=== PATIENT | female | born 1955 | race African-American/Black ===

== ENCOUNTER → 2024-10-06 | Outpatient (CLI) | payer MEDICARE, MEDICAID, SELFPAY ==
[2024-10-06 10:17] LABS: Collection Type, Urine Clean Catch
[2024-10-06 10:45] LABS: Basophils % (Auto) 1 % (0-2.5); Eosinophils # (Auto) 0.1 Thou/mm3 (0.0-0.5); Eosinophils % (Auto) 2 % (0-10); Hematocrit 32.2 % (36.0-46.0); Hemoglobin 10.3 g/dL (12.0-16.0); Immature Granulocytes % (Auto) 0 % (0-0); Immature Granulocytes Auto 0.01 Thou/mm3 (0.00-0.00); Lymphocytes # (Auto) 0.7 Thou/mm3 (1.0-4.8); Lymphocytes % (Auto) 19 % (10-50); Mean Corpuscular Hemoglobin 29.9 pg (25.0-35.0); Mean Corpuscular Volume 93 fL (80-100); Monocytes # (Auto) 0.2 Thou/mm3 (0.0-0.8); Monocytes % (Auto) 5 % (0-12); Neutrophils # (Auto) 2.7 Thou/mm3 (1.8-7.7); Neutrophils % (Auto) 73 % (37-80); Nucleated Red Blood Cell % 0 /100 WBC (0); Platelet Count 204 Thou/mm3 (140-440); RDW Standard Deviation 53.9 fL (36.4-46.3); Red Blood Count 3.45 Miln/mm3 (4.00-5.20); White Blood Count 3.7 Thou/mm3 (3.6-11.0)
[2024-10-06 11:03] LABS: Bilirubin,Urine Negative (Negative); Blood,Urine Negative (Negative); Clarity,Urine Clear (Clear/Hazy); Color,Urine Colorless (Lt Yel-Yel); Glucose, Urine Negative (Negative); Hyaline Casts,Urine < 1 /hpf (0-1); Ketones,Urine Negative (Negative); Leukocyte Esterase,Urine Positive (Negative); Nitrite,Urine Negative (Negative); Protein,Urine Negative (Neg - Trace); RBC,Urine 1 /hpf (0-3); Squamous Epithelial Cell,Urine 1 /hpf (0-5); Urobilinogen,Urine Negative mg/dL (0.0-1.0); WBC,Urine 7 /hpf (0-5)
[2024-10-06 11:30] LABS: Creatinine MALB Rnd Ur 35 mg/dL (30-125); Microalbumin Creat Ratio 9 mg/gCrea (<30); Microalbumin, Random Urine 3 mg/L (0-300)
[2024-10-06 12:06] LABS: Parathyroid Hormone Intact 51.2 pg/ml (18.5-88.0)
[2024-10-06 12:44] LABS: Alanine Aminotransferase 47 U/L (10-49); Albumin, Serum 4.2 gm/dL (3.4-4.8); Alkaline Phosphatase 84 U/L (46-116); Anion Gap 10 (7-16); Aspartate Amino Transferase 99 U/L (0-34); BUN/Creatinine Ratio 19 Ratio (12-20); Bilirubin,Direct 0.4 mg/dL (0.0-0.3); Bilirubin,Total 0.9 mg/dL (0.3-1.2); Blood Urea Nitrogen 28 mg/dL (9-23); Calcium 9.1 mg/dL (8.3-10.6); Calcium (Corrected) 9.1 mg/dL (8.5-10.1); Carbon Dioxide 22.4 mMol/L (20.0-31.0); Cardiac Risk Estimate 1.8 RATIO (3.7-5.6); Chloride 109 mMol/L (98-107); Cholesterol 98 mg/dL (132-200); Creatinine (Component) 1.5 mg/dL (0.6-1.3); Glucose 84 mg/dL (74-106); HDL Cholesterol 54 mg/dL (40-60); LDL Cholesterol,Calculated 30 mg/dL (0-130); Osmolality,Calculated 285 (275-295); Phosphorous 3.4 mg/dL (2.4-5.1); Potassium 4.2 mMol/L (3.4-5.1); Sodium 141 mMol/L (136-145); Total Protein 7.2 gm/dL (5.7-8.2); Triglycerides 68 mg/dL (30-150); eGFR 38 See Note
== END | disposition home or self-care (01) ==
PROVIDERS: PCP Student in an Organized Health Care Education/Training Program; Referring Provider Internal Medicine; Visit Provider Internal Medicine
DX: I12.9 Hypertensive chronic kidney disease with stage 1 through stage 4 chronic kidney disease, or unspecified chronic kidney disease (principal); N18.30 Chronic kidney disease, stage 3 unspecified; E78.5 Hyperlipidemia, unspecified
CPT/HCPCS: 36415; 80061; 80069; 80076; 81001; 82043; 82570; 83970; 85025

== ENCOUNTER 2024-11-04 13:08 | Outpatient (AMB) | payer MEDICARE, MEDICAID, SELFPAY ==
--- NOTE | 2024-11-04 13:21 | PD.RESCLINIC ---
Vital Signs 11/06/24 08:27 Height 1.63 m Height Method Stated Weight 83.092 kg Weight Measurement Method Standing Scale BMI 31.2 BP 132/84 H Blood Pressure Source Automatic Cuff Blood Pressure Location Left Upper Arm Position Sitting Respiration 16 Pulse 90 Pulse Source Monitor Temp 98.2 F Temp Source Temporal Artery Scan Pulse Oximetry (%) 98 Oxygen Delivery Method Room Air Allergies/Meds Allergies & Medications Allergies banana Allergy (Verified 11/06/24 08:29) heparin Allergy (Verified 11/06/24 08:29) rice Allergy (Verified 11/06/24 08:29) Medication Reconciliation meclizine 25 mg tablet 25 mg PO TID 11/19/23 [History Confirmed 07/08/24] melatonin 3 mg tablet 3 mg PO HS 11/19/23 [History Confirmed 07/08/24] umeclidinium 62.5 mcg-vilanterol 25 mcg/actuation powdr for inhalation (Anoro Ellipta) 1 inh inhalation QDAY PRN Dizziness Or Vertigo 11/19/23 [History Confirmed 07/08/24] albuterol 90 mcg/actuation aerosol inhaler 180 mcg inhalation Q4HR PRN sob 11/30/23 [History Confirmed 07/08/24] pantoprazole 40 mg tablet,delayed release 40 mg PO QDAY 1 month #60 tabs 12/11/23 [Rx Confirmed 07/08/24] fluticasone propionate 110 mcg/actuation HFA aerosol inhaler 1 puff inhalation BID wheezing #12 grams 02/08/24 [Rx Confirmed 07/08/24] hydrocodone 5 mg-acetaminophen 325 mg tablet 1 tab PO BID PRN pain #14 tabs 03/04/24 [Rx Confirmed 07/08/24] carisoprodol 350 mg tablet 350 mg PO TID PRN muscle pain #60 tabs 03/07/24 [Rx Confirmed 07/08/24] calcitriol 0.25 mcg capsule 0.25 mcg PO QDAY Chronic kidney Disease #90 caps 04/22/24 [Rx Confirmed 07/08/24] warfarin 5 mg tablet 5 mg PO QDAY@1200 Atrial Fibrillation #90 tabs 04/22/24 [Rx Confirmed 07/08/24] guaifenesin 100 mg/5 mL oral liquid 200 mg (10 mL) PO Q4H PRN congestion #473 mL 07/08/24 [Rx] amiodarone 100 mg tablet 100 mg PO BID 3 months #180 tabs 11/04/24 [Rx Confirmed 11/06/24] atorvastatin 80 mg tablet 80 mg PO QHS 1 month #30 tabs 11/04/24 [Rx Confirmed 11/06/24] diltiazem HCl 120 mg capsule,extended release 12 hr 120 mg PO BID 3 months #180 caps 11/04/24 [Rx Confirmed 11/06/24] furosemide 20 mg tablet 20 mg PO QDAY #7 tabs 11/04/24 [Rx Confirmed 11/06/24] nicotine 7 mg/24 hr daily transdermal patch 1 patch transdermal Q24H #14 ea 11/04/24 [Rx Confirmed 11/06/24] MA Intake Visit Data Collection New Patient or Established: Established Patient (seen at [facility] within 3 years) Seen by Clinical Staff ONLY (RN/RUSS): No Pain Present Currently: No Pain scale:: 0 Pain Scale Used: [employer]/Numerical Screw Remover Required: No PCP or OBGYN visit in last 3 months: Yes Hx Now: No Do You Feel Safe at Home: Yes Authorities Contacted: N/A Smoking Status Smoking Status: Current some day smoker Cessation Counseling Provided: LUZ ELENA was advised that quitting smoking is the single most important factor to protect the health of themselves and their family. Discussed the benefits of quitting smoking with patient. Encouraged patient to quit smoking and provided Cessation assistance materials and resources. Tobacco Use: Cigarette Years smoked: 20 Are you interested in quitting?: Yes Would you like additional Smoking Cessation Counseling?: No Immunization / Flu Flu Vaccine in the Last 12 Months: Yes Flu Vaccine Exclusion Criteria: Already Received Past Medical History Past Medical History NEUROLOGIC: Positive Cerebrovascular Accident CARDIAC: Positive Atrial Fibrillation and Congestive Heart Failure RESPIRATORY: Positive Chronic Obstructive Pulmonary Disease (COPD), Smoking and Smoking Exposure; Negative Smoking Cessation Counseling or Clubbing GASTROINTESTINAL: Positive Gastroesophageal Reflux Disease and Obesity (gastric bypass) GENITOURINARY: Positive Renal Disease MUSCULOSKELETAL: Positive Arthritis ENT: Positive Cataracts ENDOCRINE: Positive Diabetes Mellitus Type 2; Negative Diabetes Mellitus Type 1 HEMATOLOGIC: Positive Anemia Social History SMOKING STATUS: Smoking status: Current some day smoker ALCOHOL: Alcohol Intake: Current ALCOHOL FREQUENCY: Alcohol Intake Frequency: holidays/special occasions only HOUSING: Housing: mobile home LIVES WITH: Lives With: Spouse Patient Portal Questionaires Social History Living Situation History Housing: mobile home Housing Other:: pt lives with Tobacco History Smoking Status: Current some day smoker Alcohol History Alcohol Intake: Current Alcohol Intake Frequency: holidays/special occasions only Domestic Abuse History Do You Feel Safe at Home: Yes Review of Systems Report any current symptoms Only answer those that you have currently: Past Medical History Past Medical History Have you ever been diagnosed with any of the following: Neurological Problems Cerebrovascular Accident (CVA): Yes Cardiology Problems Atrial Fibrillation: Yes Congestive Heart Failure: Yes Respiratory Problems Chronic Obstructive Pulmonary Disease (COPD): Yes Smoking: Yes Smoking Cessation Counseling: No Smoking Exposure: Yes Clubbing: No Stomache/Intestinal Problems Gastroesophageal Reflux Disease: Yes Obesity: Yes (gastric bypass) Genital/Urinary Problems Renal Disease: Yes Musculoskeletal Problems Arthritis: Yes Head,Eye,Nose,Throat Problems Cataracts: Yes Endocrine Problems Diabetes Mellitus Type 1: No Diabetes Mellitus Type 2: Yes Blood Problems Anemia: Yes History of Present Illness HPI Narrative This 68-year-old female patient with past medical history for A-fib on amiodarone and warfarin, CKD III, COPD not on home oxygen, 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 She was managed for acute COPD exacerbation and atrial fibrilation in the hospital. Patient had problem with insurance coverage hence she was switched from eliquis to warfarin and was started on amiodarone after cardio consult for atrial fibrillation. Patient follows up with Dr Gaines, her outpatient research biologist. Patient reported that she feels improvement in her shortness of breath and only feels shortness of breath when she ambulates. Denies any other active concerns. She ran out from her amiodarone and was not taking them and needed refill for the medications. She continues to have irregular rhythm and feels palpitations. Plan was discussed with the patient that she would need INR testing in the lab today. Lab was called that patient's results will be required to be notified at Dr Gaines office once resulted. She was referred to Rotating Equipment Engineer, Dr Palmer for management of COPD. She was given refills for her medication amiodarone and albuterol inhaler. She was explained that she will need to get INR weekly or get an INR kit from cardiology clinic as warfarin is regulated with INR. She agreed to the plan and was reassured. 12/28/23: Patient was seen at the office today. Patients recent INR is 2.1 which is in therapeutic range. Patient has seen Dr Gaines and he plans to do cardioversion on January 02. She has appointment due in january with her Rotating Equipment Engineer. She had a concern for pain in her both knee joints more severe while walking. we ordered bilateral Knee XR to look for any pathology.She was advised to take Tylenolol 650 mg upto 3 times a day only for severe pain and stop taking aspirin due to interaction with warfarin. She will recieve an INR kit tomorrow and will follow up with Dr Gaines. She is currently taking warfarin 5 mg qday. She was advised to stop torsemide due to soft blood pressure and jardiance as her recent A1c was 5.3 and blood sugars were slightly above normal during hospital stay.We referred her to Dr Alves, Rubber Trimmer for her chronic kidney disease. We will follow on XR knee results.We will continue with rest of the management. 01/18/24: Patient was seen today in office. Patient was very teary and upset due to persistent symptoms of chest pain and shortness of breath. She reported having persistent palpitations and was concerned regarding her follow up with research biologist. Per Patient's wishes, we switched her Radio Interference Supervisor, Dr Posadas. I personally spoke to Dr Posadas to have a second opinion for ablation on phone call. He agreed to have a second opinion however due to her severe pulmonary hypertension and mitral valve repair research biologist suggested that shes not a candidate for ablation but he will follow up for symptomatic Atrial fib management Of note,Previously, she had a unsuccessful ablation per chart. Therefore , cardiology rec currently to increase her Diltiazem to 60 mg three times a day and continue with amiodarone 100 mg two times a day. Rest of the management will remain the same. She was advise to follow up with research biologist, automotive upholsterer & Orthopedics after scheduling her appt. She was advised to do her INR levels weekly in our [facility] and I will follow up until she sees research biologist. She had C/O severe bilateral knee , she has osteoarthritis B/L per XR knee. Per ortho, patient needs to have XR 4V B/L knee weight bearing as well. She was given norco 5/325 only 14 tabs for her severe knee pain. Advised her to follow up after four weeks. 02/08/2024: Patient was seen today at the office visit for follow-up. Patient seem to be asymptomatic and really pleasant and satisfied with her new research biologist, Dr. Sherrie Posadas. She reported that she had less frequent episodes of palpitations and shortness of breath. Per cardiology, her Cardizem dose was changed to 60 mg twice daily 2 capsules at morning and night. Patient also visited director of recruiting recommended to continue her inhalers albuterol, fluticasone inhalers. She also visited automotive upholsterer, Dr Alves. She has microalbuminuria. Labs showed normocytic anemia and kidney functions 30% with creatinine 1.8. We added losartan 25 mg for proteinuria. Medications were refilled. Patient has history of old CVA with ataxia there for she was advised to follow-up with her physical therapy outpatient. Patient reported having regurgitation with retrosternal burning therefore referral was made with returns supervisor, Dr. Mckeon. She received corticosteroids injections intra-articular last week feels significantly improved when she visited Dr. Lai, orthopedics. 07/01/2024: Patient was seen in the [facility] today. Patient reported to have cough from last 2 weeks associated with white phlegm which is present only when she goes to bed for sleeping. She is actively smoking cigarette 6 cigarettes every day and trying to cut back on that. Patient denied any fever any chills, chest pain, any other signs of infection. She did not had swelling in her lower extremities. She was taking her home medications with compliance. Patient was advised to follow-up next week with new orders chest x-ray, BMP, BNP and was given prescription of prednisone 5 mg for 7 days for possible concern for component of bronchospasm and the underlying setting of COPD as culprit for her productive cough. Examination was significant for cough elicited on prolonged expiration. Patient was advised to continue her home medications as prescribed and will likely be follow-up next week with lab results. 07/08/24: Pt came for follow up for labs and she showed improvement in her SOB after steroids course and albuterol inhaler in combination with other inhaler. Still compliants of having orhtopnea. Chest x-ray showed B/L edema and mod vasc congestion. BNP 115 and Kidney functions showing Cr 1.8 Electrolyes unremarkable.Patient was advised to take lasix extra dose half pill once in a week to get rid of extra fluids if SBP above 120 and DBP above 80 so taking 60 mg lasix once every week.Will be given referral for Sales Technician Home Theater for eye examination due to haziness in right eye. 11/04/2024: Patient was seen and examined in the clinic today. Patient has been doing well and did not had any active concerns. She has been feeling very good and has been exercising every day. Examination showed improvement in bilateral air entry and no wheezing was heard. Patient wanted to have a prescription refill for amiodarone, diltiazem, atorvastatin and patient wished to change pharmacy to [facility]. Patient also wanted to have follow-up with household worker for eye checkup, GI follow-up for GERD and DANCE COACH follow-up for breast examination. Referrals were given. Patient was advised to make an appointment with respective referrals. Medications were reviewed. Patient is getting her labs/blood work by automotive upholsterer, Dr Alves next month. Of note, patient's Lasix dose was reduced to 20 mg once daily by automotive upholsterer. Review of Systems Review of Systems Systems Reviewed: All systems reviewed, normal except as documented Objective/Exam Narrative Physical exam: General: Pt is not in acute distress, answering questions appropriately, making appropriate eye contact. Saturating well on room air. HEENT: Normocephalic, atraumatic, EOMI, PERRLA, moist oral mucosa, Cardiac: irregular rate and rhythm, normal S1/S2, no murmurs. Soft blood pressure Lungs: Bilateral clear breath sounds heard on auscultation. No wheezing heard. Abdomen: Soft, nontender, nondistended, positive bowel sounds in all quadrants. No guarding or rebound tenderness. Neurology:Alert and oriented x 3. Cranial nerves II to XII intact and patient able to move all 4 extremities. Extremities: Normal to inspection, no edema, no cyanosis, strong peripheral pulses. Psych: appropriate mood and affect. Assessment & Plan Diagnosis / Problem List (1) Atrial fibrillation: Status: Acute Qualifiers: Atrial fibrillation type: unspecified chronic Qualified Code(s): I48.20 - Chronic atrial fibrillation, unspecified Assessment & Plan: #Atrial fibrillation, rate controlled ? Patient has a history of chronic A-fib currently rate controlled. Follows Dr. Posadas, research biologist. ? No active complaints Plan: ? Patient was given prescription refills for amiodarone 100 mg twice daily and diltiazem ER 120 mg Q12 [facility] ? Patient has been following with Dr. Posadas as outpatient ? Patient needed referral for eye checkup for ophthalmology, needed referral for this examination to DANCE COACH and needed appointment for GI specialist as she is has a history of GERD ? Patient was recommended to book an appointment for the respective referrals and can follow-up in the clinic as needed ? Patient currently have refills on rest of her medications for COPD and CKD ? Patient will get blood work next month with Dr. Alves, automotive upholsterer and dose of Lasix was reduced by automotive upholsterer to 20 mg once daily Patient was seen and discussed with attending physician, Dr.Watankunakorn Dr. Martha MD, PGY 2 (2) COPD (chronic obstructive pulmonary disease): Status: Acute (3) CKD (chronic kidney disease) stage 3, GFR 30-59 ml/min: Status: Acute (4) GERD (gastroesophageal reflux disease): Status: Acute Orders: Referrals Ophthalmology DANCE COACH Gastroenterology Additional Assessment Internal Medicine Attending Note: Case discussed with and agree with note and management plan of Resident Physician as per Resident's Note above. Issues of concern for present visit are as follows: Follow-up visit. History of atrial fibrillation, COPD, CKD. Patient continues to follow with cardiology, also follows with nephrology. Has blood work scheduled for next month. Needed refills are provided today. Referral for ophthalmology evaluation, CUSTOMER SERVICE ENGINEER for exam, referral to gastroenterology with history of GERD, possible candidate for upper endoscopy to evaluate. Otherwise doing well. Edgar Richardson MD Advanced Care Planning Advance care planning discussed with:: patient Physician Billing Established Patient Established Patient: E/M Level 3-CPT 23404 Office Procedures [facility] Level of Care Nursing/Assessment Patient Status: Established Patient Nursing Assessment/Reassessment: Medication Reconciliation, Update PMH in EMR and Vital Signs Coordination of Care: Complex Care and Chronic Disease 1-5, Consent,records obtained, informed consent, Education Simp Pt/Fam and Staff clarify orders Established Patient Charge Established Patient Point Assignment: 85 Established Patient Point Charge: EP Level 3 (80-115)
[2024-11-06 08:27] VITALS: BP 132/84; PULSE 90; RESP 16; TEMP 36.8; O2SAT 98; BMI 31.2
== END 2024-11-04 15:00 | disposition home or self-care (01) ==
LOC: HODAHC 13:08
PROVIDERS: PCP Student in an Organized Health Care Education/Training Program; Referring Provider Student in an Organized Health Care Education/Training Program; Supervising Provider Internal Medicine; Visit Provider Student in an Organized Health Care Education/Training Program
DX: I48.20 Chronic atrial fibrillation, unspecified (principal); J44.9 Chronic obstructive pulmonary disease, unspecified; N18.9 Chronic kidney disease, unspecified; K21.9 Gastro-esophageal reflux disease without esophagitis; Z76.0 Encounter for issue of repeat prescription
CPT/HCPCS: 99213; G0463

== ENCOUNTER 2024-12-02 13:28 | Outpatient (AMB) | payer MEDICARE, MEDICAID, SELFPAY ==
[2024-12-02 13:48] VITALS: BP 88/60; PULSE 78; RESP 16; TEMP 36.3; O2SAT 93; BMI 25.8
--- NOTE | 2024-12-02 13:48 | ACNOTE_ITS ---
Vital Signs 12/02/24 13:48 Height 1.63 m Height Method Stated Weight 68.549 kg Weight Measurement Method Standing Scale BMI 25.8 BP 88/60 L Blood Pressure Source Automatic Cuff Blood Pressure Location Left Upper Arm Position Sitting Respiration 16 Pulse 78 Pulse Source Monitor Temp 97.3 F Temp Source Temporal Artery Scan Pulse Oximetry (%) 93 L Oxygen Delivery Method Room Air Allergies/Meds Allergies & Medications Allergies banana Allergy (Verified 12/02/24 13:49) heparin Allergy (Verified 12/02/24 13:49) rice Allergy (Verified 12/02/24 13:49) MA Intake Visit Data Collection New Patient or Established: Established Patient (seen at [facility] within 3 years) Seen by Clinical Staff ONLY (RN/MA): No Pain Present Currently: No Pain scale:: 0 Pain Scale Used: [employer]/Numerical Second Language Tutor Required: No PCP or OBGYN visit in last 3 months: Yes Hx Now: No Do You Feel Safe at Home: Yes Authorities Contacted: N/A Smoking Status Smoking Status: Current some day smoker Cessation Counseling Provided: LUZ ELENA was advised that quitting smoking is the single most important factor to protect the health of themselves and their family. Discussed the benefits of quitting smoking with patient. Encouraged patient to quit smoking and provided Cessation assistance materials and resources. Tobacco Use: Cigarette Years smoked: 20 Are you interested in quitting?: No Immunization / Flu Flu Vaccine in the Last 12 Months: No Flu Vaccine Exclusion Criteria: No Exclusion Criteria Past Medical History Past Medical History NEUROLOGIC: Positive Cerebrovascular Accident CARDIAC: Positive Atrial Fibrillation and Congestive Heart Failure RESPIRATORY: Positive Chronic Obstructive Pulmonary Disease (COPD), Smoking and Smoking Exposure; Negative Smoking Cessation Counseling or Clubbing GASTROINTESTINAL: Positive Gastroesophageal Reflux Disease and Obesity (gastric bypass) GENITOURINARY: Positive Renal Disease MUSCULOSKELETAL: Positive Arthritis ENT: Positive Cataracts ENDOCRINE: Positive Diabetes Mellitus Type 2; Negative Diabetes Mellitus Type 1 HEMATOLOGIC: Positive Anemia Social History SMOKING STATUS: Smoking status: Current some day smoker ALCOHOL: Alcohol Intake: Current ALCOHOL FREQUENCY: Alcohol Intake Frequency: holidays/special occasions only HOUSING: Housing: mobile home LIVES WITH: Lives With: Spouse Patient Portal Questionaires Social History Living Situation History Housing: mobile home Housing Other:: pt lives with Tobacco History Smoking Status: Current some day smoker Alcohol History Alcohol Intake: Current Alcohol Intake Frequency: holidays/special occasions only Domestic Abuse History Do You Feel Safe at Home: Yes Review of Systems Report any current symptoms Only answer those that you have currently: Past Medical History Past Medical History Have you ever been diagnosed with any of the following: Neurological Problems Cerebrovascular Accident (CVA): Yes Cardiology Problems Atrial Fibrillation: Yes Congestive Heart Failure: Yes Respiratory Problems Chronic Obstructive Pulmonary Disease (COPD): Yes Smoking: Yes Smoking Cessation Counseling: No Smoking Exposure: Yes Clubbing: No Stomache/Intestinal Problems Gastroesophageal Reflux Disease: Yes Obesity: Yes (gastric bypass) Genital/Urinary Problems Renal Disease: Yes Musculoskeletal Problems Arthritis: Yes Head,Eye,Nose,Throat Problems Cataracts: Yes Endocrine Problems Diabetes Mellitus Type 1: No Diabetes Mellitus Type 2: Yes Blood Problems Anemia: Yes History of Present Illness HPI Narrative This 68-year-old female patient with past medical history for A-fib on amiodarone and warfarin, CKD III, COPD not on home oxygen, 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 She was managed for acute COPD exacerbation and atrial fibrilation in the hospital. Patient had problem with insurance coverage hence she was switched from eliquis to warfarin and was started on amiodarone after cardio consult for atrial fibrillation. Patient follows up with Dr Gaines, her outpatient insurance associate. Patient reported that she feels improvement in her shortness of breath and only feels shortness of breath when she ambulates. Denies any other active concerns. She ran out from her amiodarone and was not taking them and needed refill for the medications. She continues to have irregular rhythm and feels palpitations. Plan was discussed with the patient that she would need INR testing in the lab today. Lab was called that patient's results will be required to be notified at Dr Gaines office once resulted. She was referred to Veneer Manufacturer, Dr Palmer for management of COPD. She was given refills for her medication amiodarone and albuterol inhaler. She was explained that she will need to get INR weekly or get an INR kit from cardiology clinic as warfarin is regulated with INR. She agreed to the plan and was reassured. 12/28/23: Patient was seen at the office today. Patients recent INR is 2.1 which is in therapeutic range. Patient has seen Dr Gaines and he plans to do cardioversion on January 02. She has appointment due in january with her Veneer Manufacturer. She had a concern for pain in her both knee joints more severe while walking. we ordered bilateral Knee XR to look for any pathology.She was advised to take Tylenolol 650 mg upto 3 times a day only for severe pain and stop taking aspirin due to interaction with warfarin. She will recieve an INR kit tomorrow and will follow up with Dr Gaines. She is currently taking warfarin 5 mg qday. She was advised to stop torsemide due to soft blood pressure and jardiance as her recent A1c was 5.3 and blood sugars were slightly above normal during hospital stay.We referred her to Dr Alves, Parole Hearing Officer for her chronic kidney disease. We will follow on XR knee results.We will continue with rest of the management. 01/18/24: Patient was seen today in office. Patient was very teary and upset due to persistent symptoms of chest pain and shortness of breath. She reported having persistent palpitations and was concerned regarding her follow up with insurance associate. Per Patient's wishes, we switched her Professor Of Food Biochemistry, Dr Posadas. I personally spoke to Dr Posadas to have a second opinion for ablation on phone call. He agreed to have a second opinion however due to her severe pulmonary hypertension and mitral valve repair insurance associate suggested that shes not a candidate for ablation but he will follow up for symptomatic Atrial fib management Of note,Previously, she had a unsuccessful ablation per chart. Therefore , cardiology rec currently to increase her Diltiazem to 60 mg three times a day and continue with amiodarone 100 mg two times a day. Rest of the management will remain the same. She was advise to follow up with insurance associate, scientific research manager & Orthopedics after scheduling her appt. She was advised to do her INR levels weekly in our [facility] and I will follow up until she sees insurance associate. She had C/O severe bilateral knee , she has osteoarthritis B/L per XR knee. Per ortho, patient needs to have XR 4V B/L knee weight bearing as well. She was given norco 5/325 only 14 tabs for her severe knee pain. Advised her to follow up after four weeks. 02/08/2024: Patient was seen today at the office visit for follow-up. Patient seem to be asymptomatic and really pleasant and satisfied with her new insurance associate, Dr. Sherrie Posadas. She reported that she had less frequent episodes of palpitations and shortness of breath. Per cardiology, her Cardizem dose was changed to 60 mg twice daily 2 capsules at morning and night. Patient also visited energy project manager recommended to continue her inhalers albuterol, fluticasone inhalers. She also visited scientific research manager, Dr Alves. She has microalbuminuria. Labs showed normocytic anemia and kidney functions 30% with creatinine 1.8. We added losartan 25 mg for proteinuria. Medications were refilled. Patient has history of old CVA with ataxia there for she was advised to follow-up with her physical therapy outpatient. Patient reported having regurgitation with retrosternal burning therefore referral was made with tower equipment installer, Dr. Mckeon. She received corticosteroids injections intra- articular last week feels significantly improved when she [facility]. 07/01/2024: Patient was seen in the [facility] today. Patient reported to have cough from last 2 weeks associated with white phlegm which is present only when she goes to bed for sleeping. She is actively smoking cigarette 6 cigarettes every day and trying to cut back on that. Patient denied any fever any chills, chest pain, any other signs of infection. She did not had swelling in her lower extremities. She was taking her home medications with compliance. Patient was advised to follow-up next week with new orders chest x- ray, BMP, BNP and was given prescription of prednisone 5 mg for 7 days for possible concern for component of bronchospasm and the underlying setting of COPD as culprit for her productive cough. Examination was significant for cough elicited on prolonged expiration. Patient was advised to continue her home medications as prescribed and will likely be follow-up next week with lab results. 07/08/24: Pt came for follow up for labs and she showed improvement in her SOB after steroids course and albuterol inhaler in combination with other inhaler. Still compliants of having orhtopnea. Chest x-ray showed B/L edema and mod vasc congestion. BNP 115 and Kidney functions showing Cr 1.8 Electrolyes unremarkable.Patient was advised to take lasix extra dose half pill once in a week to get rid of extra fluids if SBP above 120 and DBP above 80 so taking 60 mg lasix once every week.Will be given referral for Remote Sensing Program Manager for eye examination due to haziness in right eye. 11/04/2024: Patient was seen and examined in the clinic today. Patient has been doing well and did not had any active concerns. She has been feeling very good and has been exercising every day. Examination showed improvement in bilateral air entry and no wheezing was heard. Patient wanted to have a prescription refill for amiodarone, diltiazem, atorvastatin and patient wished to change pharmacy to [facility]. Patient also wanted to have follow-up with graining machine operator for eye checkup, GI follow-up for GERD and WALL TAPER follow-up for breast examination. Referrals were given. Patient was advised to make an appointment with respective referrals. Medications were reviewed. Patient is getting her labs/blood work by scientific research manager, Dr Alves next month. Of note, patient's Lasix dose was reduced to 20 mg once daily by scientific research manager. 12/02/2024: Patient was seen and examined in the clinic. Patient reported extreme fatigability and burning sensation with numbness and tingling in both lower extremities. She reported that she had an episode of presyncope last week during her wedding. Examination showed no lower extremity edema or wheezing. She was having tachycardia irregularly irregular. She wanted to have prescription for her medications which was given. She was also complaining of muscle soreness and feeling tired. She also reported to have cold intolerance despite warm temperature outside.Plan is to order thyroid function test, iron panel and A1c as all the tests were performed last year. Additionally, atorvastatin was discontinued and pravastatin 40 mg was started given less risk of muscle weakness as compared to atorvastatin. Her blood pressure was really soft and was recommended to take Lasix every other day and follow-up with cardiology in a week. Follow-up in a week in clinic. Review of Systems Review of Systems Systems Reviewed: All systems reviewed, normal except as documented Objective/Exam Narrative Physical exam: General: Pt is not in acute distress, answering questions appropriately, making appropriate eye contact. Saturating well on room air. HEENT: Normocephalic, atraumatic, EOMI, PERRLA, moist oral mucosa, Cardiac: irregular rate and rhythm, normal S1/S2, no murmurs. Soft blood pressure Lungs: Bilateral clear breath sounds heard on auscultation. No wheezing heard. Abdomen: Soft, nontender, nondistended, positive bowel sounds in all quadrants. No guarding or rebound tenderness. Neurology:Alert and oriented x 3. Cranial nerves II to XII intact and patient able to move all 4 extremities. Extremities: Normal to inspection, no edema, no cyanosis, strong peripheral pulses. Psych: appropriate mood and affect. Assessment & Plan Diagnosis / Problem List (1) Neuropathy of foot: Status: Acute Qualifiers: Laterality: unspecified laterality Qualified Code(s): G57.90 - Unspecified mononeuropathy of unspecified lower limb Assessment & Plan: ? Patient presented with numbness and tingling with burning sensation in both lower extremities. Plan: ? Started on Lyrica 25 mg at night to evaluate if it helps ? Ordered A1c to screen for diabetes and iron panel for iron deficiency (2) Iron deficiency: Status: Acute Assessment & Plan: ? Patient reported that she is feeling fatigued out, generalized weakness and had a presyncope episode a week ago. ?Her blood pressure was soft 88/60 Plan: ? Recommended to continue Lasix 20 mg every other day ? Ordered iron panel to screen for iron deficiency as she has a history of mechanical valve replacement as well ?Patient will follow-up with insurance associate, Dr. Posadas on Sunday on 12/05/2024 (3) Screening for thyroid disorder: Status: Acute Assessment & Plan: ? Patient reported to have cold intolerance and fatigability with dryness of skin Plan: ? Ordered thyroid function test to evaluate for thyroid abnormalities (4) Screening for diabetes mellitus: Status: Acute Assessment & Plan: ? Patient reported burning sensation with numbness and tingling in both lower extremities. Plan: ? Ordered A1c to rule out diabetes (5) Hypotension: Status: Acute Assessment & Plan: ? Patient's blood pressure was 88/60, heart rate 78 and saturating 90% on room air Plan: ? Recommended to take Lasix 20 mg every other day ? Patient did not appear volume overloaded ? Encouraged on using cane while walking to avoid fall ? Patient is has a follow-up with insurance associate on 12/05 Patient was seen and discussed with attending physician, Dr.Wat[place]akunakorn Dr. Martha MD, PGY 2 Orders: Orders Free T4 (Free Thyroxine) Today Z13.29 - Encounter for screening for other suspected endocrine disorder Ambulatory Hemoglobin A1C Today Z13.1 - Encounter for screening for diabetes mellitus Thyroid Stimulating Hormone Today Z13.29 - Encounter for screening for other suspected endocrine disorder Iron Panel Today E61.1 - Iron deficiency Advanced Care Planning Advance care planning discussed with:: patient Office Procedures [facility] Level of Care Nursing/Assessment Patient Status: Established Patient Nursing Assessment/Reassessment: Medication Reconciliation, Update PMH in EMR and Vital Signs Coordination of Care: Complex Care and Chronic Disease 1-5, Consent,records obtained, informed consent, Education Simp Pt/Fam and Staff clarify orders Established Patient Charge Established Patient Point Assignment: 85 Established Patient Point Charge: EP Level 3 (80-115)
== END 2024-12-02 14:18 | disposition home or self-care (01) ==
LOC: HODAHC 13:28
PROVIDERS: PCP Student in an Organized Health Care Education/Training Program; Referring Provider Student in an Organized Health Care Education/Training Program; Supervising Provider Internal Medicine; Visit Provider Student in an Organized Health Care Education/Training Program
DX: G62.9 Polyneuropathy, unspecified (principal); E61.1 Iron deficiency; R53.83 Other fatigue; I95.9 Hypotension, unspecified
CPT/HCPCS: 99213; G0463

== ENCOUNTER → 2024-12-02 | Outpatient (CLI) | payer MEDICARE, SELFPAY ==
[2024-12-02 16:28] LABS: Glucose Estimated Average 111 mg/dL (80-131); Hemoglobin A1C 5.5 % Hgb (4.8-6.0)
[2024-12-02 19:00] LABS: Free T4 (Free Thyroxine) 1.53 ng/dL (0.89-1.76); Thyroid Stimulating Hormone 1.14 uIU/mL (0.55-4.78)
[2024-12-02 21:25] LABS: Iron 72 mcg/dL (50-170); Percent Iron Saturation 23 % (20-55); Total Iron Binding Capacity 301 mcg/dL (250-425); Unsaturated Iron Binding 229 (225-295)
== END | disposition home or self-care (01) ==
PROVIDERS: PCP Student in an Organized Health Care Education/Training Program; Referring Provider Student in an Organized Health Care Education/Training Program; Visit Provider Student in an Organized Health Care Education/Training Program
DX: E61.1 Iron deficiency (principal); Z13.1 Encounter for screening for diabetes mellitus; Z13.29 Encounter for screening for other suspected endocrine disorder
CPT/HCPCS: 36415; 83036; 83540; 83550; 84439; 84443

== ENCOUNTER 2024-12-23 13:38 | Outpatient (AMB) | payer MEDICARE, SELFPAY ==
[2024-12-23 13:52] VITALS: BP 90/59; PULSE 76; RESP 14; TEMP 36.2; O2SAT 98; BMI 25.6
--- NOTE | 2024-12-23 13:52 | ACNOTE_ITS ---
Vital Signs 12/23/24 13:52 Height 1.63 m Height Method Stated Weight 68.152 kg Weight Measurement Method Standing Scale BMI 25.6 BP 90/59 L Blood Pressure Source Automatic Cuff Blood Pressure Location Left Upper Arm Position Sitting Respiration 14 Pulse 76 Pulse Source Monitor Temp 97.2 F Temp Source Oral Pulse Oximetry (%) 98 Oxygen Delivery Method Room Air Allergies/Meds Allergies & Medications Allergies banana Allergy (Verified 12/23/24 13:53) heparin Allergy (Verified 12/23/24 13:53) rice Allergy (Verified 12/23/24 13:53) Medication Reconciliation meclizine 25 mg tablet 25 mg PO TID 11/19/23 [History Confirmed 12/23/24] melatonin 3 mg tablet 3 mg PO HS 11/19/23 [History Confirmed 12/23/24] umeclidinium 62.5 mcg-vilanterol 25 mcg/actuation powdr for inhalation (Anoro [place] lipta) 1 inh inhalation QDAY PRN Dizziness Or Vertigo 11/19/23 [History Confirmed 12/23/24] albuterol 90 mcg/actuation aerosol inhaler 180 mcg inhalation Q4HR PRN sob 11/30/23 [History Confirmed 12/23/24] fluticasone propionate 110 mcg/actuation HFA aerosol inhaler 1 puff inhalation BID wheezing #12 grams 02/08/24 [Rx Confirmed 12/23/24] warfarin 5 mg tablet 5 mg PO QDAY@1200 Atrial Fibrillation #90 tabs 04/22/24 [Rx Confirmed 12/23/24] guaifenesin 100 mg/5 mL oral liquid 200 mg (10 mL) PO Q4H PRN congestion #473 mL 07/08/24 [Rx Confirmed 12/23/24] nicotine 7 mg/24 hr daily transdermal patch 1 patch transdermal Q24H #14 ea 11/04/24 [Rx Confirmed 12/23/24] amiodarone 100 mg tablet 100 mg PO BID 3 months #180 tabs 12/02/24 [Rx Confirmed 12/23/24] calcitriol 0.25 mcg capsule 0.25 mcg PO QDAY Chronic kidney Disease #90 caps 12/02/24 [Rx Confirmed 12/23/24] pantoprazole 40 mg tablet,delayed release 40 mg PO QDAY 1 month #60 tabs 12/02/24 [Rx Confirmed 12/23/24] pravastatin 40 mg tablet 40 mg PO QHS #90 tabs 12/02/24 [Rx Confirmed 12/23/24] pregabalin 25 mg capsule (Lyrica) 25 mg PO QHS #30 caps 12/02/24 [Rx Confirmed 12/23/24] cyanocobalamin (vitamin B-12) 1,000 mcg/mL injection solution 1,000 mcg IM QWEEK 4 weeks #4 mL 12/23/24 [Rx] furosemide 20 mg tablet 20 mg PO Q OTHER DAY #60 tabs 12/23/24 [Rx] vitamin B complex-vitamin C-folic acid 0.8 mg tablet (Mica-Mary) 1 tab PO QDAY #90 tabs 12/23/24 [Rx] MA Intake Visit Data Collection New Patient or Established: Established Patient (seen at [facility] within 3 years) Seen by Clinical Staff ONLY (RN/MA): No Reason for Visit:: LAB RESULTS Pain Present Currently: Yes Pain Location: Head Pain scale:: 7 Pain Scale Used: [employer]/Numerical Application Developer Manager Required: No PCP or OBGYN visit in last 3 months: Yes Hx Now: No Do You Feel Safe at Home: Yes Authorities Contacted: N/A Smoking Status Smoking Status: Current some day smoker Cessation Counseling Provided: LUZ ELENA was advised that quitting smoking is the single most important factor to protect the health of themselves and their family. Discussed the benefits of quitting smoking with patient. Encouraged patient to quit smoking and provided Cessation assistance materials and resources. Tobacco Use: Cigarette Years smoked: 20 Are you interested in quitting?: No Immunization / Flu Flu Vaccine in the Last 12 Months: Yes Flu Vaccine Exclusion Criteria: No Exclusion Criteria Past Medical History Past Medical History NEUROLOGIC: Positive Cerebrovascular Accident CARDIAC: Positive Atrial Fibrillation and Congestive Heart Failure RESPIRATORY: Positive Chronic Obstructive Pulmonary Disease (COPD), Smoking and Smoking Exposure; Negative Smoking Cessation Counseling or Clubbing GASTROINTESTINAL: Positive Gastroesophageal Reflux Disease and Obesity (gastric bypass) GENITOURINARY: Positive Renal Disease MUSCULOSKELETAL: Positive Arthritis ENT: Positive Cataracts ENDOCRINE: Positive Diabetes Mellitus Type 2; Negative Diabetes Mellitus Type 1 HEMATOLOGIC: Positive Anemia Social History SMOKING STATUS: Smoking status: Current some day smoker ALCOHOL: Alcohol Intake: Current ALCOHOL FREQUENCY: Alcohol Intake Frequency: holidays/special occasions only HOUSING: Housing: mobile home LIVES WITH: Lives With: Spouse Patient Portal Questionaires PHQ-9 PHQ-2 Over the last 2 weeks, how often have you been bothered by any of the following problems? 1. Little interest or pleasure in doing things: not at all 2. Feeling down, depressed, or hopeless: not at all Total score: 0 Social History Living Situation History Housing: mobile home Housing Other:: pt lives with Tobacco History Smoking Status: Current some day smoker Alcohol History Alcohol Intake: Current Alcohol Intake Frequency: holidays/special occasions only Domestic Abuse History Do You Feel Safe at Home: Yes Review of Systems Report any current symptoms Only answer those that you have currently: Past Medical History Past Medical History Have you ever been diagnosed with any of the following: Neurological Problems Cerebrovascular Accident (CVA): Yes Cardiology Problems Atrial Fibrillation: Yes Congestive Heart Failure: Yes Respiratory Problems Chronic Obstructive Pulmonary Disease (COPD): Yes Smoking: Yes Smoking Cessation Counseling: No Smoking Exposure: Yes Clubbing: No Stomache/Intestinal Problems Gastroesophageal Reflux Disease: Yes Obesity: Yes (gastric bypass) Genital/Urinary Problems Renal Disease: Yes Musculoskeletal Problems Arthritis: Yes Head,Eye,Nose,Throat Problems Cataracts: Yes Endocrine Problems Diabetes Mellitus Type 1: No Diabetes Mellitus Type 2: Yes Blood Problems Anemia: Yes History of Present Illness HPI Narrative This 68-year-old female patient with past medical history for A-fib on amiodarone and warfarin, CKD III, COPD not on home oxygen, 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 She was managed for acute COPD exacerbation and atrial fibrilation in the hospital. Patient had problem with insurance coverage hence she was switched from eliquis to warfarin and was started on amiodarone after cardio consult for atrial fibrillation. Patient follows up with Dr Gaines, her outpatient career guidance counselor. Patient reported that she feels improvement in her shortness of breath and only feels shortness of breath when she ambulates. Denies any other active concerns. She ran out from her amiodarone and was not taking them and needed refill for the medications. She continues to have irregular rhythm and feels palpitations. Plan was discussed with the patient that she would need INR testing in the lab today. Lab was called that patient's results will be required to be notified at Dr Gaines office once resulted. She was referred to Tow Operator, Dr Palmer for management of COPD. She was given refills for her medication amiodarone and albuterol inhaler. She was explained that she will need to get INR weekly or get an INR kit from cardiology clinic as warfarin is regulated with INR. She agreed to the plan and was reassured. 12/28/23: Patient was seen at the office today. Patients recent INR is 2.1 which is in therapeutic range. Patient has seen Dr Gaines and he plans to do cardioversion on January 02. She has appointment due in january with her Tow Operator. She had a concern for pain in her both knee joints more severe while walking. we ordered bilateral Knee XR to look for any pathology.She was advised to take Tylenolol 650 mg upto 3 times a day only for severe pain and stop taking aspirin due to interaction with warfarin. She will recieve an INR kit tomorrow and will follow up with Dr Gaines. She is currently taking warfarin 5 mg qday. She was advised to stop torsemide due to soft blood pressure and jardiance as her recent A1c was 5.3 and blood sugars were slightly above normal during hospital stay.We referred her to Dr Alves, [facility] for her chronic kidney disease. We will follow on XR knee results.We will continue with rest of the management. 01/18/24: Patient was seen today in office. Patient was very teary and upset due to persistent symptoms of chest pain and shortness of breath. She reported having persistent palpitations and was concerned regarding her follow up with career guidance counselor. Per Patient's wishes, we switched her Occupational Medicine Physician, Dr Posadas. I personally spoke to Dr Posadas to have a second opinion for ablation on phone call. He agreed to have a second opinion however due to her severe pulmonary hypertension and mitral valve repair career guidance counselor suggested that shes not a candidate for ablation but he will follow up for symptomatic Atrial fib management Of note,Previously, she had a unsuccessful ablation per chart. Therefore , cardiology rec currently to increase her Diltiazem to 60 mg three times a day and continue with amiodarone 100 mg two times a day. Rest of the man agement will remain the same. She was advise to follow up with career guidance counselor, miniature set constructor & Orthopedics after scheduling her appt. She was advised to do her INR levels weekly in our [facility] and I will follow up until she sees career guidance counselor. She had C/O severe bilateral knee , she has osteoarthritis B/L per XR knee. Per ortho, patient needs to have XR 4V B/L knee weight bearing as well. She was given norco 5/325 only 14 tabs for her severe knee pain. Advised her to follow up after four weeks. 02/08/2024: Patient was seen today at the office visit for follow-up. Patient seem to be asymptomatic and really pleasant and satisfied with her new career guidance counselor, Dr. Sherrie Posadas. She reported that she had less frequent episodes of palpitations and shortness of breath. Per cardiology, her Cardizem dose was changed to 60 mg twice daily 2 capsules at morning and night. Patient also visited signing agent recommended to continue her inhalers albuterol, fluticasone inhalers. She also visited miniature set constructor, Dr Alves. She has microalbuminuria. Labs showed normocytic anemia and kidney functions 30% with creatinine 1.8. We added losartan 25 mg for proteinuria. Medications were ref illed. Patient has history of old CVA with ataxia there for she was advised to follow-up with her physical therapy outpatient. Patient reported having regurgitation with retrosternal burning therefore referral was made with supervisor solder making, Dr. Mckeon. She received corticosteroids injections intra- articular last week feels significantly improved when she visited Dr. Lai, orthopedics. 07/01/2024: Patient was seen in the [facility] today. Patient reported to have cough from last 2 weeks associated with white phlegm which is present only when she goes to bed for sleeping. She is actively smoking cigarette 6 cigarettes every day and trying to cut back on that. Patient denied any fever any chills, chest pain, any other signs of infection. She did not had swelling in her lower extremities. She was taking her home medications with compliance. Patient was advised to follow-up next week with new orders chest x-ray, BMP, BNP and was given prescription of prednisone 5 mg for 7 days for possible concern for component of bronchospasm and the underlying setting of COPD as culprit for her productive cough. Examination was significant for cough elicited on prolonged expiration. Patient was advised to continue her home medications as prescribed and will likely be follow-up next week with lab results. 07/08/24: Pt came for follow up for labs and she showed improvement in her SOB after steroids course and albuterol inhaler in combination with other inhaler. Still compliants of having orhtopnea. Chest x-ray showed B/L edema and mod vasc congestion. BNP 115 and Kidney functions showing Cr 1.8 Electrolyes unremarkable.Patient was advised to take lasix extra dose half pill once in a week to get rid of extra fluids if SBP above 120 and DBP above 80 so taking 60 mg lasix once every week.Will be given referral for Inbound Customer Service Agent for eye examination due to haziness in right eye. 11/04/2024: Patient was seen and examined in the clinic today. Patient has been doing well and did not had any active concerns. She has been feeling very good and has been exercising every day. Examination showed improvement in bilateral air entry and no wheezing was heard. Patient wanted to have a prescription refill for amiodarone, diltiazem, atorvastatin and patient wished to change pharmacy to [facility]. Patient also wanted to have follow-up with potato sorter for eye checkup, GI follow-up for GERD and TEA TASTER follow-up for breast examination. Referrals were given. Patient was advised to make an appointment with respective referrals. Medications were reviewed. Patient is getting her labs/blood work by miniature set constructor, Dr Alves next month. Of note, patient's Lasix dose was reduced to 20 mg once daily by miniature set constructor. 12/02/2024: Patient was seen and examined in the clinic. Patient reported extreme fatigability and burning sensation with numbness and tingling in both lower extremities. She reported that she had an episode of presyncope last week during her wedding. Examination showed no lower extremity edema or wheezing. She was having tachycardia irregularly irregular. She wanted to have prescription for her medications which was given. She was also complaining of muscle soreness and feeling tired. She also reported to have cold intolerance despite warm temperature outside.Plan is to order thyroid function test, iron panel and A1c as all the tests were performed last year. Additionally, atorvastatin was discontinued and pravastatin 40 mg was started given less risk of muscle weakness as compared to atorvastatin. Her blood pressure was really soft and was recommended to take Lasix every other day and follow-up with cardiology in a week. Follow-up in a week in clinic. 12/23/24: Patient was seen and examined in the clinic today. She reported to have fatigability and generalized weakness with dryness of the mouth and dizziness. Patient reported that she has severe headache and has been having low blood pressure. She followed up with career guidance counselor a week ago and he recommended to stop taking diltiazem due to soft blood pressure and continue taking amiodarone and Lasix. Labs showed iron level, thyroid functions and A1c within normal limits. He was recommended to hold on Lasix for a week and prefer oral hydration with restarting Lasix on December 30 as every other day due to currently dehydrated clinical volume status. Patient reported to have improvement in her tingling and numbness with Lyrica and continued to had muscle soreness therefore, B12 and CMP were ordered. Her blood pressure was soft during this visit. Will follow-up with the labs. Patient was also complaining of pain in her knees therefore referral was given for physical therapy at least 3 times a week for 8 weeks and orthopedics referral for evaluation and possible another intra-articular steroid injection. Follow-up in a week. Review of Systems Review of Systems Systems Reviewed: All systems reviewed, normal except as documented Objective/Exam Narrative Physical exam: General: Pt is not in acute distress, answering questions appropriately, making appropriate eye contact. Saturating well on room air. HEENT: Normocephalic, atraumatic, EOMI, PERRLA, dry mucous membrane Cardiac: irregular rate and rhythm, normal S1/S2, systolic murmur grade 3 more on apex. Soft blood pressure Lungs: Bilateral clear breath sounds heard on auscultation. No wheezing heard. Abdomen: Soft, nontender, nondistended, positive bowel sounds in all quadrants. No guarding or rebound tenderness. Neurology:Alert and oriented x 3. Cranial nerves II to XII intact and patient able to move all 4 extremities. Extremities: Normal to inspection, no edema, no cyanosis, strong peripheral pulses. Psych: appropriate mood and affect. Assessment & Plan Diagnosis / Problem List (1) Osteoarthritis of knee: Status: Acute Qualifiers: Laterality: bilateral Osteoarthritis type: other secondary Qualified Code(s): M17.4 - Other bilateral secondary osteoarthritis of knee Assessment & Plan: ? Patient reported to have pain in both knees from past couple of weeks. She has received intra-articular steroid injection by Dr. Lai, orthopedics few months ago. ?Iron level, thyroid function and A1c within normal limits Plan: ? Physical therapy referral given 3 times a week for 8 weeks ? Referral given to orthopedics, Dr. Lai for further evaluation ? Recommended to use cane to avoid fall ? Follow-up with CMP and B12 levels ?Mica-vit and Lyrica to be continued (2) Hypotension: Status: Acute Qualifiers: Hypotension type: hypotension due to drug Qualified Code(s): I95.2 - Hypotension due to drugs Assessment & Plan: ? Patient has been having low blood pressure and followed up with career guidance counselor as a week ago ? Blood pressure was 99/52 during this visit ? Patient was symptomatic and complaining of dizziness and severe headache. She has been taking ibuprofen for headache. Plan: ? Recommended to take Excedrin as headache was more like migraine ? Recommended to avoid NSAIDs due to concern for NEHA ? Recommended to hold Lasix for a week hydrate and restart Lasix on December 30 every other day as patient appears clinically dehydrated ? Follow-up with CMP ?Diltiazem was discontinued by career guidance counselor, Dr. Posadas due to soft blood pressure ?Recommended to continue rest of the medications -- Patient was seen and discussed with attending physician, Dr.Watanakunakorn Dr. Martha MD, PGY 2 Orders: Orders Vitamin B12 12/23/24 Comprehensive Metabolic Panel 12/23/24 Referrals Orthopedics M17.9 - Osteoarthritis of knee, unspecified Physical Therapy - Referral M17.9 - Osteoarthritis of knee, unspecified Additional Assessment Internal Medicine Attending Note: Case discussed with and agree with note and management plan of Resident Physician as per Resident's Note above. Issues of concern for present visit are as follows: 3-week follow-up visit. Patient seen by cardiology week prior. History of severe pulmonary hypertension, mitral valve repair, symptomatic atrial fibrillation, history of unsuccessful ablation. Diltiazem discontinued. Remains on amiodarone and Lasix. Lasix also held for 1 week, and to be every other day on resumption. Patient encouraged to hydrate. Iron studies, thyroid function, and hemoglobin A1c within normal limits. Patient has some improvement in tingling and numbness with Lyrica. Noting bilateral knee pain, referred to physical therapy as well as orthopedic referral for evaluation, possible injections (patient on warfarin). Edgar Richardson MD Advanced Care Planning Advance care planning discussed with:: patient Physician Billing Established Patient Established Patient: E/M Level 3-CPT 69595 Office Procedures [facility] Level of Care Nursing/Assessment Patient Status: Established Patient Nursing Assessment/Reassessment: Medication Reconciliation, Update PMH in EMR and Vital Signs Coordination of Care: Complex Care and Chronic Disease 1-5, Consent,records obtained, informed consent, Education Simp Pt/Fam, Results/Orders obtained and Staff clarify orders Established Patient Charge Established Patient Point Assignment: 90 Established Patient Point Charge: EP Level 3 (80-115)
== END 2024-12-23 14:20 | disposition home or self-care (01) ==
LOC: HODAHC 13:38
PROVIDERS: PCP Student in an Organized Health Care Education/Training Program; Referring Provider Student in an Organized Health Care Education/Training Program; Supervising Provider Student in an Organized Health Care Education/Training Program; Visit Provider Student in an Organized Health Care Education/Training Program
DX: I95.9 Hypotension, unspecified (principal); M17.0 Bilateral primary osteoarthritis of knee; R20.2 Paresthesia of skin; R20.0 Anesthesia of skin; I48.91 Unspecified atrial fibrillation; R68.2 Dry mouth, unspecified
CPT/HCPCS: 99213; G0463

== ENCOUNTER → 2024-12-23 | Outpatient (CLI) | payer MEDICARE, SELFPAY ==
[2024-12-23 15:47] LABS: Alanine Aminotransferase 19 U/L (10-49); Albumin, Serum 3.8 gm/dL (3.4-4.8); Albumin/Globulin Ratio 1.4 (1.2-2.2); Alkaline Phosphatase 86 U/L (46-116); Anion Gap 7 (7-16); Aspartate Amino Transferase 37 U/L (0-34); BUN/Creatinine Ratio 13 Ratio (12-20); Bilirubin,Total 0.5 mg/dL (0.3-1.2); Blood Urea Nitrogen 23 mg/dL (9-23); Calcium 9.2 mg/dL (8.3-10.6); Calcium (Corrected) 9.4 mg/dL (8.5-10.1); Chloride 108 mMol/L (98-107); Creatinine (Component) 1.8 mg/dL (0.6-1.3); Globulin 2.8 gm/dL (2.3-3.5); Glucose 107 mg/dL (74-106); Osmolality,Calculated 288 (275-295); Potassium 4.4 mMol/L (3.4-5.1); Sodium 143 mMol/L (136-145); Total Protein 6.6 gm/dL (5.7-8.2); eGFR 30 See Note
[2024-12-23 15:50] LABS: Vitamin B12 336 pg/mL (211-911)
== END | disposition home or self-care (01) ==
PROVIDERS: PCP Student in an Organized Health Care Education/Training Program; Referring Provider Student in an Organized Health Care Education/Training Program; Visit Provider Student in an Organized Health Care Education/Training Program
DX: I95.9 Hypotension, unspecified (principal)
CPT/HCPCS: 36415; 80053; 82607

== ENCOUNTER 2024-12-30 14:55 | Outpatient (AMB) | payer MEDICARE, SELFPAY ==
[2024-12-30 15:06] VITALS: BP 86/56; PULSE 95; RESP 18; TEMP 36.8; O2SAT 95; BMI 25.0
--- NOTE | 2024-12-30 15:06 | PD.RESCLINIC ---
Vital Signs 12/30/24 15:06 Height 1.63 m Height Method Stated Weight 66.338 kg Weight Measurement Method Standing Scale BMI 25.0 BP 86/56 L Blood Pressure Source Automatic Cuff Blood Pressure Location Left Upper Arm Position Sitting Respiration 18 Pulse 95 Pulse Source Monitor Temp 98.2 F Temp Source Oral Pulse Oximetry (%) 95 Oxygen Delivery Method Room Air Allergies/Meds Allergies & Medications Allergies banana Allergy (Verified 12/30/24 15:07) heparin Allergy (Verified 12/30/24 15:07) rice Allergy (Verified 12/30/24 15:07) Medication Reconciliation meclizine 25 mg tablet 25 mg PO TID 11/19/23 [History Confirmed 12/30/24] melatonin 3 mg tablet 3 mg PO HS 11/19/23 [History Confirmed 12/30/24] umeclidinium 62.5 mcg-vilanterol 25 mcg/actuation powdr for inhalation (Anoro Ellipta) 1 inh inhalation QDAY PRN Dizziness Or Vertigo 11/19/23 [History Confirmed 12/30/24] albuterol 90 mcg/actuation aerosol inhaler 180 mcg inhalation Q4HR PRN sob 11/30/23 [History Confirmed 12/30/24] fluticasone propionate 110 mcg/actuation HFA aerosol inhaler 1 puff inhalation BID wheezing #12 grams 02/08/24 [Rx Confirmed 12/30/24] warfarin 5 mg tablet 5 mg PO QDAY@1200 Atrial Fibrillation #90 tabs 04/22/24 [Rx Confirmed 12/30/24] guaifenesin 100 mg/5 mL oral liquid 200 mg (10 mL) PO Q4H PRN congestion #473 mL 07/08/24 [Rx Confirmed 12/30/24] nicotine 7 mg/24 hr daily transdermal patch 1 patch transdermal Q24H #14 ea 11/04/24 [Rx Confirmed 12/30/24] amiodarone 100 mg tablet 100 mg PO BID 3 months #180 tabs 12/02/24 [Rx Confirmed 12/30/24] calcitriol 0.25 mcg capsule 0.25 mcg PO QDAY Chronic kidney Disease #90 caps 12/02/24 [Rx Confirmed 12/30/24] pantoprazole 40 mg tablet,delayed release 40 mg PO QDAY 1 month #60 tabs 12/02/24 [Rx Confirmed 12/30/24] pravastatin 40 mg tablet 40 mg PO QHS #90 tabs 12/02/24 [Rx Confirmed 12/30/24] pregabalin 25 mg capsule (Lyrica) 25 mg PO QHS #30 caps 12/02/24 [Rx Confirmed 12/30/24] cyanocobalamin (vitamin B-12) 1,000 mcg/mL injection solution 1,000 mcg IM QWEEK 4 weeks #4 mL 12/23/24 [Rx Confirmed 12/30/24] furosemide 20 mg tablet 20 mg PO Q OTHER DAY #60 tabs 12/23/24 [Rx Confirmed 12/30/24] vitamin B complex-vitamin C-folic acid 0.8 mg tablet (Mica-Mary) 1 tab PO QDAY #90 tabs 12/23/24 [Rx Confirmed 12/30/24] benzonatate 100 mg capsule 100 mg PO BID PRN cough #30 caps 12/30/24 [Rx] MA Intake Visit Data Collection New Patient or Established: Established Patient (seen at [facility] within 3 years) Pain Present Currently: Yes Pain scale:: 8 Pain Scale Used: [employer]/Numerical Stage Manager Required: No PCP or OBGYN visit in last 3 months: Yes Hx Now: No Do You Feel Safe at Home: Yes Authorities Contacted: N/A Smoking Status Smoking Status: Current some day smoker Cessation Counseling Provided: LUZ ELENA was advised that quitting smoking is the single most important factor to protect the health of themselves and their family. Discussed the benefits of quitting smoking with patient. Encouraged patient to quit smoking and provided Cessation assistance materials and resources. Tobacco Use: Cigarette Years smoked: 20 Are you interested in quitting?: No Immunization / Flu Flu Vaccine in the Last 12 Months: No Flu Vaccine Exclusion Criteria: No Exclusion Criteria Past Medical History Past Medical History NEUROLOGIC: Positive Cerebrovascular Accident CARDIAC: Positive Atrial Fibrillation and Congestive Heart Failure RESPIRATORY: Positive Chronic Obstructive Pulmonary Disease (COPD), Smoking and Smoking Exposure; Negative Smoking Cessation Counseling or Clubbing GASTROINTESTINAL: Positive Gastroesophageal Reflux Disease and Obesity (gastric bypass) GENITOURINARY: Positive Renal Disease MUSCULOSKELETAL: Positive Arthritis ENT: Positive Cataracts ENDOCRINE: Positive Diabetes Mellitus Type 2; Negative Diabetes Mellitus Type 1 HEMATOLOGIC: Positive Anemia Social History SMOKING STATUS: Smoking status: Current some day smoker ALCOHOL: Alcohol Intake: Current ALCOHOL FREQUENCY: Alcohol Intake Frequency: holidays/special occasions only HOUSING: Housing: mobile home LIVES WITH: Lives With: Spouse Patient Portal Questionaires PHQ-9 PHQ-2 Over the last 2 weeks, how often have you been bothered by any of the following problems? 1. Little interest or pleasure in doing things: not at all 2. Feeling down, depressed, or hopeless: not at all Total score: 0 PHQ-9 3. Trouble falling or staying asleep, or sleeping too much: Not at all 4. Feeling tired or having little energy: Not at all 5. Poor appetite or overeating: Not at all 6. Feeling bad about yourself - or that you are a failure or have let yourself or your family down: Not at all 7. Trouble concentrating on things, such as reading the newspaper or watching television: Not at all 8. Moving or speaking so slowly that other people could have noticed? - Or the opposite - being so fidgety or restless that you have been moving around a lot more than usual: not at all 9. Thoughts that you would be better off or of hurting yourself in some way: Not at all Total score: 0 If you checked off any problems, how difficult have these problems made it for you to do your work, take care of things at home, or get along with other people?: not difficult at all Source: Developed by Drs. Jose Bolivar, Charlene Casillas, Hussein Sherwood and colleagues, with an educational yousuf from [employer]. Depression screen completed yes Social History Living Situation History Housing: mobile home Housing Other:: pt lives with Tobacco History Smoking Status: Current some day smoker Alcohol History Alcohol Intake: Current Alcohol Intake Frequency: holidays/special occasions only Domestic Abuse History Do You Feel Safe at Home: Yes Review of Systems Report any current symptoms Only answer those that you have currently: Past Medical History Past Medical History Have you ever been diagnosed with any of the following: Neurological Problems Cerebrovascular Accident (CVA): Yes Cardiology Problems Atrial Fibrillation: Yes Congestive Heart Failure: Yes Respiratory Problems Chronic Obstructive Pulmonary Disease (COPD): Yes Smoking: Yes Smoking Cessation Counseling: No Smoking Exposure: Yes Clubbing: No Stomache/Intestinal Problems Gastroesophageal Reflux Disease: Yes Obesity: Yes (gastric bypass) Genital/Urinary Problems Renal Disease: Yes Musculoskeletal Problems Arthritis: Yes Head,Eye,Nose,Throat Problems Cataracts: Yes Endocrine Problems Diabetes Mellitus Type 1: No Diabetes Mellitus Type 2: Yes Blood Problems Anemia: Yes History of Present Illness HPI Narrative This 68-year-old female patient with past medical history for A-fib on amiodarone and warfarin, CKD III, COPD not on home oxygen, 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 She was managed for acute COPD exacerbation and atrial fibrilation in the hospital. Patient had problem with insurance coverage hence she was switched from eliquis to warfarin and was started on amiodarone after cardio consult for atrial fibrillation. Patient follows up with Dr Gaines, her outpatient certified court interpreter. Patient reported that she feels improvement in her shortness of breath and only feels shortness of breath when she ambulates. Denies any other active concerns. She ran out from her amiodarone and was not taking them and needed refill for the medications. She continues to have irregular rhythm and feels palpitations. Plan was discussed with the patient that she would need INR testing in the lab today. Lab was called that patient's results will be required to be notified at Dr Gaines office once resulted. She was referred to Assistant Import Manager, Dr Palmer for management of COPD. She was given refills for her medication amiodarone and albuterol inhaler. She was explained that she will need to get INR weekly or get an INR kit from cardiology clinic as warfarin is regulated with INR. She agreed to the plan and was reassured. 12/28/23: Patient was seen at the office today. Patients recent INR is 2.1 which is in therapeutic range. Patient has seen Dr Gaines and he plans to do cardioversion on January 02. She has appointment due in january with her Assistant Import Manager. She had a concern for pain in her both knee joints more severe while walking. we ordered bilateral Knee XR to look for any pathology.She was advised to take Tylenolol 650 mg upto 3 times a day only for severe pain and stop taking aspirin due to interaction with warfarin. She will recieve an INR kit tomorrow and will follow up with Dr Gaines. She is currently taking warfarin 5 mg qday. She was advised to stop torsemide due to soft blood pressure and jardiance as her recent A1c was 5.3 and blood sugars were slightly above normal during hospital stay.We referred her to Dr Alves, Loom Fixer Supervisor for her chronic kidney disease. We will follow on XR knee results.We will continue with rest of the management. 01/18/24: Patient was seen today in office. Patient was very teary and upset due to persistent symptoms of chest pain and shortness of breath. She reported having persistent palpitations and was concerned regarding her follow up with certified court interpreter. Per Patient's wishes, we switched her Industrial Chemistry Teacher, Dr Posadas. I personally spoke to Dr Posadas to have a second opinion for ablation on phone call. He agreed to have a second opinion however due to her severe pulmonary hypertension and mitral valve repair certified court interpreter suggested that shes not a candidate for ablation but he will follow up for symptomatic Atrial fib management Of note,Previously, she had a unsuccessful ablation per chart. Therefore , cardiology rec currently to increase her Diltiazem to 60 mg three times a day and continue with amiodarone 100 mg two times a day. Rest of the management will remain the same. She was advise to follow up with certified court interpreter, investor relations coordinator & Orthopedics after scheduling her appt. She was advised to do her INR levels weekly in our [facility] and I will follow up until she sees certified court interpreter. She had C/O severe bilateral knee , she has osteoarthritis B/L per XR knee. Per ortho, patient needs to have XR 4V B/L knee weight bearing as well. She was given norco 5/325 only 14 tabs for her severe knee pain. Advised her to follow up after four weeks. 02/08/2024: Patient was seen today at the office visit for follow-up. Patient seem to be asymptomatic and really pleasant and satisfied with her new certified court interpreter, Dr. Sherrie Posadas. She reported that she had less frequent episodes of palpitations and shortness of breath. Per cardiology, her Cardizem dose was changed to 60 mg twice daily 2 capsules at morning and night. Patient also visited air conditioning installer recommended to continue her inhalers albuterol, fluticasone inhalers. She also visited investor relations coordinator, Dr Alves. She has microalbuminuria. Labs showed normocytic anemia and kidney functions 30% with creatinine 1.8. We added losartan 25 mg for proteinuria. Medications were refilled. Patient has history of old CVA with ataxia there for she was advised to follow-up with her physical therapy outpatient. Patient reported having regurgitation with retrosternal burning therefore referral was made with law clerk, Dr. Mckeon. She received corticosteroids injections intra-articular last week feels significantly improved when she visited Dr. Lai, orthopedics. 07/01/2024: Patient was seen in the [facility] today. Patient reported to have cough from last 2 weeks associated with white phlegm which is present only when she goes to bed for sleeping. She is actively smoking cigarette 6 cigarettes every day and trying to cut back on that. Patient denied any fever any chills, chest pain, any other signs of infection. She did not had swelling in her lower extremities. She was taking her home medications with compliance. Patient was advised to follow-up next week with new orders chest x-ray, BMP, BNP and was given prescription of prednisone 5 mg for 7 days for possible concern for component of bronchospasm and the underlying setting of COPD as culprit for her productive cough. Examination was significant for cough elicited on prolonged expiration. Patient was advised to continue her home medications as prescribed and will likely be follow-up next week with lab results. 07/08/24: Pt came for follow up for labs and she showed improvement in her SOB after steroids course and albuterol inhaler in combination with other inhaler. Still compliants of having orhtopnea. Chest x-ray showed B/L edema and mod vasc congestion. BNP 115 and Kidney functions showing Cr 1.8 Electrolyes unremarkable.Patient was advised to take lasix extra dose half pill once in a week to get rid of extra fluids if SBP above 120 and DBP above 80 so taking 60 mg lasix once every week.Will be given referral for Oncology Social Work for eye examination due to haziness in right eye. 11/04/2024: Patient was seen and examined in the clinic today. Patient has been doing well and did not had any active concerns. She has been feeling very good and has been exercising every day. Examination showed improvement in bilateral air entry and no wheezing was heard. Patient wanted to have a prescription refill for amiodarone, diltiazem, atorvastatin and patient wished to change pharmacy to [facility]. Patient also wanted to have follow-up with glass ribbon machine operator assistant for eye checkup, GI follow-up for GERD and CARBONIZER follow-up for breast examination. Referrals were given. Patient was advised to make an appointment with respective referrals. Medications were reviewed. Patient is getting her labs/blood work by investor relations coordinator, Dr Alves next month. Of note, patient's Lasix dose was reduced to 20 mg once daily by investor relations coordinator. 12/02/2024: Patient was seen and examined in the clinic. Patient reported extreme fatigability and burning sensation with numbness and tingling in both lower extremities. She reported that she had an episode of presyncope last week during her wedding. Examination showed no lower extremity edema or wheezing. She was having tachycardia irregularly irregular. She wanted to have prescription for her medications which was given. She was also complaining of muscle soreness and feeling tired. She also reported to have cold intolerance despite warm temperature outside.Plan is to order thyroid function test, iron panel and A1c as all the tests were performed last year. Additionally, atorvastatin was discontinued and pravastatin 40 mg was started given less risk of muscle weakness as compared to atorvastatin. Her blood pressure was really soft and was recommended to take Lasix every other day and follow-up with cardiology in a week. Follow-up in a week in clinic. 12/23/24: Patient was seen and examined in the clinic today. She reported to have fatigability and generalized weakness with dryness of the mouth and dizziness. Patient reported that she has severe headache and has been having low blood pressure. She followed up with certified court interpreter a week ago and he recommended to stop taking diltiazem due to soft blood pressure and continue taking amiodarone and Lasix. Labs showed iron level, thyroid functions and A1c within normal limits. He was recommended to hold on Lasix for a week and prefer oral hydration with restarting Lasix on December 30 as every other day due to currently dehydrated clinical volume status. Patient reported to have improvement in her tingling and numbness with Lyrica and continued to had muscle soreness therefore, B12 and CMP were ordered. Her blood pressure was soft during this visit. Will follow-up with the labs. Patient was also complaining of pain in her knees therefore referral was given for physical therapy at least 3 times a week for 8 weeks and orthopedics referral for evaluation and possible another intra-articular steroid injection. Follow-up in a week. 12/30/24: Patient was seen and examined in the clinic with her today. She came for follow-up of her labs. She also reported to have symptoms of flu with cough associated with phlegm from past 3 days. She reported to have mild chills as well. She has been taking [id number] flu medication. Patient continued to have low blood pressure and appeared dehydrated. Labs were significant for B12 330. CHEM panel was significant for NEHA on CKD with creatinine 1.8 with GFR 31%. Thyroid function and A1c within normal limits. Patient was recommended to hold off on Lasix and follow-up with investor relations coordinator, Dr Alves within a week. She was prescribed with Augmentin 500 mg twice daily renally dose for 5 days for RTI. She reported to have improvement in her numbness and tingling sensation after Lyrica use. IM B12 shot was given and will be continued once every week. Patient is currently waiting for referral for PT and Ortho for knee pain. Review of Systems Review of Systems Systems Reviewed: All systems reviewed, normal except as documented Objective/Exam Narrative Physical exam: General: Pt is not in acute distress, answering questions appropriately, making appropriate eye contact. Saturating well on room air. HEENT: Normocephalic, atraumatic, EOMI, PERRLA, dry mucous membrane Cardiac: irregular rate and rhythm, normal S1/S2, systolic murmur grade 3 more on apex. Soft blood pressure Lungs: Bilateral clear breath sounds heard on auscultation. No wheezing heard. Abdomen: Soft, nontender, nondistended, positive bowel sounds in all quadrants. No guarding or rebound tenderness. Neurology:Alert and oriented x 3. Cranial nerves II to XII intact and patient able to move all 4 extremities. Extremities: Normal to inspection, no edema, no cyanosis, strong peripheral pulses. Psych: appropriate mood and affect. Assessment & Plan Diagnosis / Problem List (1) RTI (respiratory tract infection): Status: Acute Assessment & Plan: ? Patient was having cough with phlegm white in color however was not short of breath x 3 days ago. ? She has been taking [id number] flu medication to help with the symptoms. Plan: ? Augmentin 500 mg twice a day renally dose was given for 5 days ?Benzonatate cough syrup as needed twice daily (2) Hypotension: Status: Acute Qualifiers: Hypotension type: hypotension due to drug Qualified Code(s): I95.2 - Hypotension due to drugs Assessment & Plan: ? Patient continued to have low blood pressure. ? Examination showed no lower extremity edema and dry mucous membrane. Breath sounds were clear to auscultation. Plan: ? Recommended to hold Lasix and continue hydration ?Follow-up with investor relations coordinator within a week (3) CKD (chronic kidney disease) stage 3, GFR 30-59 ml/min: Status: Acute Assessment & Plan: ? Patient was found to have NEHA on CKD stage III with creatinine 1.8 and GFR 31% ? Patient follows up with investor relations coordinator, Dr Alves Plan: ? Recommended to follow-up with investor relations coordinator within a week ? Continue holding Lasix ? Hydration ? Avoid nephrotoxic agents and NSAIDs (4) Vitamin B12 deficiency: Status: Acute Assessment & Plan: ? Patient's B12 level was 332. -Thyroid and iron levels were normal Plan: ? Recommended to receive IM B12 injection 1000 mcg once every week for a month ?Patient received first dose of B12 shot today, 12/30 Patient was discussed with attending physician, Dr. Debra Thomas MD, PGY 2 Additional Assessment Internal Medicine Attending Note: Case discussed with and agree with note and management plan of Resident Physician as per Resident's Note above. Issues of concern for present visit are as follows: Follow-up visit for review of labs. Note mild worsening in renal numbers with creatinine 1.8 with GFR of 31%. May be a little dry, we will hold Lasix and have patient follow-up with nephrology within the week. B12 level of 330. Intramuscular B12 injection administered using patient's own medication. Reporting influenza symptoms, cough associated with phlegm, chills, aches, cough productive of phlegm. Empiric treatment with Augmentin along with expectorant given today. Edgar Richardson MD Advanced Care Planning Advance care planning discussed with:: patient Physician Billing Established Patient Established Patient: E/M Level 3-CPT 74743 Office Procedures [facility] Level of Care Nursing/Assessment Patient Status: Established Patient Nursing Assessment/Reassessment: BP Monitoring, Medication Reconciliation, Update PMH in EMR and Vital Signs Coordination of Care: Complex Care and Chronic Disease 1-5, Consent,records obtained, informed consent, Education Simp Pt/Fam, Lab and Imaging orders and Staff clarify orders Established Patient Charge Established Patient Point Assignment: 115 Established Patient Point Charge: EP Level 3 (80-115)
== END 2024-12-30 16:09 | disposition home or self-care (01) ==
LOC: HODAHC 14:55
PROVIDERS: PCP Student in an Organized Health Care Education/Training Program; Referring Provider Student in an Organized Health Care Education/Training Program; Supervising Provider Student in an Organized Health Care Education/Training Program; Visit Provider Student in an Organized Health Care Education/Training Program
DX: J98.8 Other specified respiratory disorders (principal); I95.9 Hypotension, unspecified; N17.9 Acute kidney failure, unspecified; N18.30 Chronic kidney disease, stage 3 unspecified; E53.8 Deficiency of other specified B group vitamins
CPT/HCPCS: 99213; G0463

== ENCOUNTER 2025-01-23 09:55 | Outpatient (AMB) | payer MEDICARE, SELFPAY ==
--- NOTE | 2025-01-23 10:31 | ORTHONT_ITS ---
Vital signs 01/23/25 10:32 Height 1.63 m Height Method Stated Weight 67.33 kg Weight Measurement Method Standing Scale BMI 25.3 BP 104/69 Blood Pressure Source Automatic Cuff Blood Pressure Location Left Upper Arm Position Sitting Respiration 19 Pulse 94 Pulse Source Monitor Temp 97.3 F Temp Source Temporal Artery Scan Pulse Oximetry (%) 92 L Oxygen Delivery Method Room Air Med/Allergies Allergies & Medications Allergies banana Allergy (Verified 01/23/25 10:33) heparin Allergy (Verified 01/23/25 10:33) rice Allergy (Verified 01/23/25 10:33) Medication Reconciliation meclizine 25 mg tablet 25 mg PO TID 11/19/23 [History Confirmed 01/23/25] melatonin 3 mg tablet 3 mg PO HS 11/19/23 [History Confirmed 01/23/25] umeclidinium 62.5 mcg-vilanterol 25 mcg/actuation powdr for inhalation (Anoro Ellipta) 1 inh inhalation QDAY PRN Dizziness Or Vertigo 11/19/23 [History Confirmed 01/23/25] albuterol 90 mcg/actuation aerosol inhaler 180 mcg inhalation Q4HR PRN sob 11/30/23 [History Confirmed 01/23/25] fluticasone propionate 110 mcg/actuation HFA aerosol inhaler 1 puff inhalation BID wheezing #12 grams 02/08/24 [Rx Confirmed 01/23/25] warfarin 5 mg tablet 5 mg PO QDAY@1200 Atrial Fibrillation #90 tabs 04/22/24 [Rx Confirmed 01/23/25] guaifenesin 100 mg/5 mL oral liquid 200 mg (10 mL) PO Q4H PRN congestion #473 mL 07/08/24 [Rx Confirmed 01/23/25] nicotine 7 mg/24 hr daily transdermal patch 1 patch transdermal Q24H #14 ea 11/04/24 [Rx Confirmed 01/23/25] amiodarone 100 mg tablet 100 mg PO BID 3 months #180 tabs 12/02/24 [Rx Confirmed 01/23/25] calcitriol 0.25 mcg capsule 0.25 mcg PO QDAY Chronic kidney Disease #90 caps 12/02/24 [Rx Confirmed 01/23/25] pantoprazole 40 mg tablet,delayed release 40 mg PO QDAY 1 month #60 tabs 12/02/24 [Rx Confirmed 01/23/25] pravastatin 40 mg tablet 40 mg PO QHS #90 tabs 12/02/24 [Rx Confirmed 01/23/25] pregabalin 25 mg capsule (Lyrica) 25 mg PO QHS #30 caps 12/02/24 [Rx Confirmed 01/23/25] furosemide 20 mg tablet 20 mg PO Q OTHER DAY #60 tabs 12/23/24 [Rx Confirmed 01/23/25] vitamin B complex-vitamin C-folic acid 0.8 mg tablet (Mica-Mary) 1 tab PO QDAY #90 tabs 12/23/24 [Rx Confirmed 01/23/25] benzonatate 100 mg capsule 100 mg PO BID PRN cough #30 caps 12/30/24 [Rx Confirmed 01/23/25] meloxicam 7.5 mg tablet 7.5 mg PO QDAY #45 tabs 01/23/25 [Rx] Exam Exam Patient is in no acute distress and is cooperative with the examination today. Breathing is nonlabored. In no respiratory distress. Bilateral extremities were evaluated and demonstrates sensation intact to light touch. Palpable pedal pulses are present. No significant edema is present. Bilateral hips were examined. The patient has no pain with log roll of the hips. Internal rotation to 30 degrees and external rotation to 30 degrees is painless. Negative FADIR. The left knee was examined. The left knee is in [varus] alignment. Range of motion from [0-115] degrees. Knee is stable to varus and valgus as well as AP translation with <5mm. Patient has a [negative] Mc[place]rays. There is [no] pain with patellofemoral compression and [no] crepitus noted. The knee is [tender] to palpation [medially]. The right knee was also examined. The right knee is in [varus] alignment. Range of motion from [0-120] degrees. Knee is stable to varus and valgus as well as AP translation with <5mm. Patient has a [negative] Mc[place]rays. There is [no] pain with patellofemoral compression and [no] crepitus noted. The knee is [tender] to palpation [medially]. X-rays were reviewed by me today. This demonstrates medial joint space narrowing of moderate severity as well as osteophytes. Assessment and Plan Problem List (1) Osteoarthritis of knee: Qualifiers: Laterality: bilateral Osteoarthritis type: other secondary Qualified Code(s): M17.4 - Other bilateral secondary osteoarthritis of knee Status: Acute Plan: Patient is a 68-year-old female with bilateral knee osteoarthritis of moderate severity. She does have a valve. She is on chronic anticoagulation. We discussed nonoperative options as she has not tried much. We discussed Tylenol as well as injections of cortisone. Recommend knee cortisone injections as patient would like to proceed with conservative treatment at this time. The risks and benefits of the procedure were reviewed with the patient and patient gave verbal consent to continue with the procedure. Procedure: performed by Dr. Lai Using sterile technique the Bilateral knees were thoroughly prepped with alcohol, and approximately 1 cc of Kenalog 40 mg/mL and 4 cc of 1% lidocaine was injected into each knee without resistance into the medial tibial femoral joint space. The patient tolerated the procedure. (2) Osteoarthritis (arthritis due to wear and tear of joints): Status: Acute (3) Knee pain, bilateral: Status: Acute Advanced Care Planning Discussion Advance care planning discussed with:: patient Office Procedures GNS Level of Care Nursing/Assessment Patient Status: Established Patient Nursing Assessment/Reassesment: Medication Reconciliation, Update PMH in EMR and Vital Signs Coordination of Care: Complex Care and Chronic Disease 1-5, Education Complex Pt/Fam, Consent,records obtained, informed consent, Results/Orders obtained and Staff clarify orders Established Patient Charge Established Patient Point Assignment: 95 Established Patient Point Charge: EP Level 3 (80-115) Surgical Proc/IM SQ injection Major Surgical Procedure: Yes (BILATERAL KNEE INJECTION) Medication Given Medication Given Medication Given: Yes Documented Dose Given: 8 Route: Infiitration Medication Given Medication Given Medication Given: Yes Documented Dose Given: 2 Route: Infiitration Office Meds Xylocaine 10 mg/mL (1 %) injection solution Performing Provider: Rohit Lai MD Performing Location: [facility] Administered by: Rohit Lai MD on 01/23/25 10:50 Dose Route Admin Location Dispensed Lot Number Expiration Date [facility] [place] [employer] 40 mL Infiltration 40 mL [id number] FRES[employer] S KA triamcinolone acetonide 40 mg/mL suspension for injection Performing Provider: Rohit Lai MD Performing Location: [facility] Administered by: Rohit Lai MD on 01/23/25 10:50 Dose Route Admin Location Dispensed Lot Number Expiration Date [facility] [place] [employer] 80 mg intra-articular 2 mL [id number] TEV A [employer]ENTER[employer] MA Intake Visit Data Collection New Patient or Established: Established Patient (seen at [facility] within 3 years) Reason for Visit:: BL KNEE INJ FOLLOW UP Seen by Clinical Staff ONLY (RN/MA): No PCP or OBGYN visit in last 3 months: Yes Hx Now: No Do You Feel Safe at Home: Yes Authorities Contacted: N/A Questionairres Past Medical History Past Medical History Have you ever been diagnosed with any of the following: Neurological Problems Cerebrovascular Accident (CVA): Yes Cardiology Problems Atrial Fibrillation: Yes Congestive Heart Failure: Yes Respiratory Problems Chronic Obstructive Pulmonary Disease (COPD): Yes Smoking: Yes Smoking Cessation Counseling: No Smoking Exposure: Yes Clubbing: No Stomache/Intestinal Problems Gastroesophageal Reflux Disease: Yes Obesity: Yes (gastric bypass) Genital/Urinary Problems Renal Disease: Yes Musculoskeletal Problems Arthritis: Yes Head,Eye,Nose,Throat Problems Cataracts: Yes Endocrine Problems Diabetes Mellitus Type 1: No Diabetes Mellitus Type 2: Yes Blood Problems Anemia: Yes Subjective Visit Visit for: follow up visit, knee and injections Immunization / Flu Flu Vaccine in the Last 12 Months: No Flu Vaccine Exclusion Criteria: No Exclusion Criteria History of Present Illness Chief complaint: bl knee pain Tessie is a pleasant 69-year-old female with bilateral knee pain. We have treated her conservatively with injections in the past. She does have patella tendinitis as well. She would like repeat cortisone injections as the last ones have lasted for more than 8 months Pain Pain level (0-10): 6 Pain duration: ON AND OFF Pain location: inside (medial) and anterior Pain quality: dull and aching Pain timing: increases with activity Ambulatory data Ambulatory device: none Treatments Number of previous injections: 2 Improvement with previous injections: Yes Improvement with PT: No Improvement with NSAIDS: no Review of Systems Review of Systems: All systems negative unless otherwise noted in HPI.
[2025-01-23 10:32] VITALS: BP 104/69; PULSE 94; RESP 19; TEMP 36.3; O2SAT 92; BMI 25.3
== END 2025-01-23 10:48 | disposition home or self-care (01) ==
LOC: HODSRG 09:55
PROVIDERS: PCP Student in an Organized Health Care Education/Training Program; Referring Provider Student in an Organized Health Care Education/Training Program; Supervising Provider Orthopaedic Surgery Adult Reconstructive Orthopaedic Surgery; Visit Provider Orthopaedic Surgery Adult Reconstructive Orthopaedic Surgery
DX: M17.0 Bilateral primary osteoarthritis of knee (principal); M25.561 Pain in right knee; M25.562 Pain in left knee; I48.91 Unspecified atrial fibrillation; I50.9 Heart failure, unspecified; E11.9 Type 2 diabetes mellitus without complications; J44.9 Chronic obstructive pulmonary disease, unspecified; Z86.73 Personal history of transient ischemic attack (TIA), and cerebral infarction without residual deficits
CPT/HCPCS: 20610; 99213; J3301; J3490; G0463

== ENCOUNTER 2025-02-10 13:14 | Outpatient (AMB) | payer MEDICARE, SELFPAY ==
--- NOTE | 2025-02-10 13:33 | ACNOTE_ITS ---
Vital Signs 02/10/25 13:34 Height 1.63 m Height Method Stated Weight 63.673 kg Weight Measurement Method Standing Scale BMI 23.9 BP 108/69 Blood Pressure Source Automatic Cuff Blood Pressure Location Right Upper Arm Position Sitting Respiration 17 Pulse 94 Pulse Source Monitor Temp 96.9 F Temp Source Temporal Artery Scan Pulse Oximetry (%) 96 Oxygen Delivery Method Room Air Allergies/Meds Allergies & Medications Allergies banana Allergy (Verified 02/10/25 13:35) heparin Allergy (Verified 02/10/25 13:35) rice Allergy (Verified 02/10/25 13:35) Medication Reconciliation melatonin 3 mg tablet 3 mg PO HS 11/19/23 [History Confirmed 02/10/25] umeclidinium 62.5 mcg-vilanterol 25 mcg/actuation powdr for inhalation (Anoro Ellipta) 1 inh inhalation QDAY PRN Dizziness Or Vertigo 11/19/23 [History Confirmed 02/10/25] albuterol 90 mcg/actuation aerosol inhaler 180 mcg inhalation Q4HR PRN sob 11/30/23 [History Confirmed 02/10/25] fluticasone propionate 110 mcg/actuation HFA aerosol inhaler 1 puff inhalation BID wheezing #12 grams 02/08/24 [Rx Confirmed 02/10/25] warfarin 5 mg tablet 5 mg PO QDAY@1200 Atrial Fibrillation #90 tabs 04/22/24 [Rx Confirmed 02/10/25] nicotine 7 mg/24 hr daily transdermal patch 1 patch transdermal Q24H #14 ea 11/04/24 [Rx Confirmed 02/10/25] amiodarone 100 mg tablet 100 mg PO BID 3 months #180 tabs 12/02/24 [Rx Confirmed 02/10/25] pravastatin 40 mg tablet 40 mg PO QHS #90 tabs 12/02/24 [Rx Confirmed 02/10/25] pregabalin 25 mg capsule (Lyrica) 25 mg PO QHS #30 caps 12/02/24 [Rx Confirmed 02/10/25] furosemide 20 mg tablet 20 mg PO Q OTHER DAY #60 tabs 12/23/24 [Rx Confirmed 02/10/25] benzonatate 100 mg capsule 100 mg PO BID PRN cough #30 caps 12/30/24 [Rx Confirmed 02/10/25] meloxicam 7.5 mg tablet 7.5 mg PO QDAY #45 tabs 01/23/25 [Rx Confirmed 02/10/25] amiodarone 100 mg tablet 100 mg PO BID 3 months #180 tabs 02/03/25 [Rx Confirmed 02/10/25] calcitriol 0.25 mcg capsule 0.25 mcg PO QDAY Chronic kidney Disease #90 caps 02/03/25 [Rx Confirmed 02/10/25] cyanocobalamin (vitamin B-12) 1,000 mcg/mL injection solution 100 mcg (0.1 mL) IM QWEEK 4 weeks #0.4 mL 02/03/25 [Rx Confirmed 02/10/25] diltiazem HCl 240 mg capsule,24 hr,extended release 240 mg PO QDAY #30 caps 02/03/25 [Rx Confirmed 02/10/25] vitamin B complex-vitamin C-folic acid 0.8 mg tablet (Mica-Mary) 1 tab PO QDAY #90 tabs 02/03/25 [Rx Confirmed 02/10/25] MA Intake Visit Data Collection New Patient or Established: Established Patient (seen at [facility] within 3 years) Seen by Clinical Staff ONLY (RN/MA): No Reason for Visit:: FOLLOW UP Pain Present Currently: No Pain scale:: 0 Pain Scale Used: [employer]/Numerical PCP or OBGYN visit in last 3 months: Yes Date of Last PCP or OBGYN visit: 01/23/25 Hx Now: Yes Do You Feel Safe at Home: Yes Authorities Contacted: N/A Smoking Status Smoking Status: Current some day smoker Cessation Counseling Provided: LUZ ELENA was advised that quitting smoking is the single most important factor to protect the health of themselves and their family. Discussed the benefits of quitting smoking with patient. Encouraged patient to quit smoking and provided Cessation assistance materials and resources. Tobacco Use: Cigarette Years smoked: 20 Are you interested in quitting?: No Immunization / Flu Flu Vaccine in the Last 12 Months: Yes Flu Vaccine Exclusion Criteria: Already Received Past Medical History Past Medical History NEUROLOGIC: Positive Cerebrovascular Accident CARDIAC: Positive Atrial Fibrillation and Congestive Heart Failure RESPIRATORY: Positive Chronic Obstructive Pulmonary Disease (COPD), Smoking and Smoking Exposure; Negative Smoking Cessation Counseling or Clubbing GASTROINTESTINAL: Positive Gastroesophageal Reflux Disease and Obesity (gastric bypass) GENITOURINARY: Positive Renal Disease MUSCULOSKELETAL: Positive Arthritis ENT: Positive Cataracts ENDOCRINE: Positive Diabetes Mellitus Type 2; Negative Diabetes Mellitus Type 1 HEMATOLOGIC: Positive Anemia Social History SMOKING STATUS: Smoking status: Current some day smoker ALCOHOL: Alcohol Intake: Current ALCOHOL FREQUENCY: Alcohol Intake Frequency: holidays/special occasions only HOUSING: Housing: mobile home LIVES WITH: Lives With: Spouse Patient Portal Questionaires PHQ-9 PHQ-2 Over the last 2 weeks, how often have you been bothered by any of the following problems? 1. Little interest or pleasure in doing things: not at all 2. Feeling down, depressed, or hopeless: not at all Total score: 0 PHQ-9 3. Trouble falling or staying asleep, or sleeping too much: Not at all 4. Feeling tired or having little energy: Not at all 5. Poor appetite or overeating: Not at all 6. Feeling bad about yourself - or that you are a failure or have let yourself or your family down: Not at all 7. Trouble concentrating on things, such as reading the newspaper or watching television: Not at all 8. Moving or speaking so slowly that other people could have noticed? - Or the opposite - being so fidgety or restless that you have been moving around a lot more than usual: not at all 9. Thoughts that you would be better off or of hurting yourself in some way: Not at all Total score: 0 If you checked off any problems, how difficult have these problems made it for you to do your work, take care of things at home, or get along with other people?: not difficult at all Source: Developed by Drs. Jose Bolivar, Charlene Casillas, Hussein Sherwood and colleagues, with an educational yousuf from [employer]. Depression screen completed yes Social History Living Situation History Housing: mobile home Housing Other:: pt lives with Tobacco History Smoking Status: Current some day smoker Alcohol History Alcohol Intake: Current Alcohol Intake Frequency: holidays/special occasions only Domestic Abuse History Do You Feel Safe at Home: Yes Review of Systems Report any current symptoms Only answer those that you have currently: Past Medical History Past Medical History Have you ever been diagnosed with any of the following: Neurological Problems Cerebrovascular Accident (CVA): Yes Cardiology Problems Atrial Fibrillation: Yes Congestive Heart Failure: Yes Respiratory Problems Chronic Obstructive Pulmonary Disease (COPD): Yes Smoking: Yes Smoking Cessation Counseling: No Smoking Exposure: Yes Clubbing: No Stomache/Intestinal Problems Gastroesophageal Reflux Disease: Yes Obesity: Yes (gastric bypass) Genital/Urinary Problems Renal Disease: Yes Musculoskeletal Problems Arthritis: Yes Head,Eye,Nose,Throat Problems Cataracts: Yes Endocrine Problems Diabetes Mellitus Type 1: No Diabetes Mellitus Type 2: Yes Blood Problems Anemia: Yes History of Present Illness HPI Narrative This 68-year-old female patient with past medical history for A-fib on amiodarone and warfarin, CKD III, COPD not on home oxygen, 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 She was managed for acute COPD exacerbation and atrial fibrilation in the hospital. Patient had problem with insurance coverage hence she was switched from eliquis to warfarin and was started on amiodarone after cardio consult for atrial fibrillation. Patient follows up with Dr Gaines, her outpatient veterinary physiologist. Patient reported that she feels improvement in her shortness of breath and only feels shortness of breath when she ambulates. Denies any other active concerns. She ran out from her amiodarone and was not taking them and needed refill for the medications. She continues to have irregular rhythm and feels palpitations. Plan was discussed with the patient that she would need INR testing in the lab today. Lab was called that patient's results will be required to be notified at Dr Gaines office once resulted. She was referred to Data Center Solutions Architect, Dr Palmer for management of COPD. She was given refills for her medication amiodarone and albuterol inhaler. She was explained that she will need to get INR weekly or get an INR kit from cardiology clinic as warfarin is regulated with INR. She agreed to the plan and was reassured. 12/28/23: Patient was seen at the office today. Patients recent INR is 2.1 which is in therapeutic range. Patient has seen Dr Gaines and he plans to do cardioversion on January 02. She has appointment due in january with her Data Center Solutions Architect. She had a concern for pain in her both knee joints more severe while walking. we ordered bilateral Knee XR to look for any pathology.She was advised to take Tylenolol 650 mg upto 3 times a day only for severe pain and stop taking aspirin due to interaction with warfarin. She will recieve an INR kit tomorrow and will follow up with Dr Gaines. She is currently taking warfarin 5 mg qday. She was advised to stop torsemide due to soft blood pressure and jardiance as her recent A1c was 5.3 and blood sugars were slightly above normal during hospital stay.We referred her to Dr Alves, Piano Mechanic Apprentice for her chronic kidney disease. We will follow on XR knee results.We will continue with rest of the management. 01/18/24: Patient was seen today in office. Patient was very teary and upset due to persistent symptoms of chest pain and shortness of breath. She reported having persistent palpitations and was concerned regarding her follow up with veterinary physiologist. Per Patient's wishes, we switched her Pattern Assembler, Dr Posadas. I personally spoke to Dr Posadas to have a second opinion for ablation on phone call. He agreed to have a second opinion however due to her severe pulmonary hypertension and mitral valve repair veterinary physiologist suggested that shes not a candidate for ablation but he will follow up for symptomatic Atrial fib management Of note,Previously, she had a unsuccessful ablation per chart. Therefore , cardiology rec currently to increase her Diltiazem to 60 mg three times a day and continue with amiodarone 100 mg two times a day. Rest of the management will remain the same. She was advise to follow up with veterinary physiologist, inspector motor vehicles & Orthopedics after scheduling her appt. She was advised to do her INR levels weekly in our [facility] and I will follow up until she sees veterinary physiologist. She had C/O severe bilateral knee , she has osteoarthritis B/L per XR knee. Per ortho, patient needs to have XR 4V B/L knee weight bearing as well. She was given norco 5/325 only 14 tabs for her severe knee pain. Advised her to follow up after four weeks. 02/08/2024: Patient was seen today at the office visit for follow-up. Patient seem to be asymptomatic and really pleasant and satisfied with her new veterinary physiologist, Dr. Sherrie Posadas. She reported that she had less frequent episodes of palpitations and shortness of breath. Per cardiology, her Cardizem dose was changed to 60 mg twice daily 2 capsules at morning and night. Patient also visited instructional designer recommended to continue her inhalers albuterol, fluticasone inhalers. She also visited inspector motor vehicles, Dr Alves. She has microalbuminuria. Labs showed normocytic anemia and kidney functions 30% with creatinine 1.8. We added losartan 25 mg for proteinuria. Medications were refilled. Patient has history of old CVA with ataxia there for she was advised to follow-up with her physical therapy outpatient. Patient reported having regurgitation with retrosternal burning therefore referral was made with windows server architect, Dr. Mckeon. She received corticosteroids injections intra- articular last week feels significantly improved when she visited Dr. Lai, orthopedics. 07/01/2024: Patient was seen in the [facility] today. Patient reported to have cough from last 2 weeks associated with white phlegm which is present only when she goes to bed for sleeping. She is actively smoking cigarette 6 cigarettes every day and trying to cut back on that. Patient denied any fever any chills, chest pain, any other signs of infection. She did not had swelling in her lower extremities. She was taking her home medications with compliance. Patient was advised to follow-up next week with new orders chest x- ray, BMP, BNP and was given prescription of prednisone 5 mg for 7 days for possible concern for component of bronchospasm and the underlying setting of COPD as culprit for her productive cough. Examination was significant for cough elicited on prolonged expiration. Patient was advised to continue her home medications as prescribed and will likely be follow-up next week with lab results. 07/08/24: Pt came for follow up for labs and she showed improvement in her SOB after steroids course and albuterol inhaler in combination with other inhaler. Still compliants of having orhtopnea. Chest x-ray showed B/L edema and mod vasc congestion. BNP 115 and Kidney functions showing Cr 1.8 Electrolyes unremarkable.Patient was advised to take lasix extra dose half pill once in a week to get rid of extra fluids if SBP above 120 and DBP above 80 so taking 60 mg lasix once every week.Will be given referral for Date Puller for eye examination due to haziness in right eye. 11/04/2024: Patient was seen and examined in the clinic today. Patient has been doing well and did not had any active concerns. She has been feeling very good and has been exercising every day. Examination showed improvement in bilateral air entry and no wheezing was heard. Patient wanted to have a prescription refill for amiodarone, diltiazem, atorvastatin and patient wished to change pharmacy to [place] [facility]. Patient also wanted to have follow-up with hat binder for eye checkup, GI follow-up for GERD and SKIN CARVER follow-up for breast examination. Referrals were given. Patient was advised to make an appointment with respective referrals. Medications were reviewed. Patient is getting her labs/blood work by inspector motor vehicles, Dr Alves next month. Of note, patient's Lasix dose was reduced to 20 mg once daily by inspector motor vehicles. 12/02/2024: Patient was seen and examined in the clinic. Patient reported extreme fatigability and burning sensation with numbness and tingling in both lower extremities. She reported that she had an episode of presyncope last week during her wedding. Examination showed no lower extremity edema or wheezing. She was having tachycardia irregularly irregular. She wanted to have prescription for her medications which was given. She was also complaining of muscle soreness and feeling tired. She also reported to have cold intolerance despite warm temperature outside.Plan is to order thyroid function test, iron panel and A1c as all the tests were performed last year. Additionally, atorvastatin was discontinued and pravastatin 40 mg was started given less risk of muscle weakness as compared to atorvastatin. Her blood pressure was really soft and was recommended to take Lasix every other day and follow-up with cardiology in a week. Follow-up in a week in clinic. 12/23/24: Patient was seen and examined in the clinic today. She reported to have fatigability and generalized weakness with dryness of the mouth and dizziness. Patient reported that she has severe headache and has been having low blood pressure. She followed up with veterinary physiologist a week ago and he recommended to stop taking diltiazem due to soft blood pressure and continue taking amiodarone and Lasix. Labs showed iron level, thyroid functions and A1c within normal limits. He was recommended to hold on Lasix for a week and prefer oral hydration with restarting Lasix on December 30 as every other day due to currently dehydrated clinical volume status. Patient reported to have improvement in her tingling and numbness with Lyrica and continued to had muscle soreness therefore, B12 and CMP were ordered. Her blood pressure was soft during this visit. Will follow-up with the labs. Patient was also complaining of pain in her knees therefore referral was given for physical therapy at least 3 times a week for 8 weeks and orthopedics referral for evaluation and possible another intra-articular steroid injection. Follow-up in a week. 12/30/24: Patient was seen and examined in the clinic with her today. She came for follow-up of her labs. She also reported to have symptoms of flu with cough associated with phlegm from past 3 days. She reported to have mild chills as well. She has been taking [id number] flu medication. Patient continued to have low blood pressure and appeared dehydrated. Labs were significant for B12 330. CHEM panel was significant for NEHA on CKD with creatinine 1.8 with GFR 31%. Thyroid function and A1c within normal limits. Patient was recommended to hold off on Lasix and follow-up with inspector motor vehicles, Dr Alves within a week. She was prescribed with Augmentin 500 mg twice daily renally dose for 5 days for RTI. She reported to have improvement in her numbness and tingling sensation after Lyrica use. IM B12 shot was given and will be continued once every week. Patient is currently waiting for referral for PT and Ortho for knee pain. 02/10/25: Patient came to clinic for follow up. She was complaining of tremors from few weeks and has been taking albuterol inhaler 3 times a week at nighttime. She stated that previous month she received intra-articular steroid injection which helped with her knee joints and has started physical therapy as well. She was confused regarding her medications and therefore, she was provided with list of medications and each medicine was reviewed. Her blood pressure improved from last visits and Piano Mechanic Apprentice recommeneded to keep hold on lasix as she is clinically dehydrated and due to NEHA. She also reported that her INR jumped up to 4.1 and veterinary physiologist, Dr. Posadas recommended to hold warfarin and she will be repeating her INR upcoming week. She was advised to cut back on smoking which she has been trying to do currently smoking 3 cigarettes every day. Patient was given IM B12 shots and was recommended to follow-up in next 2 weeks to evaluate for improvement in tremors and clinical status. Review of Systems Review of Systems Systems Reviewed: All systems reviewed, normal except as documented Objective/Exam Narrative Physical exam: General: Patient is not in acute distress, answering questions appropriately, making appropriate eye contact. HEENT: Normocephalic, atraumatic, EOMI, PERRLA, dry mucous membrane Cardiac: irregular rate and rhythm, normal S1/S2, systolic murmur grade 3 more on apex. Lungs: Bilateral clear breath sounds heard on auscultation. mild wheezing heard on coughing Abdomen: Soft, nontender, nondistended, positive bowel sounds in all quadrants. No guarding or rebound tenderness. Neurology:Alert and oriented x 3. Cranial nerves II to XII intact and patient able to move all 4 extremities. Extremities: Normal to inspection, no edema, no cyanosis, strong peripheral pulses. Psych: appropriate mood and affect. Assessment & Plan Diagnosis / Problem List (1) Hypotension: Status: Acute Qualifiers: Hypotension type: hypotension due to drug Qualified Code(s): I95.2 - Hypotension due to drugs Assessment & Plan: ? Patient blood pressure has improved. ? Examination showed no lower extremity edema and dry mucous membrane. Breath sounds were clear to auscultation. Plan: - Recommended to hold Lasix and continue hydration per nephro and cardio recs - Use of cane to avoid falling (2) Vitamin B12 deficiency: Status: Acute Assessment & Plan: #Vitamin B12 deficiency ? Patient's B12 level was 332. -Thyroid and iron levels were normal Plan: ?IM B12 injection 1000 mcg once every week for 12 weeks (3) Chronic atrial fibrillation: Status: Acute Assessment & Plan: #Chronic atrial Fibrillation: #Severe mitral valve pathology s/p replacement - Patient is currently in rate controlled. Hx of mechanical mitral valve repair on warfarin. Plan: -Take amiodarone 100 mg twice daily -Holding warfarin due to INR 4.1 Per cardiology recs -Warfarin risks were discussed (4) CKD (chronic kidney disease) stage 3, GFR 30-59 ml/min: Status: Acute Qualifiers: Chronic kidney disease stage 3 subtype: stage 3b (GFR 30-44) Qualified Code(s): N18.32 - Chronic kidney disease, stage 3b Assessment & Plan: #CKD (chronic kidney disease) stage 3, GFR 30-59 ml/min ? NEHA on CKD stage III with creatinine 1.8 and GFR 31% improved ? Patient follows up with inspector motor vehicles, Dr Alves Plan: ? Continue hydration and hold lasix ? Recommended to follow-up with inspector motor vehicles within a week ? Avoid nephrotoxic agents including use of NSAIDs (5) Osteoarthritis of knee: Status: Acute Qualifiers: Osteoarthritis type: other secondary Laterality: bilateral Qualified Code(s): M17.4 - Other bilateral secondary osteoarthritis of knee Assessment & Plan: ? Patient has a history of osteoarthritis of the knee and follows Dr. Lai, orthopedics last month Plan: ? Patient received cortisone injections and is following physical therapy as outpatient ?Recommended to continue physical therapy and use of cane for ambulation Patient was discussed with attending physician, Dr. Debra Thomas MD, PGY 2 Advanced Care Planning Advance care planning discussed with:: patient Office Procedures [facility] Level of Care Nursing/Assessment Patient Status: Established Patient Nursing Assessment/Reassessment: Medication Reconciliation, Update PMH in EMR and Vital Signs Coordination of Care: Complex Care and Chronic Disease 1-5, Consent,records obtained, informed consent, Education Simp Pt/Fam and Staff clarify orders Established Patient Charge Established Patient Point Assignment: 85 Established Patient Point Charge: EP Level 3 (80-115)
[2025-02-10 13:34] VITALS: BP 108/69; PULSE 94; RESP 17; TEMP 36.1; O2SAT 96; BMI 23.9
== END 2025-02-10 14:13 | disposition home or self-care (01) ==
LOC: HODAHC 13:14
PROVIDERS: PCP Student in an Organized Health Care Education/Training Program; Referring Provider Student in an Organized Health Care Education/Training Program; Supervising Provider Internal Medicine; Visit Provider Student in an Organized Health Care Education/Training Program
DX: R25.1 Tremor, unspecified (principal); I95.2 Hypotension due to drugs; F17.210 Nicotine dependence, cigarettes, uncomplicated; E53.8 Deficiency of other specified B group vitamins; I48.20 Chronic atrial fibrillation, unspecified; N18.32 Chronic kidney disease, stage 3b; M17.0 Bilateral primary osteoarthritis of knee
CPT/HCPCS: 99213; G0463

== ENCOUNTER 2025-02-24 14:02 | Outpatient (AMB) | payer MEDICARE, SELFPAY ==
[2025-02-24 14:36] VITALS: BP 105/70; PULSE 69; RESP 18; TEMP 36.2; O2SAT 96; BMI 23.8
--- NOTE | 2025-02-24 14:36 | PD.RESCLINIC ---
Vital Signs 02/24/25 14:36 Height 1.63 m Height Method Stated Weight 63.276 kg Weight Measurement Method Standing Scale BMI 23.8 BP 105/70 Blood Pressure Source Automatic Cuff Blood Pressure Location Right Upper Arm Position Sitting Respiration 18 Pulse 69 Pulse Source Monitor Temp 97.2 F Temp Source Temporal Artery Scan Pulse Oximetry (%) 96 Oxygen Delivery Method Room Air Allergies/Meds Allergies & Medications Allergies banana Allergy (Verified 02/24/25 14:38) heparin Allergy (Verified 02/24/25 14:38) rice Allergy (Verified 02/24/25 14:38) Medication Reconciliation melatonin 3 mg tablet 3 mg PO HS 11/19/23 [History Confirmed 02/24/25] umeclidinium 62.5 mcg-vilanterol 25 mcg/actuation powdr for inhalation (Anoro Ellipta) 1 inh inhalation QDAY PRN Dizziness Or Vertigo 11/19/23 [History Confirmed 02/24/25] fluticasone propionate 110 mcg/actuation HFA aerosol inhaler 1 puff inhalation BID wheezing #12 grams 02/08/24 [Rx Confirmed 02/24/25] warfarin 5 mg tablet 5 mg PO QDAY@1200 Atrial Fibrillation #90 tabs 04/22/24 [Rx Confirmed 02/24/25] nicotine 7 mg/24 hr daily transdermal patch 1 patch transdermal Q24H #14 ea 11/04/24 [Rx Confirmed 02/24/25] amiodarone 100 mg tablet 100 mg PO BID 3 months #180 tabs 12/02/24 [Rx Confirmed 02/24/25] pravastatin 40 mg tablet 40 mg PO QHS #90 tabs 12/02/24 [Rx Confirmed 02/24/25] pregabalin 25 mg capsule (Lyrica) 25 mg PO QHS #30 caps 12/02/24 [Rx Confirmed 02/24/25] furosemide 20 mg tablet 20 mg PO Q OTHER DAY #60 tabs 12/23/24 [Rx Confirmed 02/24/25] benzonatate 100 mg capsule 100 mg PO BID PRN cough #30 caps 12/30/24 [Rx Confirmed 02/24/25] meloxicam 7.5 mg tablet 7.5 mg PO QDAY #45 tabs 01/23/25 [Rx Confirmed 02/24/25] amiodarone 100 mg tablet 100 mg PO BID 3 months #180 tabs 02/03/25 [Rx Confirmed 02/24/25] calcitriol 0.25 mcg capsule 0.25 mcg PO QDAY Chronic kidney Disease #90 caps 02/03/25 [Rx Confirmed 02/24/25] cyanocobalamin (vitamin B-12) 1,000 mcg/mL injection solution 100 mcg (0.1 mL) IM QWEEK 4 weeks #0.4 mL 02/03/25 [Rx Confirmed 02/24/25] diltiazem HCl 240 mg capsule,24 hr,extended release 240 mg PO QDAY #30 caps 02/03/25 [Rx Confirmed 02/24/25] vitamin B complex-vitamin C-folic acid 0.8 mg tablet (Mica-Mary) 1 tab PO QDAY #90 tabs 02/03/25 [Rx Confirmed 02/24/25] levalbuterol HCl 0.63 mg/3 mL solution for nebulization 0.63 mg (3 mL) inhalation TID PRN shortness of breath or wheezing #90 mL 02/24/25 [Rx] nystatin 100,000 unit/mL oral suspension 1 ml PO QID 7 days #28 mL 02/24/25 [Rx] MA Intake Visit Data Collection New Patient or Established: Established Patient (seen at [facility] within 3 years) Seen by Clinical Staff ONLY (RN/MA): No Pain Present Currently: Yes Pain Location: Knee Pain scale:: 8 Pain Scale Used: [employer]/Numerical Emery Wheel Worker Required: No PCP or OBGYN visit in last 3 months: Yes Date of Last PCP or OBGYN visit: 02/10/25 Hx Now: No Do You Feel Safe at Home: Yes Authorities Contacted: N/A Smoking Status Smoking Status: Current every day smoker Cessation Counseling Provided: LUZ ELENA was advised that quitting smoking is the single most important factor to protect the health of themselves and their family. Discussed the benefits of quitting smoking with patient. Encouraged patient to quit smoking and provided Cessation assistance materials and resources. Tobacco Use: Cigarette Years smoked: 40 Are you interested in quitting?: No Immunization / Flu Flu Vaccine in the Last 12 Months: No Flu Vaccine Exclusion Criteria: Already Received Past Medical History Past Medical History NEUROLOGIC: Positive Cerebrovascular Accident CARDIAC: Positive Atrial Fibrillation and Congestive Heart Failure RESPIRATORY: Positive Chronic Obstructive Pulmonary Disease (COPD), Smoking and Smoking Exposure; Negative Smoking Cessation Counseling or Clubbing GASTROINTESTINAL: Positive Gastroesophageal Reflux Disease and Obesity (gastric bypass) GENITOURINARY: Positive Renal Disease MUSCULOSKELETAL: Positive Arthritis ENT: Positive Cataracts ENDOCRINE: Positive Diabetes Mellitus Type 2; Negative Diabetes Mellitus Type 1 HEMATOLOGIC: Positive Anemia Social History SMOKING STATUS: Smoking status: Current every day smoker SECOND HAND EXPOSURE: second hand exposure: Yes ALCOHOL: Alcohol Intake: Current ALCOHOL FREQUENCY: Alcohol Intake Frequency: holidays/special occasions only HOUSING: Housing: mobile home LIVES WITH: Lives With: Spouse Patient Portal Questionaires PHQ-9 PHQ-2 Over the last 2 weeks, how often have you been bothered by any of the following problems? 1. Little interest or pleasure in doing things: not at all 2. Feeling down, depressed, or hopeless: not at all Total score: 0 PHQ-9 3. Trouble falling or staying asleep, or sleeping too much: Not at all 4. Feeling tired or having little energy: Not at all 5. Poor appetite or overeating: Not at all 6. Feeling bad about yourself - or that you are a failure or have let yourself or your family down: Not at all 7. Trouble concentrating on things, such as reading the newspaper or watching television: Not at all 8. Moving or speaking so slowly that other people could have noticed? - Or the opposite - being so fidgety or restless that you have been moving around a lot more than usual: not at all 9. Thoughts that you would be better off or of hurting yourself in some way: Not at all Total score: 0 If you checked off any problems, how difficult have these problems made it for you to do your work, take care of things at home, or get along with other people?: not difficult at all Source: Developed by Drs. Jose Bolivar, Charlene Casillas, Hussein Sherwood and colleagues, with an educational yousuf from [employer]. Depression screen completed yes Social History Living Situation History Marital Status: Lives With: Spouse Housing: mobile home Housing Other:: pt lives with Tobacco History Smoking Status: Current every day smoker Second Hand Smoke Exposure: Yes Alcohol History Alcohol Intake: Current Alcohol Intake Frequency: holidays/special occasions only Domestic Abuse History Do You Feel Safe at Home: Yes Review of Systems Report any current symptoms Only answer those that you have currently: Past Medical History Past Medical History Have you ever been diagnosed with any of the following: Neurological Problems Cerebrovascular Accident (CVA): Yes Cardiology Problems Atrial Fibrillation: Yes Congestive Heart Failure: Yes Respiratory Problems Chronic Obstructive Pulmonary Disease (COPD): Yes Smoking: Yes Smoking Cessation Counseling: No Smoking Exposure: Yes Clubbing: No Stomache/Intestinal Problems Gastroesophageal Reflux Disease: Yes Obesity: Yes (gastric bypass) Genital/Urinary Problems Renal Disease: Yes Musculoskeletal Problems Arthritis: Yes Head,Eye,Nose,Throat Problems Cataracts: Yes Endocrine Problems Diabetes Mellitus Type 1: No Diabetes Mellitus Type 2: Yes Blood Problems Anemia: Yes History of Present Illness HPI Narrative This 68-year-old female patient with past medical history for A-fib on amiodarone and warfarin, CKD III, COPD not on home oxygen, 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 She was managed for acute COPD exacerbation and atrial fibrilation in the hospital. Patient had problem with insurance coverage hence she was switched from eliquis to warfarin and was started on amiodarone after cardio consult for atrial fibrillation. Patient follows up with Dr Gaines, her outpatient research program intern. Patient reported that she feels improvement in her shortness of breath and only feels shortness of breath when she ambulates. Denies any other active concerns. She ran out from her amiodarone and was not taking them and needed refill for the medications. She continues to have irregular rhythm and feels palpitations. Plan was discussed with the patient that she would need INR testing in the lab today. Lab was called that patient's results will be required to be notified at Dr Gaines office once resulted. She was referred to Waste Reclaimer, Dr Palmer for management of COPD. She was given refills for her medication amiodarone and albuterol inhaler. She was explained that she will need to get INR weekly or get an INR kit from cardiology clinic as warfarin is regulated with INR. She agreed to the plan and was reassured. 12/28/23: Patient was seen at the office today. Patients recent INR is 2.1 which is in therapeutic range. Patient has seen Dr Gaines and he plans to do cardioversion on January 02. She has appointment due in january with her Waste Reclaimer. She had a concern for pain in her both knee joints more severe while walking. we ordered bilateral Knee XR to look for any pathology.She was advised to take Tylenolol 650 mg upto 3 times a day only for severe pain and stop taking aspirin due to interaction with warfarin. She will recieve an INR kit tomorrow and will follow up with Dr Gaines. She is currently taking warfarin 5 mg qday. She was advised to stop torsemide due to soft blood pressure and jardiance as her recent A1c was 5.3 and blood sugars were slightly above normal during hospital stay.We referred her to Dr Alves, Knitted Cloth Examiner for her chronic kidney disease. We will follow on XR knee results.We will continue with rest of the management. 01/18/24: Patient was seen today in office. Patient was very teary and upset due to persistent symptoms of chest pain and shortness of breath. She reported having persistent palpitations and was concerned regarding her follow up with research program intern. Per Patient's wishes, we switched her Parachute Manufacturing Supervisor, Dr Posadas. I personally spoke to Dr Posadas to have a second opinion for ablation on phone call. He agreed to have a second opinion however due to her severe pulmonary hypertension and mitral valve repair research program intern suggested that shes not a candidate for ablation but he will follow up for symptomatic Atrial fib management Of note,Previously, she had a unsuccessful ablation per chart. Therefore , cardiology rec currently to increase her Diltiazem to 60 mg three times a day and continue with amiodarone 100 mg two times a day. Rest of the management will remain the same. She was advise to follow up with research program intern, supervisor meter repair shop & Orthopedics after scheduling her appt. She was advised to do her INR levels weekly in our [facility] and I will follow up until she sees research program intern. She had C/O severe bilateral knee , she has osteoarthritis B/L per XR knee. Per ortho, patient needs to have XR 4V B/L knee weight bearing as well. She was given norco 5/325 only 14 tabs for her severe knee pain. Advised her to follow up after four weeks. 02/08/2024: Patient was seen today at the office visit for follow-up. Patient seem to be asymptomatic and really pleasant and satisfied with her new research program intern, Dr. Sherrie Posadas. She reported that she had less frequent episodes of palpitations and shortness of breath. Per cardiology, her Cardizem dose was changed to 60 mg twice daily 2 capsules at morning and night. Patient also visited collections agent recommended to continue her inhalers albuterol, fluticasone inhalers. She also visited supervisor meter repair shop, Dr Alves. She has microalbuminuria. Labs showed normocytic anemia and kidney functions 30% with creatinine 1.8. We added losartan 25 mg for proteinuria. Medications were refilled. Patient has history of old CVA with ataxia there for she was advised to follow-up with her physical therapy outpatient. Patient reported having regurgitation with retrosternal burning therefore referral was made with gore seamer, Dr. Mckeon. She received corticosteroids injections intra-articular last week feels significantly improved when she visited Dr. Lai, orthopedics. 07/01/2024: Patient was seen in the [facility] today. Patient reported to have cough from last 2 weeks associated with white phlegm which is present only when she goes to bed for sleeping. She is actively smoking cigarette 6 cigarettes every day and trying to cut back on that. Patient denied any fever any chills, chest pain, any other signs of infection. She did not had swelling in her lower extremities. She was taking her home medications with compliance. Patient was advised to follow-up next week with new orders chest x-ray, BMP, BNP and was given prescription of prednisone 5 mg for 7 days for possible concern for component of bronchospasm and the underlying setting of COPD as culprit for her productive cough. Examination was significant for cough elicited on prolonged expiration. Patient was advised to continue her home medications as prescribed and will likely be follow-up next week with lab results. 07/08/24: Pt came for follow up for labs and she showed improvement in her SOB after steroids course and albuterol inhaler in combination with other inhaler. Still compliants of having orhtopnea. Chest x-ray showed B/L edema and mod vasc congestion. BNP 115 and Kidney functions showing Cr 1.8 Electrolyes unremarkable.Patient was advised to take lasix extra dose half pill once in a week to get rid of extra fluids if SBP above 120 and DBP above 80 so taking 60 mg lasix once every week.Will be given referral for Pecan Picker for eye examination due to haziness in right eye. 11/04/2024: Patient was seen and examined in the clinic today. Patient has been doing well and did not had any active concerns. She has been feeling very good and has been exercising every day. Examination showed improvement in bilateral air entry and no wheezing was heard. Patient wanted to have a prescription refill for amiodarone, diltiazem, atorvastatin and patient wished to change pharmacy to [facility]. Patient also wanted to have follow-up with rotor casting machine operator for eye checkup, GI follow-up for GERD and DOUBLE END TENONER OPERATOR follow-up for breast examination. Referrals were given. Patient was advised to make an appointment with respective referrals. Medications were reviewed. Patient is getting her labs/blood work by supervisor meter repair shop, Dr Alves next month. Of note, patient's Lasix dose was reduced to 20 mg once daily by supervisor meter repair shop. 12/02/2024: Patient was seen and examined in the clinic. Patient reported extreme fatigability and burning sensation with numbness and tingling in both lower extremities. She reported that she had an episode of presyncope last week during her wedding. Examination showed no lower extremity edema or wheezing. She was having tachycardia irregularly irregular. She wanted to have prescription for her medications which was given. She was also complaining of muscle soreness and feeling tired. She also reported to have cold intolerance despite warm temperature outside.Plan is to order thyroid function test, iron panel and A1c as all the tests were performed last year. Additionally, atorvastatin was discontinued and pravastatin 40 mg was started given less risk of muscle weakness as compared to atorvastatin. Her blood pressure was really soft and was recommended to take Lasix every other day and follow-up with cardiology in a week. Follow-up in a week in clinic. 12/23/24: Patient was seen and examined in the clinic today. She reported to have fatigability and generalized weakness with dryness of the mouth and dizziness. Patient reported that she has severe headache and has been having low blood pressure. She followed up with research program intern a week ago and he recommended to stop taking diltiazem due to soft blood pressure and continue taking amiodarone and Lasix. Labs showed iron level, thyroid functions and A1c within normal limits. He was recommended to hold on Lasix for a week and prefer oral hydration with restarting Lasix on December 30 as every other day due to currently dehydrated clinical volume status. Patient reported to have improvement in her tingling and numbness with Lyrica and continued to had muscle soreness therefore, B12 and CMP were ordered. Her blood pressure was soft during this visit. Will follow-up with the labs. Patient was also complaining of pain in her knees therefore referral was given for physical therapy at least 3 times a week for 8 weeks and orthopedics referral for evaluation and possible another intra-articular steroid injection. Follow-up in a week. 12/30/24: Patient was seen and examined in the clinic with her today. She came for follow-up of her labs. She also reported to have symptoms of flu with cough associated with phlegm from past 3 days. She reported to have mild chills as well. She has been taking [id number] flu medication. Patient continued to have low blood pressure and appeared dehydrated. Labs were significant for B12 330. CHEM panel was significant for NEHA on CKD with creatinine 1.8 with GFR 31%. Thyroid function and A1c within normal limits. Patient was recommended to hold off on Lasix and follow-up with supervisor meter repair shop, Dr Alves within a week. She was prescribed with Augmentin 500 mg twice daily renally dose for 5 days for RTI. She reported to have improvement in her numbness and tingling sensation after Lyrica use. IM B12 shot was given and will be continued once every week. Patient is currently waiting for referral for PT and Ortho for knee pain. 02/10/25: Patient came to clinic for follow up. She was complaining of tremors from few weeks and has been taking albuterol inhaler 3 times a week at nighttime. She stated that previous month she received intra-articular steroid injection which helped with her knee joints and has started physical therapy as well. She was confused regarding her medications and therefore, she was provided with list of medications and each medicine was reviewed. Her blood pressure improved from last visits and Knitted Cloth Examiner recommeneded to keep hold on lasix as she is clinically dehydrated and due to NEHA. She also reported that her INR jumped up to 4.1 and research program intern, Dr. Posadas recommended to hold warfarin and she will be repeating her INR upcoming week. She was advised to cut back on smoking which she has been trying to do currently smoking 3 cigarettes every day. Patient was given IM B12 shots and was recommended to follow-up in next 2 weeks to evaluate for improvement in tremors and clinical status. 02/24/2025: Patient came to the clinic for renal panel and PTH lab work follow-up. She stated that her shortness of breath has improved but she has some mild thrush due to use of inhalers. Her breathing inhalers including rescue inhaler and LABA/LAMA and ICS inhaler was discussed and she was shown a video for proper administration of the inhaler. She was switch to levalbuterol from albuterol due to complaint of tremors. She will also prescribed nystatin swish and swallow for oral thrush. Kidney functions showed BUN 28 and creatinine 2.0 with intact PTH 39. Knitted Cloth Examiner, Dr Alves recommended to to monitor kidney functions for now and she will follow-up with the patient with repeat kidney functions and PTH in March 2025. Patient was informed regarding follow-up with supervisor meter repair shop. Patient's INR has been around [address] Posadas, research program intern has been following up with dosage of warfarin and patient is currently holding warfarin. She was given IM B12 shots. Follow-up in 3 weeks. Review of Systems Review of Systems Systems Reviewed: All systems reviewed, normal except as documented Objective/Exam Narrative Physical exam: General: Patient is not in acute distress, answering questions appropriately, making appropriate eye contact. HEENT: Normocephalic, atraumatic, EOMI, PERRLA, dry mucous membrane Cardiac: irregular rate and rhythm, normal S1/S2, systolic murmur grade 3 more on apex. Lungs: Bilateral clear breath sounds heard on auscultation. mild wheezing heard on coughing Abdomen: Soft, nontender, nondistended, positive bowel sounds in all quadrants. No guarding or rebound tenderness. Neurology:Alert and oriented x 3. Cranial nerves II to XII intact and patient able to move all 4 extremities. Extremities: Normal to inspection, no edema, no cyanosis, strong peripheral pulses. Psych: appropriate mood and affect. Assessment & Plan Diagnosis / Problem List (1) CKD (chronic kidney disease) stage 3, GFR 30-59 ml/min: Status: Acute Qualifiers: Chronic kidney disease stage 3 subtype: stage 3b (GFR 30-44) Qualified Code(s): N18.32 - Chronic kidney disease, stage 3b Assessment & Plan: ? Patient's kidney functions revealed BUN 28 and creatinine 2.0. Last creatinine 1.8. GFR 27%. PTH 39 ?Patient reports to have good urine output. Plan: ? Recommended to follow-up with supervisor meter repair shop on April 07, 2025 ? Per nephrology recommendations we will repeat kidney functions and PTH before nephrology follow-up ?Recommended to hold Lasix as patient is not in fluid overload state (2) Vitamin B12 deficiency: Status: Acute Assessment & Plan: ? Patient is getting IM B12 injections once weekly Plan: ? IM B12 shots were given today (3) COPD (chronic obstructive pulmonary disease): Status: Acute Assessment & Plan: ? Patient is using rescue inhaler albuterol in nebulizer, fluticasone ICS, Anoro Ellipta for COPD management ? Patient is currently smoking 3 cigarettes every day and is still using nicotine patch Plan: ? Patient was shown videos for proper administration of inhalers ? Recommended to continue using fluticasone twice daily as needed, Ellipta once every day as needed ? Switch from albuterol to levalbuterol due to concern for tremors ? Nystatin swish and swallow for oral thrush given for 7 days Patient was seen and discussed with attending physician, Dr.Wat[place]unakorn Dr. Martha MD, PGY 2 Orders: Orders Renal Function Panel 04/03/25 N18.32 - Chronic kidney disease, stage 3b Parathyroid Hormone Intact 04/03/25 N18.32 - Chronic kidney disease, stage 3b Additional Assessment Attending note: I, Edgar Richardson MD, attest that I was physically present for the perez portions of the service and evaluated the patient with the resident and I reviewed and discussed the case with the resident and agree with the resident's findings and plans of care as documented above. Edgar Richardson MD Advanced Care Planning Advance care planning discussed with:: patient Physician Billing Established Patient Established Patient: E/M Level 3-CPT 39374 Office Procedures [facility] Level of Care Nursing/Assessment Patient Status: Established Patient Nursing Assessment/Reassessment: Medication Reconciliation, Update PMH in EMR and Vital Signs Coordination of Care: Complex Care and Chronic Disease 1-5, Consent,records obtained, informed consent, Education Simp Pt/Fam and Staff clarify orders Established Patient Charge Established Patient Point Assignment: 85 Established Patient Point Charge: Level 3 (80-115) TB Screening LTBI Screening: Immunosuppression, current or planned (HIV, organ transplant, treated with biologic agents, steroids, or other immunosuppression medication): No Close contact to someone with infectious TB disease during lifetime: No Homelessness or incarceration, current or past: No TB testing indicated at this time (at least 1 yes above): No
== END 2025-02-24 17:20 | disposition home or self-care (01) ==
LOC: HODAHC 14:02
PROVIDERS: PCP Student in an Organized Health Care Education/Training Program; Referring Provider Student in an Organized Health Care Education/Training Program; Supervising Provider Internal Medicine; Visit Provider Student in an Organized Health Care Education/Training Program
DX: B37.0 Candidal stomatitis (principal); N18.32 Chronic kidney disease, stage 3b; E53.8 Deficiency of other specified B group vitamins; J44.9 Chronic obstructive pulmonary disease, unspecified; F17.210 Nicotine dependence, cigarettes, uncomplicated
CPT/HCPCS: 99213; G0463

== ENCOUNTER → 2025-02-24 | Outpatient (CLI) | payer MEDICARE, SELFPAY ==
[2025-02-24 13:57] LABS: Basophils % (Auto) 0 % (0-2.5); Eosinophils % (Auto) 1 % (0-10); Hematocrit 31.7 % (36.0-46.0); Hemoglobin 10.4 g/dL (12.0-16.0); Immature Granulocytes % (Auto) 0 % (0-0); Immature Granulocytes Auto 0.02 Thou/mm3 (0.00-0.00); Lymphocytes # (Auto) 0.8 Thou/mm3 (1.0-4.8); Lymphocytes % (Auto) 12 % (10-50); Mean Corpuscular HGB Conc 32.8 g/dl (31.0-37.0); Mean Corpuscular Hemoglobin 30.2 pg (25.0-35.0); Mean Corpuscular Volume 92 fL (80-100); Monocytes # (Auto) 0.3 Thou/mm3 (0.0-0.8); Monocytes % (Auto) 5 % (0-12); Neutrophils # (Auto) 5.3 Thou/mm3 (1.8-7.7); Neutrophils % (Auto) 82 % (37-80); Nucleated Red Blood Cell % 0 /100 WBC (0); Platelet Count 225 Thou/mm3 (140-440); RDW Standard Deviation 56.3 fL (36.4-46.3); Red Blood Count 3.44 Miln/mm3 (4.00-5.20); White Blood Count 6.5 Thou/mm3 (3.6-11.0)
[2025-02-24 14:05] LABS: Parathyroid Hormone Intact 39.3 pg/ml (18.5-88.0)
[2025-02-24 14:12] LABS: Alanine Aminotransferase 167 U/L (10-49); Albumin, Serum 3.9 gm/dL (3.4-4.8); Albumin/Globulin Ratio 1.3 (1.2-2.2); Alkaline Phosphatase 88 U/L (46-116); Anion Gap 8 (7-16); Aspartate Amino Transferase 177 U/L (0-34); BUN/Creatinine Ratio 14 Ratio (12-20); Bilirubin,Total 0.3 mg/dL (0.3-1.2); Blood Urea Nitrogen 28 mg/dL (9-23); Calcium 9.5 mg/dL (8.3-10.6); Calcium (Corrected) 9.6 mg/dL (8.5-10.1); Carbon Dioxide 25.6 mMol/L (20.0-31.0); Cardiac Risk Estimate 1.7 RATIO (3.7-5.6); Chloride 106 mMol/L (98-107); Cholesterol 67 mg/dL (132-200); Glucose 118 mg/dL (74-106); HDL Cholesterol 39 mg/dL (40-60); LDL Cholesterol,Calculated 19 mg/dL (0-130); Osmolality,Calculated 285 (275-295); Potassium 4.2 mMol/L (3.4-5.1); Sodium 140 mMol/L (136-145); Total Protein 6.9 gm/dL (5.7-8.2); Triglycerides 43 mg/dL (30-150); eGFR 27 See Note
== END | disposition home or self-care (01) ==
PROVIDERS: PCP Student in an Organized Health Care Education/Training Program; Referring Provider Internal Medicine; Visit Provider Internal Medicine
DX: I12.9 Hypertensive chronic kidney disease with stage 1 through stage 4 chronic kidney disease, or unspecified chronic kidney disease (principal); N18.30 Chronic kidney disease, stage 3 unspecified; E78.5 Hyperlipidemia, unspecified
CPT/HCPCS: 36415; 80053; 80061; 81001; 82570; 83970; 85025

== ENCOUNTER 2025-03-05 08:30 | Outpatient (RCR) | payer MEDICARE, SELFPAY ==
--- NOTE | 2025-02-11 10:19 | PT.OIERPT ---
PT OP Initial Eval Patient Information Outpatient Physical Therapy Treatment Date: 02/11/25 Visit Reasons: Bilateral knee pain Medical Diagnosis: Bilateral Knee OA Treatment Dx #1: Bilateral Knee Pain Smoking Status Smoking Status: Current every day smoker Cessation Counseling Provided: LUZ ELENA was advised that quitting smoking is the single most important factor to protect the health of themselves and their family. Discussed the benefits of quitting smoking with patient. Encouraged patient to quit smoking and provided Cessation assistance materials and resources. Tobacco Use: Cigarette Years smoked: 10 Are you interested in quitting?: No Would you like additional Smoking Cessation Counseling?: No Initial Assessment Subjective: Pt is a 69 y/o female reports of chronic knee pain (03/19). Pt recently received cortisone shots in her knees which seems to help the pain. Pt's most recent xray showed moderate knee OA at the medial joint. Pt has limitation with standing, walking, kneeling, squatting, chores, self care, and performing recreational activities. Objective: Bilateral Knee AROM: all motions are WFL with end range pain Bilateral Knee MMTs: grossly 4-/5 Bilateral Hip MMTs: grossly 3+/5 SLS: NT Assessment: Pt demonstrate bilateral knee pain consistent with knee OA leading to difficulty with ADLs and ambulation. Pt will attempt physical therapy if pain persist Pt will be refer back to provider for further consultation. Short Term and Accountant Machine Processing Goals 1) Increase knee AROM WNL in 6 wks to be able to perform squatting activities 2) Decrease knee pain to 2/10 in 6 wks to be able to stand more than 30 mins 3) Increase knee MMTs grossly to 4/5 in 6 wks to be able to perform stairs and steps 4) Increase hip MMTs grossly to 4-/5 in 6 wks to be able to walk more than 30 mins 5) Indep with HEP Treatment Plan 1) Manual Therapy 2) Therapeutic Activities 3) Therapeutic Exercises 4) Modalities (ice, heat) 5) Balance Training 6) Gait Training Frequency and Duration: 2 x wk for 6 wks Certification Dates: 02/11/25 to 05/14/25 Procedure Charges OP PT Eval Mod Complex 30 minutes: Yes
--- NOTE | 2025-02-16 09:17 | PTNOTE_ITS ---
PT Outpatient Daily Note OP Daily Note Outpatient Physical Therapy Treatment Date: 02/16/25 Visit Reasons: Bilateral knee pain Subjective: Pt's knee is hurting and feels weak. Pt wants to buy a band at [facility] to help strengthen her legs and arms. Objective: Please see flow chart for list of ther ex performed Assessment: tolerate exercises with minimal pain. Instructed patient on HEP with TB; [place] TB was cut and given to patient in order to be able to perform HEP Plan: Continue with PT Length of Time (minutes) of Treatment: 30 Minutes Procedure Charges Therapeutic Exercise 30 minutes: Yes
--- NOTE | 2025-02-18 12:47 | PT.ODAYNRPT ---
PT Outpatient Daily Note OP Daily Note Outpatient Physical Therapy Treatment Date: 02/18/25 Visit Reasons: Bilateral knee pain Subjective: Pt's knee is sore and hurting today. Objective: Please see flow chart for list of ther ex performed Assessment: tolerate exercises with minimal pain Plan: Continue with PT Length of Time (minutes) of Treatment: 30 Minutes Procedure Charges Therapeutic Exercise 30 minutes: Yes
--- NOTE | 2025-03-05 09:11 | PT.ODAYNRPT ---
PT Outpatient Daily Note OP Daily Note Outpatient Physical Therapy Treatment Date: 03/05/25 Visit Reasons: Bilateral knee pain Subjective: Pt reports B knee pain that is worse with initial standing from sitting. Objective: Please see flow sheet for ther ex list. Assessment: Pt demonstrates poor activity tolerance due to pain response and general weakness. Plan: Continue with pOC. Length of Time (minutes) of Treatment: 30 Minutes [employer] Service Modifier Method I: Divide the number of min of care provided by the JAC[employer]ACE WE[employer]ER/TRAINING AND DEVELOPMENT SPECIALIST by the total min of care provided then multiply by 100. If greater than 11 percent modifier is required. Method II: Divide the total time of care provided to patient by 10 (round to the nearest whole number) and add 1 min. to set the minimum time requirement. If treatment total was 60 min., then 10% of 6 min PT CQ modifier applied: CQ Modifier applied Procedure Charges Therapeutic Exercise 30 minutes: Yes
== END 2025-03-09 23:59 | disposition home or self-care (01) ==
LOC: CPTX 08:30
PROVIDERS: PCP Student in an Organized Health Care Education/Training Program; Referring Provider Student in an Organized Health Care Education/Training Program; Visit Provider Student in an Organized Health Care Education/Training Program
DX: M25.562 Pain in left knee (principal); M25.561 Pain in right knee; M17.0 Bilateral primary osteoarthritis of knee; Z71.6 Tobacco abuse counseling; F17.210 Nicotine dependence, cigarettes, uncomplicated; R26.2 Difficulty in walking, not elsewhere classified
CPT/HCPCS: 97110; 97162

== ENCOUNTER 2025-03-16 08:13 | Outpatient (RCR) | payer MEDICARE, SELFPAY ==
--- NOTE | 2025-03-16 09:05 | PT.ODAYNRPT ---
PT Outpatient Daily Note OP Daily Note Outpatient Physical Therapy Treatment Date: 03/16/25 Visit Reasons: bilateral knee pain Subjective: Pt reports feeling more tired today. Objective: Please see flow sheet for ther ex list. Assessment: Pt demonstrates poor endurance today, requires frequent rest breaks during interventions. Plan: Continue with pOC. Length of Time (minutes) of Treatment: 30 Minutes Procedure Charges Therapeutic Exercise 30 minutes: Yes
== END 2025-04-09 23:59 | disposition home or self-care (01) ==
LOC: CPTX 08:13
PROVIDERS: PCP Student in an Organized Health Care Education/Training Program; Referring Provider Student in an Organized Health Care Education/Training Program; Visit Provider Student in an Organized Health Care Education/Training Program
DX: M25.562 Pain in left knee (principal); M25.561 Pain in right knee; G89.29 Other chronic pain; R26.2 Difficulty in walking, not elsewhere classified; M17.0 Bilateral primary osteoarthritis of knee
CPT/HCPCS: 97110

== ENCOUNTER → 2025-03-16 | Outpatient (CLI) | payer MEDICARE, SELFPAY ==
[2025-03-16 12:22] LABS: Parathyroid Hormone Intact 45.2 pg/ml (18.5-88.0)
[2025-03-16 12:23] LABS: Alanine Aminotransferase 106 U/L (10-49); Albumin, Serum 4.2 gm/dL (3.4-4.8); Alkaline Phosphatase 84 U/L (46-116); Aspartate Amino Transferase 141 U/L (0-34); Bilirubin,Direct 0.5 mg/dL (0.0-0.3); Bilirubin,Total 0.9 mg/dL (0.3-1.2); Total Protein 7.5 gm/dL (5.7-8.2)
[2025-03-16 12:25] LABS: INR 2.1 (0.9-1.3); Prothrombin Time 22.2 Seconds (9.0-12.2)
[2025-03-16 12:33] LABS: Ferritin 381 ng/mL (7.3-270.7); Iron 8 mcg/dL (50-170); Percent Iron Saturation 3 % (20-55); Total Iron Binding Capacity 235 mcg/dL (250-425); Unsaturated Iron Binding 227 (225-295)
[2025-03-16 13:10] LABS: AFP Non-Pregnant 5.20 ng/mL (<8.10); Hepatitis A Antibody IgM Non Reactive (Non React); Hepatitis B Core Antibody IgM Non Reactive (Non React); Hepatitis B Surface Antigen Non Reactive (Non React); Hepatitis C Antibody Non Reactive (Non React)
[2025-03-18 06:21] LABS: ACTH, Plasma* 18 pg/mL (6-50)
== END | disposition home or self-care (01) ==
LOC: COPL 09:59
PROVIDERS: PCP Student in an Organized Health Care Education/Training Program; Referring Provider Specialist; Visit Provider Specialist
DX: R14.0 Abdominal distension (gaseous) (principal); R10.32 Left lower quadrant pain; R10.31 Right lower quadrant pain; R10.13 Epigastric pain; N18.32 Chronic kidney disease, stage 3b
CPT/HCPCS: 36415; 80074; 80076; 82024; 82103; 82105; 82390; 82525; 82728; 83540; 83550; 83970; 85610; 86038; 86255

== ENCOUNTER 2025-03-27 10:30 | Day surgery (SDC) | payer MEDICARE, SELFPAY ==
[2025-03-26 14:36] VITALS: BMI 23.3
[2025-03-27] VITALS (10 sets, daily range): BP systolic 109–139; BP diastolic 75–90; PULSE 104–122; RESP 12–20; TEMP 36.3–36.8; O2SAT 95–100; BMI 21.4
[2025-03-27] MEDS: Ampicillin Inj 2,000 MG in SODIUM CHLORIDE 0.9% (POP) 100 ML 100 MG IV (11:10)
[2025-03-27] MEDS: GENTAMICIN/NS 80 MG IVPB 80 MG/50 ML PIGGYBACK 50 MG IV (11:45)
[2025-03-27] MEDS: SODIUM CHLORIDE 0.9% 500 ML 500 ML 20 ML IV (12:07)
[2025-03-27] MEDS: MIDAZOLAM INJ 1 MG/ML VIAL 2 ML (ASD USE ONLY) 2 MG IVP (12:07)
[2025-03-27] MEDS: fentaNYL CIT INJ 50 mCg/ML AMP 2ML (ASD USE ONLY) IVP (12:11)
--- NOTE | 2025-03-27 13:17 | SUR.PHASEII ---
1225 patient into recovery with no acute distress noted, v/s stable, no complaints of pain or nausea at this time, patient actively passing flatus, report received from miki rn. 1235 patient repositions self for comfort, patient denies pain and nausea, patient continues to pass flatus. 1245 patient drinking 7up with no difficulty. 1258 patient in wheelchair awaiting 's arrival. 1305 d/c instructions given to patient and , patient D/C home.
== END 2025-03-27 13:05 | disposition home or self-care (01) ==
PROVIDERS: PCP Student in an Organized Health Care Education/Training Program; Referring Provider Specialist; Visit Provider Specialist
PROC: 0DBE8ZX Excision of Large Intestine, Via Natural or Artificial Opening Endoscopic, Diagnostic (ICD-10-PCS; CPT 45380; principal; 2025-03-27 14:30)
DX: K63.89 Other specified diseases of intestine (principal); K62.89 Other specified diseases of anus and rectum; K64.9 Unspecified hemorrhoids; E78.5 Hyperlipidemia, unspecified; I49.9 Cardiac arrhythmia, unspecified; Z79.02 Long term (current) use of antithrombotics/antiplatelets
CPT/HCPCS: 45380; J0290; J1200; J1580; J2250; J3010; J7999

== ENCOUNTER → 2025-03-30 | Outpatient (CLI) | payer MEDICARE, SELFPAY ==
--- NOTE | 2025-03-30 11:30 | XR_ITS ---
Examination: Abdomen sonogram, Limited Date and time of exam: March 30, 2025 0934 hours INDICATIONS: Abdominal distention beginning 4 months ago Technique: Real-time ramon scale transabdominal sonographic images of the upper abdomen obtained. Findings: 8 mm gallstone Normal gallbladder wall Normal common bile duct 0.2 cm Pancreatic head 1.1 cm Liver 16.9 cm fatty infiltration irregular contour no focal liver lesions Normal hepatopedal portal venous flow Patent IVC IMPRESSION: Cholelithiasis Primary hepatocellular disease
== END | disposition home or self-care (01) ==
PROVIDERS: PCP Student in an Organized Health Care Education/Training Program; Referring Provider Specialist; Visit Provider Specialist
DX: K80.20 Calculus of gallbladder without cholecystitis without obstruction (principal); K76.9 Liver disease, unspecified
CPT/HCPCS: 76705

== ENCOUNTER 2025-04-02 13:12 | Outpatient (AMB) | payer MEDICARE, SELFPAY ==
[2025-04-02 13:20] VITALS: BP 87/59; PULSE 114; RESP 18; TEMP 36.6; O2SAT 97
--- NOTE | 2025-04-02 13:20 | PD.RESCLINIC ---
Vital Signs 04/02/25 13:20 Weight 61.348 kg Weight Measurement Method Standing Scale BP 87/59 L Blood Pressure Source Automatic Cuff Blood Pressure Location Right Upper Arm Position Sitting Respiration 18 Pulse 114 H Pulse Source Monitor Temp 97.8 F Temp Source Temporal Artery Scan Pulse Oximetry (%) 97 Oxygen Delivery Method Room Air Allergies/Meds Allergies & Medications Allergies banana Allergy (Severe, Verified 04/05/25 14:16) Swelling of Lip/Tongue/Throat chicken derived Allergy (Severe, Verified 04/05/25 14:16) Hives heparin Allergy (Severe, Verified 04/05/25 14:16) Unconscious rice Allergy (Intermediate, Verified 04/05/25 14:16) CHOKES Medication Reconciliation melatonin 3 mg tablet 3 mg PO HS 11/19/23 [History Confirmed 04/05/25] umeclidinium 62.5 mcg-vilanterol 25 mcg/actuation powdr for inhalation (Anoro Ellipta) 1 inh inhalation QDAY PRN Dizziness Or Vertigo 11/19/23 [History Confirmed 04/05/25] fluticasone propionate 110 mcg/actuation HFA aerosol inhaler 1 puff inhalation BID wheezing #12 grams 02/08/24 [Rx Confirmed 04/05/25] pravastatin 40 mg tablet 40 mg PO QHS #90 tabs 12/02/24 [Rx Confirmed 04/05/25] pregabalin 25 mg capsule (Lyrica) 25 mg PO QHS #30 caps 12/02/24 [Rx Confirmed 04/05/25] benzonatate 100 mg capsule 100 mg PO BID PRN cough #30 caps 12/30/24 [Rx Confirmed 04/05/25] levalbuterol HCl 0.63 mg/3 mL solution for nebulization 0.63 mg (3 mL) inhalation TID PRN shortness of breath or wheezing #90 mL 02/24/25 [Rx Confirmed 04/05/25] albuterol sulfate 0.63 mg/3 mL solution for nebulization 0.63 mg (3 mL) inhalation QID PRN wheezing #75 mL 03/17/25 [Rx Confirmed 04/05/25] diltiazem HCl 240 mg capsule,extended release 24 hr (Cardizem CD) 240 mg PO QDAY #90 caps 04/07/25 [Rx] ferrous sulfate 325 mg (65 mg iron) tablet,delayed release 325 mg PO Q OTHER DAY #180 tabs 04/07/25 [Rx] midodrine 10 mg tablet 10 mg PO TID #90 tabs 04/07/25 [Rx] polyethylene glycol 3350 17 gram oral powder packet (Miralax) 17 g PO QDAY PRN constipation #30 ea 04/07/25 [Rx] warfarin 5 mg tablet 5 mg PO QDAY #60 tabs 04/07/25 [Rx] digoxin 125 mcg (0.125 mg) tablet 125 mcg PO QDAY #90 tabs 04/08/25 [Rx] vitamin B complex-vitamin C-folic acid 0.8 mg tablet (Mica-Mary) 1 tab PO QDAY #90 tabs 04/09/25 [Rx] MA Intake Visit Data Collection New Patient or Established: Established Patient (seen at [facility] within 3 years) Seen by Clinical Staff ONLY (RN/RUSS): No Pain Present Currently: No Pain scale:: 0 Pain Scale Used: [employer]/Numerical Link And Link Knitting Machine Operator Required: No PCP or OBGYN visit in last 3 months: No Hx Now: No Do You Feel Safe at Home: Yes Authorities Contacted: N/A Smoking Status Smoking Status: Former smoker Immunization / Flu Flu Vaccine in the Last 12 Months: Yes Flu Vaccine Exclusion Criteria: Already Received Past Medical History Past Medical History NEUROLOGIC: Positive Cerebrovascular Accident (EYE STROKE); Negative Seizures CARDIAC: Positive Cardiac Disorders, Atrial Fibrillation, Hypercholesterolemia and Valvular Heart Disease; Negative Congestive Heart Failure RESPIRATORY: Positive Chronic Obstructive Pulmonary Disease (COPD), Smoking and Smoking Exposure; Negative Smoking Cessation Counseling or Clubbing GASTROINTESTINAL: Positive Gastrointestinal Disorders, Gastroesophageal Reflux Disease and Obesity (gastric bypass) GENITOURINARY: Positive Genitourinary Disorders and Renal Disease MUSCULOSKELETAL: Positive Arthritis ENT: Positive Cataracts ENDOCRINE: Negative Endocrine Disorders, Diabetes Mellitus Type 1 or Diabetes Mellitus Type 2 HEMATOLOGIC: Positive Anemia; Negative Blood Disorders OTHER HISTORY: Negative Autoimmune Disease, Blood Transfusions, Blood Transfusion Reaction, Anesthesia Reactions or Cancer Surgical History SURGICAL: Positive Valve Replacement and Gastric Bypass Surgery Social History SMOKING STATUS: Smoking status: Former smoker SECOND HAND EXPOSURE: second hand exposure: Yes ALCOHOL: Alcohol Intake: Former ALCOHOL FREQUENCY: Alcohol Intake Frequency: holidays/special occasions only HOUSING: Housing: mobile home LIVES WITH: Lives With: Spouse Patient Portal Questionaires PHQ-9 PHQ-2 Over the last 2 weeks, how often have you been bothered by any of the following problems? 1. Little interest or pleasure in doing things: not at all PHQ-9 8. Moving or speaking so slowly that other people could have noticed? - Or the opposite - being so fidgety or restless that you have been moving around a lot more than usual: not at all Source: Developed by Drs. Jose Bolivar, Charlene Casillas, Hussein Sherwood and colleagues, with an educational yousuf from [employer]. Social History Living Situation History Lives With: Spouse Housing: mobile home Housing Other:: pt lives with Tobacco History Smoking Status: Former smoker Second Hand Smoke Exposure: Yes Alcohol History Alcohol Intake: Former Alcohol Intake Frequency: holidays/special occasions only Domestic Abuse History Do You Feel Safe at Home: Yes Review of Systems Report any current symptoms Only answer those that you have currently: Past Medical History Past Medical History Have you ever been diagnosed with any of the following: Neurological Problems Cerebrovascular Accident (CVA): Yes (EYE STROKE) Seizures: No Cardiology Problems Atrial Fibrillation: Yes Hypercholesterolemia: Yes Congestive Heart Failure: No Valvular Heart Disease: Yes Respiratory Problems Chronic Obstructive Pulmonary Disease (COPD): Yes Smoking: Yes Smoking Cessation Counseling: No Smoking Exposure: Yes Clubbing: No Stomache/Intestinal Problems Gastroesophageal Reflux Disease: Yes Obesity: Yes (gastric bypass) Genital/Urinary Problems Renal Disease: Yes Musculoskeletal Problems Arthritis: Yes Head,Eye,Nose,Throat Problems Cataracts: Yes Endocrine Problems Diabetes Mellitus Type 1: No Diabetes Mellitus Type 2: No Blood Problems Anemia: Yes Other Problems Autoimmune Disease: No Blood Transfusions: No Blood Transfusion Reaction: No Anesthesia Reactions: No Cancer: No Surgical History Valve Replacement: Yes History of Present Illness HPI Narrative This 69-year-old female patient with past medical history for A-fib on amiodarone and warfarin, CKD III, COPD not on home oxygen, 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 She was managed for acute COPD exacerbation and atrial fibrilation in the hospital. Patient had problem with insurance coverage hence she was switched from eliquis to warfarin and was started on amiodarone after cardio consult for atrial fibrillation. Patient follows up with Dr Gaines, her outpatient botany laboratory assistant. Patient reported that she feels improvement in her shortness of breath and only feels shortness of breath when she ambulates. Denies any other active concerns. She ran out from her amiodarone and was not taking them and needed refill for the medications. She continues to have irregular rhythm and feels palpitations. Plan was discussed with the patient that she would need INR testing in the lab today. Lab was called that patient's results will be required to be notified at Dr Gaines office once resulted. She was referred to Public Records Officer, Dr Palmer for management of COPD. She was given refills for her medication amiodarone and albuterol inhaler. She was explained that she will need to get INR weekly or get an INR kit from cardiology clinic as warfarin is regulated with INR. She agreed to the plan and was reassured. 12/28/23: Patient was seen at the office today. Patients recent INR is 2.1 which is in therapeutic range. Patient has seen Dr Gaines and he plans to do cardioversion on January 02. She has appointment due in january with her Public Records Officer. She had a concern for pain in her both knee joints more severe while walking. we ordered bilateral Knee XR to look for any pathology.She was advised to take Tylenolol 650 mg upto 3 times a day only for severe pain and stop taking aspirin due to interaction with warfarin. She will recieve an INR kit tomorrow and will follow up with Dr Gaines. She is currently taking warfarin 5 mg qday. She was advised to stop torsemide due to soft blood pressure and jardiance as her recent A1c was 5.3 and blood sugars were slightly above normal during hospital stay.We referred her to Dr Alves, Horseradish Maker for her chronic kidney disease. We will follow on XR knee results.We will continue with rest of the management. 01/18/24: Patient was seen today in office. Patient was very teary and upset due to persistent symptoms of chest pain and shortness of breath. She reported having persistent palpitations and was concerned regarding her follow up with botany laboratory assistant. Per Patient's wishes, we switched her Supervisor Coal Handling, Dr Posadas. I personally spoke to Dr Posadas to have a second opinion for ablation on phone call. He agreed to have a second opinion however due to her severe pulmonary hypertension and mitral valve repair botany laboratory assistant suggested that shes not a candidate for ablation but he will follow up for symptomatic Atrial fib management Of note,Previously, she had a unsuccessful ablation per chart. Therefore , cardiology rec currently to increase her Diltiazem to 60 mg three times a day and continue with amiodarone 100 mg two times a day. Rest of the management will remain the same. She was advise to follow up with botany laboratory assistant, cook dessert & Orthopedics after scheduling her appt. She was advised to do her INR levels weekly in our [facility] and I will follow up until she sees botany laboratory assistant. She had C/O severe bilateral knee , she has osteoarthritis B/L per XR knee. Per ortho, patient needs to have XR 4V B/L knee weight bearing as well. She was given norco 5/325 only 14 tabs for her severe knee pain. Advised her to follow up after four weeks. 02/08/2024: Patient was seen today at the office visit for follow-up. Patient seem to be asymptomatic and really pleasant and satisfied with her new botany laboratory assistant, Dr. Sherrie Posadas. She reported that she had less frequent episodes of palpitations and shortness of breath. Per cardiology, her Cardizem dose was changed to 60 mg twice daily 2 capsules at morning and night. Patient also visited rug dyer recommended to continue her inhalers albuterol, fluticasone inhalers. She also visited cook dessert, Dr Alves. She has microalbuminuria. Labs showed normocytic anemia and kidney functions 30% with creatinine 1.8. We added losartan 25 mg for proteinuria. Medications were refilled. Patient has history of old CVA with ataxia there for she was advised to follow-up with her physical therapy outpatient. Patient reported having regurgitation with retrosternal burning therefore referral was made with postpartum nurse, Dr. Mckeon. She received corticosteroids injections intra-articular last week feels significantly improved when she visited Dr. Lai, orthopedics. 07/01/2024: Patient was seen in the [facility]. Patient reported to have cough from last 2 weeks associated with white phlegm which is present only when she goes to bed for sleeping. She is actively smoking cigarette 6 cigarettes every day and trying to cut back on that. Patient denied any fever any chills, chest pain, any other signs of infection. She did not had swelling in her lower extremities. She was taking her home medications with compliance. Patient was advised to follow-up next week with new orders chest x-ray, BMP, BNP and was given prescription of prednisone 5 mg for 7 days for possible concern for component of bronchospasm and the underlying setting of COPD as culprit for her productive cough. Examination was significant for cough elicited on prolonged expiration. Patient was advised to continue her home medications as prescribed and will likely be follow-up next week with lab results. 07/08/24: Pt came for follow up for labs and she showed improvement in her SOB after steroids course and albuterol inhaler in combination with other inhaler. Still compliants of having orhtopnea. Chest x-ray showed B/L edema and mod vasc congestion. BNP 115 and Kidney functions showing Cr 1.8 Electrolyes unremarkable.Patient was advised to take lasix extra dose half pill once in a week to get rid of extra fluids if SBP above 120 and DBP above 80 so taking 60 mg lasix once every week.Will be given referral for Stunt Woman for eye examination due to haziness in right eye. 11/04/2024: Patient was seen and examined in the clinic today. Patient has been doing well and did not had any active concerns. She has been feeling very good and has been exercising every day. Examination showed improvement in bilateral air entry and no wheezing was heard. Patient wanted to have a prescription refill for amiodarone, diltiazem, atorvastatin and patient wished to change pharmacy to [place] [facility]. Patient also wanted to have follow-up with pin machine operator for eye checkup, GI follow-up for GERD and SUPERVISOR PARK WORKERS follow-up for breast examination. Referrals were given. Patient was advised to make an appointment with respective referrals. Medications were reviewed. Patient is getting her labs/blood work by cook dessert, Dr Alves next month. Of note, patient's Lasix dose was reduced to 20 mg once daily by cook dessert. 12/02/2024: Patient was seen and examined in the clinic. Patient reported extreme fatigability and burning sensation with numbness and tingling in both lower extremities. She reported that she had an episode of presyncope last week during her wedding. Examination showed no lower extremity edema or wheezing. She was having tachycardia irregularly irregular. She wanted to have prescription for her medications which was given. She was also complaining of muscle soreness and feeling tired. She also reported to have cold intolerance despite warm temperature outside.Plan is to order thyroid function test, iron panel and A1c as all the tests were performed last year. Additionally, atorvastatin was discontinued and pravastatin 40 mg was started given less risk of muscle weakness as compared to atorvastatin. Her blood pressure was really soft and was recommended to take Lasix every other day and follow-up with cardiology in a week. Follow-up in a week in clinic. 12/23/24: Patient was seen and examined in the clinic today. She reported to have fatigability and generalized weakness with dryness of the mouth and dizziness. Patient reported that she has severe headache and has been having low blood pressure. She followed up with botany laboratory assistant a week ago and he recommended to stop taking diltiazem due to soft blood pressure and continue taking amiodarone and Lasix. Labs showed iron level, thyroid functions and A1c within normal limits. He was recommended to hold on Lasix for a week and prefer oral hydration with restarting Lasix on December 30 as every other day due to currently dehydrated clinical volume status. Patient reported to have improvement in her tingling and numbness with Lyrica and continued to had muscle soreness therefore, B12 and CMP were ordered. Her blood pressure was soft during this visit. Will follow-up with the labs. Patient was also complaining of pain in her knees therefore referral was given for physical therapy at least 3 times a week for 8 weeks and orthopedics referral for evaluation and possible another intra-articular steroid injection. Follow-up in a week. 12/30/24: Patient was seen and examined in the clinic with her today. She came for follow-up of her labs. She also reported to have symptoms of flu with cough associated with phlegm from past 3 days. She reported to have mild chills as well. She has been taking [id number] flu medication. Patient continued to have low blood pressure and appeared dehydrated. Labs were significant for B12 330. CHEM panel was significant for NEHA on CKD with creatinine 1.8 with GFR 31%. Thyroid function and A1c within normal limits. Patient was recommended to hold off on Lasix and follow-up with cook dessert, Dr Alves within a week. She was prescribed with Augmentin 500 mg twice daily renally dose for 5 days for RTI. She reported to have improvement in her numbness and tingling sensation after Lyrica use. IM B12 shot was given and will be continued once every week. Patient is currently waiting for referral for PT and Ortho for knee pain. 02/10/25: Patient came to clinic for follow up. She was complaining of tremors from few weeks and has been taking albuterol inhaler 3 times a week at nighttime. She stated that previous month she received intra-articular steroid injection which helped with her knee joints and has started physical therapy as well. She was confused regarding her medications and therefore, she was provided with list of medications and each medicine was reviewed. Her blood pressure improved from last visits and Horseradish Maker recommeneded to keep hold on lasix as she is clinically dehydrated and due to NEHA. She also reported that her INR jumped up to 4.1 and botany laboratory assistant, Dr. Posadas recommended to hold warfarin and she will be repeating her INR upcoming week. She was advised to cut back on smoking which she has been trying to do currently smoking 3 cigarettes every day. Patient was given IM B12 shots and was recommended to follow-up in next 2 weeks to evaluate for improvement in tremors and clinical status. 02/24/2025: Patient came to the clinic for renal panel and PTH lab work follow-up. She stated that her shortness of breath has improved but she has some mild thrush due to use of inhalers. Her breathing inhalers including rescue inhaler and LABA/LAMA and ICS inhaler was discussed and she was shown a video for proper administration of the inhaler. She was switch to levalbuterol from albuterol due to complaint of tremors. She will also prescribed nystatin swish and swallow for oral thrush. Kidney functions showed BUN 28 and creatinine 2.0 with intact PTH 39. Horseradish Maker, Dr Alves recommended to to monitor kidney functions for now and she will follow-up with the patient with repeat kidney functions and PTH in March 2025. Patient was informed regarding follow-up with cook dessert. Patient's INR has been around [address] Posadas, botany laboratory assistant has been following up with dosage of warfarin and patient is currently holding warfarin. She was given IM B12 shots. Follow-up in 3 weeks. 03/29/2025: Patient was seen in the clinic for follow-up. Patient reported feeling extremely weak and dizzy. Vitals revealed blood pressure 87/59, heart rate 114, respiratory 18 and saturating 97% room air. She has been loosing weight around 61 kg. She stated that she has been drinking atleast 2 bottles of water 1-1.5 L every day. Exam showed clear Breath sounds. Abdomen was soft mild tenderness in Rt Upper quadrant but roa was negative. She had a colonoscopy by GI specialist Dr Mckeon which showed hemorrhoids and erythermatous mucosa in sigmoid colon and biopsies were taken which were negative for dysplasia and microscopic colitis. Anti-trypsin were elevated and MARISOL was positive. Alpha-fetoprotein, anti-smooth were negative. Liver enzymes was slightly elevated. Hep panel was negative. Patient was informed regarding the results. Patient does have a follow-up with Dr. Mckeon on April 09, 2025. Complement including C3 and C4, [id number] DNA were ordered to screen for lupus. Anti-smooth muscle antibodies were not found. Patient was found to have iron deficiency anemia with severe low iron levels and she was informed that he will need IV iron infusion set up. She will benefit with IV iron therapy once for 2 weeks. Feraheme 510 mg x 2 once every week. Will be sending for further processing. Dr. Posadas, botany laboratory assistant was called and informed regarding patient's of blood pressure and Cardizem was decreased to 180 mg CD every day and amiodarone was continued. Patient reported her INR was 4.0 and her warfarin has been adjusted by botany laboratory assistant. She also reported to have pain in both knees and has been getting physical therapy. Patient had a episode of dizziness and was feeling very weak and was suggested to go to the ER for possible IV fluid resuscitation. ER doctor was notified as well for further evaluation. Patient's was at the bedside and she took the patient to the ER. Review of Systems Review of Systems Systems Reviewed: All systems reviewed, normal except as documented Objective/Exam Narrative Physical exam: General: Patient is not in acute distress, answering questions appropriately, making appropriate eye contact. HEENT: Normocephalic, atraumatic, EOMI, PERRLA, dry mucous membrane Cardiac: irregular rate and rhythm, normal S1/S2, systolic murmur grade 3 more on apex. Hypotension. Lungs: Bilateral clear breath sounds heard on auscultation. mild wheezing heard on coughing Abdomen: Soft, mildly tender in right upper quadrant. Roa sign negative., nondistended, positive bowel sounds in all quadrants. No guarding or rebound tenderness. Neurology:Alert and oriented x 3. Cranial nerves II to XII intact and patient able to move all 4 extremities. Extremities: Normal to inspection, no edema, no cyanosis, strong peripheral pulses. Psych: appropriate mood and affect. Assessment & Plan Diagnosis / Problem List (1) Chronic atrial fibrillation: Status: Acute Assessment & Plan: - Patient has a history of chronic atrial fibrillation on warfarin. -She was taking Cardizem CD 240 once a day and amiodarone 100 mg twice daily. Following Dr. Posadas, botany laboratory assistant as outpatient. Plan: - Dose of Cardizem was reduced from 240 mg to 180 CD every day and recommended to continue amiodarone 100 mg twice daily -Continue taking warfarin and being managed by botany laboratory assistant clinic. Recent INR 4.0. Goal of INR 3 per cardiology recs (2) Hypotension: Status: Acute Qualifiers: Hypotension type: hypotension due to drug Qualified Code(s): I95.2 - Hypotension due to drugs Assessment & Plan: -Patient reported feeling extremely weak and dizzy. Vitals revealed blood pressure 87/59, heart rate 114, respiratory 18 and saturating 97% room air. She has been loosing weight around 61 kg. She stated that she has been drinking atleast 2 bottles of water 1-1.5 L every day. Exam showed clear Breath sounds. Abdomen was soft mild tenderness in Rt Upper quadrant but roa was negative.. - She also reported to have pain in both knees and has been getting physical therapy. Plan: -Patient had a episode of dizziness and was feeling very weak and was suggested to go to the ER for possible IV fluid resuscitation. ER doctor was notified as well for further evaluation. Patient's was at the bedside and she took the patient to the ER. - Patient will benefit from IV fluid resuscitation most likely - Dr. Posadas, botany laboratory assistant was called and informed regarding patient's of blood pressure and dose of Cardizem was decreased from 240 to 180 mg CD every day and amiodarone will be continued. Encouraged ongoing hydration. Lasix has been discontinued from last 2 months. -Patient reported her INR was 4.0 and her warfarin has been adjusted by botany laboratory assistant. - She might need another echo for further evaluation -Patient explained that she would need to go the ED as if she fell she has increase risk of bleeding even risk of given shes on warfarin and her INR is 4.0 (3) Iron deficiency: Status: Acute Assessment & Plan: -She had a colonoscopy by GI specialist Dr Mckeon which showed hemorrhoids and erythermatous mucosa in sigmoid colon and biopsies were taken which were negative for dysplasia and microscopic colitis. alpha 1 Antitrypsin were elevated and MARISOL was positive. Alpha-fetoprotein, anti-smooth were negative. Liver enzymes was slightly elevated. Hep panel was negative. Patient was informed regarding the results. Patient does have a follow-up with Dr. Mckeon on April 09, 2025. -Patient was found to have iron deficiency anemia with severe low iron levels and she was informed that he will need IV iron infusion set up. Plan: -She will benefit with IV iron therapy once for 2 weeks. Feraheme 510 mg x 2 once every week. Will be sending paperwork to [facility] for further processing. -Complement including C3 and C4, [id number] DNA were ordered to screen for lupus. Anti-smooth muscle antibodies were not found on system - Patient cannot tolerate oral iron therapy Patient seen and discussed with the pain physician, Dr.Watanakunakorn Dr. Martha MD, PGY 3 Orders: Orders Complement Component C4c* 04/02/25 M32.9 - Systemic lupus erythematosus, unspecified Complement Component C3* 04/02/25 M32.9 - Systemic lupus erythematosus, unspecified DNA (ds) Antibody* 04/02/25 M32.9 - Systemic lupus erythematosus, unspecified Additional Assessment Attending note: I, Edgar Richardson MD, attest that I was physically present for the perez portions of the service and evaluated the patient with the resident and I reviewed and discussed the case with the resident and agree with the resident's findings and plans of care as documented above. Patient recommended to ER due to potential critical nature of preentation. Edgar Richardson MD Advanced Care Planning Advance care planning discussed with:: patient Physician Billing Established Patient Established Patient: E/M Level 4-CPT 33947 Office Procedures [facility] Level of Care Nursing/Assessment Patient Status: Established Patient Nursing Assessment/Reassessment: Medication Reconciliation, Update PMH in EMR and Vital Signs Coordination of Care: Consent,records obtained, informed consent, Education Simp Pt/Fam, Results/Orders obtained and Staff clarify orders Established Patient Charge Established Patient Point Assignment: 65 Established Patient Point Charge: EP Level 3 (80-115)
== END 2025-04-02 14:37 | disposition home or self-care (01) ==
LOC: HODAHC 13:12
PROVIDERS: PCP Student in an Organized Health Care Education/Training Program; Referring Provider Student in an Organized Health Care Education/Training Program; Supervising Provider Internal Medicine; Visit Provider Student in an Organized Health Care Education/Training Program
DX: I48.20 Chronic atrial fibrillation, unspecified (principal); I95.2 Hypotension due to drugs; Z79.01 Long term (current) use of anticoagulants; E61.1 Iron deficiency; M32.9 Systemic lupus erythematosus, unspecified
CPT/HCPCS: 99213; G0463

== ENCOUNTER 2025-04-02 15:03 | Emergency (ER) | payer MEDICARE, SELFPAY ==
--- NOTE | 2025-04-02 15:46 | PC.NURSE ---
Pt did not answer when name was called from the lobby and was not found outside.
--- NOTE | 2025-04-02 19:35 | PC.NURSE ---
NO ANSWER FROM PATIENT
--- NOTE | 2025-04-02 19:40 | PC.NURSE ---
NO ANSWER FROM PATIENT
--- NOTE | 2025-04-02 19:45 | PC.NURSE ---
NO ANSWER FROM PATIENT
== END 2025-04-02 19:49 | disposition left against medical advice (07) ==
PROVIDERS: Emergency Provider Emergency Medicine
DX: Z53.21 Procedure and treatment not carried out due to patient leaving prior to being seen by health care provider (principal)
CPT/HCPCS: 99282

== ENCOUNTER 2025-04-05 07:43 | Inpatient (IN) | payer MEDICARE, SELFPAY ==
[2025-04-05] VITALS (13 sets, daily range): BP systolic 101–127; BP diastolic 57–82; PULSE 64–119; RESP 14–21; TEMP 36.4–36.7; O2SAT 95–99; BMI 23.1
--- NOTE | 2025-04-05 07:50 | EKG_ITS ---
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
--- NOTE | 2025-04-05 08:05 | XR_ITS ---
Examination: AP chest single view Technique: Portable sitting AP chest single view Date and time: April 05, 2025, 0828 hrs., Comparison July 01, 2024. Indications: Onset chest pain today. Findings: Mild heart failure. Moderate enlargement cardiac contour Prominent central pulmonary arteries with significant vascular congestion and early edema at the lung bases, small bilateral pleural effusions Impression: Mild heart failure. Pulmonary artery hypertension.
--- NOTE | 2025-04-05 08:21 | PD.EDWEAK ---
ED Weakness RME/HPI General Chief complaint: Shortness of Breath/Dyspnea Stated complaint: REALLY LOW BP AT HOME WITH HIGH HR & SOB Time Seen by Provider: 04/05/25 08:05 Arrival date/time: 04/05/25 07:43 Limitations: no limitations RME / HPI RME / HPI Narrative: DR. DUGAN MAIN ED EVALUATION: 69-year-old female with past medical history of atrial fibrillation (on amiodarone and warfarin), heart failure, severe mitral valve pathology status post replacement, hypertension, stage 3 chronic kidney disease, COPD (not on home oxygen), pancytopenia, prior CVA with residual vertigo, gastric bypass surgery 20 years ago, and anxiety presents to the Emergency Department accompanied by her with complaint of generalized weakness and concern for hypotension and tachycardia. Patient reports that earlier at home, her blood pressure was 82/68 with a heart rate of 119 bpm. She was recently started on midodrine by her primary care physician. She was sent to the ED previously by her PCP but left AMA on 04/02/2025 for the same problem. She denies vomiting, fevers, chills, or other acute symptoms. She reports new abdominal pain for the past 3 months. She is currently undergoing iron treatment for anemia. Home medications include diltiazem 120 mg, furosemide 20 mg, warfarin 5 mg, amiodarone 100 mg twice a day, propranolol 10 mg, pregabalin 25 mg, and inhalers for her COPD/ asthma. Patient quit smoking two months ago. Allergic to heparin. Related Data Home Medications ?Medication ?Instructions ?Recorded ?Confirmed melatonin 3 mg tablet 3 mg PO HS 11/19/23 04/02/25 umeclidinium 62.5 mcg-vilanterol 1 inh inhalation QDAY PRN 11/19/23 04/02/25 25 mcg/actuation powdr for Dizziness Or Vertigo inhalation (Anoro Ellipta) atorvastatin 80 mg tablet 80 mg PO HS 03/27/25 04/02/25 propranolol 10 mg tablet 10 mg PO QDAY 03/27/25 04/02/25 warfarin 5 mg tablet 7 mg PO QDAY@1200 Atrial 03/27/25 04/02/25 Fibrillation Previous Rx's ?Medication ?Instructions ?Recorded fluticasone propionate 110 1 puff inhalation BID wheezing #12 02/08/24 mcg/actuation HFA aerosol inhaler grams nicotine 7 mg/24 hr daily 1 patch transdermal Q24H #14 ea 11/04/24 transdermal patch pravastatin 40 mg tablet 40 mg PO QHS #90 tabs 12/02/24 pregabalin 25 mg capsule (Lyrica) 25 mg PO QHS #30 caps 12/02/24 furosemide 20 mg tablet 20 mg PO Q OTHER DAY #60 tabs 12/23/24 benzonatate 100 mg capsule 100 mg PO BID PRN cough #30 caps 12/30/24 meloxicam 7.5 mg tablet 7.5 mg PO QDAY #45 tabs 01/23/25 amiodarone 100 mg tablet 100 mg PO BID 3 months #180 tabs 02/03/25 calcitriol 0.25 mcg capsule 0.25 mcg PO QDAY Chronic kidney 02/03/25 Disease #90 caps vitamin B complex-vitamin C-folic 1 tab PO QDAY #90 tabs 02/03/25 acid 0.8 mg tablet (Mica-Mary) levalbuterol HCl 0.63 mg/3 mL 0.63 mg (3 mL) inhalation TID PRN 02/24/25 solution for nebulization shortness of breath or wheezing #90 mL albuterol sulfate 0.63 mg/3 mL 0.63 mg (3 mL) inhalation QID PRN 03/17/25 solution for nebulization wheezing #75 mL cyanocobalamin (vitamin B-12) 1,000 mcg PO QDAY #90 caps 03/17/25 1,000 mcg capsule diltiazem HCl 120 mg 120 mg PO QAM #90 caps 04/03/25 capsule,extended release 24 hr (Cardizem CD) midodrine 5 mg tablet 5 mg PO TID PRN If SBP is below 04/03/25 100 #90 tabs Allergies Allergy/AdvReac Type Severity Reaction Status Date / Time banana Allergy Severe Swelling Verified 04/05/25 07:49 of Lip/Tongue/Throat chicken derived Allergy Severe Hives Verified 04/05/25 07:49 heparin Allergy Severe Unconscious Verified 04/05/25 07:49 Review of Systems Review of Systems Systems Reviewed: All systems reviewed, normal except as documented Past Medical History Past Medical History NEUROLOGIC: Positive Cerebrovascular Accident CARDIAC: Positive Atrial Fibrillation GASTROINTESTINAL: Positive Gastroesophageal Reflux Disease GENITOURINARY: Positive Chronic Kidney Disease MUSCULOSKELETAL: Positive Arthritis Social History SMOKING STATUS: Former smoker SUBSTANCE USE: does not use ALCOHOL: Never ED Exam General Limitations: Present no limitations General appearance: Present alert and in no apparent distress Head Head exam: Present atraumatic, normocephalic and normal inspection Eye Eye exam: Present normal appearance, PERRL and EOMI ENT ENT exam: Present normal exam, normal oropharynx and mucous membranes moist Neck Neck exam: Present normal inspection, full ROM and trachea midline Chest Chest inspection: Present normal inspection and symmetric chest wall rise Respiratory Respiratory exam: Present normal lung sounds bilaterally Cardiovascular Cardiovascular exam: Present regular rate, normal rhythm and normal heart sounds Abdominal Exam Abdominal exam: Present soft and normal bowel sounds Extremities Exam Extremities exam: Present normal inspection and full ROM Back Exam Back exam: Present normal inspection and full ROM Neurological Exam Neurological exam: Present alert, oriented X3 and CN II-XII intact Psychiatric Psychiatric exam: Present normal affect and normal mood Skin Skin exam: Present warm, dry, intact and normal color Course Quality Measures none Orders Category Date Time Status Admit to Inpatient Status Routine Admission 04/05/25 11:43 Active Patient Condition Routine Admission 04/05/25 11:[address] Screening NOW Care 04/05/25 08:29 Active Electrician'S Helper NOW Care 04/05/25 08:05 Active EKG (ED ONLY) *Do not use* NOW Care 04/05/25 07:50 Completed Insert IV NOW Care 04/05/25 08:06 Active Notify provider NEEDED Care 04/05/25 11:43 Active EKG (ED Only) Stat Exams 04/05/25 07:50 Draft US abd aorta screen AAA Stat Exams 04/05/25 08:31 Completed XR chest 1V portable Stat Exams 04/05/25 08:05 Completed B-Type Natriuretic Peptide Stat Lab 04/05/25 08:20 Completed CBC Stat Lab 04/05/25 08:20 Completed Comprehensive Metabolic Panel Stat Lab 04/05/25 08:20 Completed Free T4 (Free Thyroxine) Stat Lab 04/05/25 08:20 Completed Magnesium Stat Lab 04/05/25 08:20 Completed Partial Thromboplastin Time Stat Lab 04/05/25 08:20 Completed Prothrombin Time with INR Stat Lab 04/05/25 08:20 Completed TSH [Thyroid Stimulating Hormone] Stat Lab 04/05/25 08:20 Completed Troponin I Stat Lab 04/05/25 08:20 Completed Urinalysis Stat Lab 04/05/25 08:05 Ordered Amiodarone 150 mg Ivpb [Nexterone Ivpb] Med 04/05/25 08:21 Discontinued 150 mg in 100 ml IV 600 mls/hr Amiodarone 360 mg Ivpb [Nexterone Ivpb] Med 04/05/25 14:30 Active 360 mg in 200 ml IV 16.667 mls/hr Amiodarone 360 mg Ivpb [Nexterone Ivpb] Med 04/05/25 08:30 Active 360 mg in 200 ml IV 33.333 mls/hr Magnesium Sulfate 1 gm Ivpb [Magnesium Sulfate Ivpb] Med 04/05/25 10:14 Discontinued 1 gm in 100 ml IV X1 Code Status Routine Oth 04/05/25 11:43 Ordered Vital Signs Vital signs: Vital Signs Temperature 97.6 F 04/05/25 07:53 Pulse Rate 119 H 04/05/25 07:53 Respiratory Rate 18 04/05/25 07:53 Blood Pressure 101/68 04/05/25 07:53 Pulse Oximetry (%) 99 04/05/25 07:53 Oxygen Delivery Method Room Air 04/05/25 07:53 Weakness MDM Narrative MDM Narrative:: Patient is a 69-year-old female with medical history notable for atrial fibrillation, valve replacement with porcine valve, chronically anticoagulated with warfarin, heart failure, COPD prior smoker that in the emergency department with concerns for weakness, feeling tired, and low blood pressure for the last week. Patient has been measuring her blood pressure at home multiple times, her blood pressure has been as low as the 70s multiple times throughout the day. Patient is on multiple cardiac including diltiazem, propranolol, amiodarone, furosemide. Patient did not take her medications today. Concern for ACS arrhythmia electrolyte abnormality decompensated heart failure, pneumonia, metabolic disturbance, AAA among others. Ordered labs, EKG, chest x-ray as well as abdominal ultrasound. Patient presented in atrial flutter with rapid ventricular response, blood pressure systolic 105, given this ordered amiodarone bolus and drip, especially given that earlier today patient had systolic blood pressure in the 70s to 80s. Labs without any acute hematologic or significant metabolic abnormalities. Patient abdominal ultrasound, without evidence of aneurysm or other abnormality. On reevaluation, patient hemodynamically stable, not in distress. Patient feels significantly better on the amio drip. Discussed case with hospital team kindly accepted patient for admission Rhoda Lee am scribing for and in the presence of Dr. Dugan. Patient data External records reviewed:: [facility] previous records Clinical information provided by:: patient and spouse Social determinants that could affect healthcare access:: other (specify) (Former smoker; patient quit smoking two months ago. ) Patient has the following chronic illnesses:: Atrial fibrillation (on amiodarone and warfarin), heart failure, severe mitral valve pathology status post replacement, hypertension, stage 3 chronic kidney disease, COPD (not on home oxygen), pancytopenia, prior CVA with residual vertigo, gastric bypass surgery 20 years ago, and anxiety. She is currently undergoing iron treatment for anemia. Home medications include diltiazem 120 mg, furosemide 20 mg, warfarin 5 mg, amiodarone 100 mg twice a day, propranolol 10 mg, pregabalin 25 mg, and inhalers for her COPD/ asthma. Allergic to heparin. How is presenting disease/condition affected by chronic disease/condition?: exacerbated by Evaluation data The following diagnostics were reviewed and interpreted by me:: lab results, radiology exam(s) and EKG tracing(s) Lab and/or radiology exams considered but not ordered:: none Interpretation Summary: My interpretation: EKG performed at 0757 hours, atrial flutter, rate 123, normal QT, non specific ST-T wave changes, no cardiac alert Procedure(s): XR chest 1V portable Accession Number(s): [id number] cc: Zhane (ADITI),Vince PENNINGTON; Eliot Sotelo MD; Jeff Thomas MD~ Examination: AP chest single view Technique: Portable sitting AP chest single view Date and time: April 05, 2025, 0828 hrs., Comparison July 01, 2024. Indications: Onset chest pain today. Findings: Mild heart failure. Moderate enlargement cardiac contour Prominent central pulmonary arteries with significant vascular congestion and early edema at the lung bases, small bilateral pleural effusions Impression: Mild heart failure. Pulmonary artery hypertension. Dictated By: Eliot Sotelo MD Medications / Prescriptions Medications or Prescriptions considered but not ordered:: none Medication administrations:: Medication Administration History Amiodarone HCl/Dextrose (Nexterone Ivpb) 360 mg in 200 mls @ 16.667 mls/hr IV .Q12H YASMEEN Stop: 04/06/25 14:29 Amiodarone HCl/Dextrose (Nexterone Ivpb) 360 mg in 200 mls @ 33.333 mls/hr IV .Q6H ONE Stop: 04/05/25 14:29 Last Admin: 04/05/25 09:50 Dose: 33.333 mls/hr Documented By: CHARLENE Discontinued Medications Amiodarone HCl/Dextrose (Nexterone Ivpb) 150 mg in 100 mls @ 600 mls/hr IV .Q10M ONE Stop: 04/05/25 08:30 Last Infusion: 04/05/25 09:49 Dose: Infused Documented By: Admin: 04/05/25 09:38 Dose: 600 mls/hr Documented By: CHARLENE Magnesium Sulfate/Dextrose (Magnesium Sulfate Ivpb) 1 gm in 100 mls @ 100 mls/hr IV X1 ONE Stop: 04/05/25 11:13 see above Consultations Consultation(s) initiated? (list below): Yes Consultation #1 (Physician, Specialty, Details): Discussed test HPI, PMHx, lab, radiology results and/or management with resident working with the hospitalist. Will admit for further evaluation and management. Accepts patient for admission. Time: 11:42 Diagnosis Weakness Differential Diagnosis: other (anemia-related fatigue, medication-induced hypotension, decompensated heart failure, thromboembolic event, and underlying infection) Most likely diagnosis given after review of the tests above:: Atrial fibrillation with rapid ventricular response, hypotension Admission Indicated Admission indicated?: indicated Admission Request Was there a request for admission?: Yes Admission Attestation Admission request attestation: Discussed case with resident team from Hospitalist service regarding admission. Discussed patients ED course, exam findings, labs, and radiology results. The Hospitalist [agrees] to accept the patient for admission. Disposition Plan Disposition Plan: Admit Critical Care Time Critical Care Time Critical Care Time: Yes Total Critical Care Time (min.): 40 Attestation: The high probability of sudden, clinically significant deterioration in the patient?s condition required the highest level of my preparedness to intervene urgently. The services I provided to this patient were to treat and/or prevent clinically significant deterioration. Services included the following: chart data review, reviewing nursing notes and/or old charts, documentation time, wallpaper consultant collaboration regarding findings and treatment options, medication orders and management, direct patient care, vital sign assessments and ordering, interpreting and reviewing diagnostic studies and lab tests. Aggregate critical care time includes only time during which I was engaged in work directly related to the patient?s care, as described above, whether at bedside or elsewhere in the Emergency Department. It did not include time spent performing other reported procedures or the services of residents, students, nurses or physician assistants. Discharge Plan Plan Patient Disposition: Admit Acute Care w/in Hospital Prescriptions/Referrals Prescriptions/Med Rec: No Action pregabalin [Lyrica] 25 mg capsule 25 mg PO QHS Qty: 30 2RF pravastatin 40 mg tablet 40 mg PO QHS Qty: 90 2RF fluticasone propionate 110 mcg/actuation HFA aerosol inhaler 1 puff INHALATION BID Qty: 12 3RF nicotine 7 mg/24 hr patch 24 hour 1 patch transdermal Q24H Qty: 14 0RF furosemide 20 mg tablet 20 mg PO Q OTHER DAY Qty: 60 0RF Rx Instructions: Hold for a week until 12/30 benzonatate 100 mg capsule 100 mg PO BID PRN (Reason: cough) Qty: 30 0RF meloxicam 7.5 mg tablet 7.5 mg PO QDAY Qty: 45 3RF levalbuterol HCl 0.63 mg/3 mL solution for nebulization 0.63 mg inhalation TID PRN (Reason: shortness of breath or wheezing) Qty: 90 1RF albuterol sulfate 0.63 mg/3 mL solution for nebulization 0.63 mg inhalation QID PRN (Reason: wheezing) Qty: 75 1RF cyanocobalamin (vitamin B-12) 1,000 mcg capsule 1,000 mcg PO QDAY Qty: 90 0RF diltiazem HCl [Cardizem CD] 120 mg capsule,extended release 24hr 120 mg PO QAM Qty: 90 0RF midodrine 5 mg tablet 5 mg PO TID PRN (Reason: If SBP is below 100 ) Qty: 90 0RF Rx Instructions: do not give last dose of day after 6PM or within 4 hrs of bedtime amiodarone 100 mg tablet 100 mg PO BID 90 Days Qty: 180 3RF calcitriol 0.25 mcg capsule 0.25 mcg PO QDAY MDD 0.25 mcg Qty: 90 2RF Mica-Mary 0.8 mg tablet 1 tab PO QDAY Qty: 90 2RF melatonin 3 mg Tablet 3 mg PO HS umeclidinium-vilanterol [Anoro Ellipta] 62.5-25 mcg/actuation Blister With Device 1 inh INHALATION QDAY PRN (Reason: Dizziness Or Vertigo) propranolol 10 mg tablet 10 mg PO QDAY atorvastatin 80 mg tablet 80 mg PO HS warfarin 5 mg tablet 7 mg PO QDAY@1200 MDD 5 mg or as directed Referrals: Jeff Thomas MD [Primary Care Provider] - In 1 week Problem List Clinical Impression: Atrial fibrillation with rapid ventricular response, Acute hypotension Patient/Caregiver Discharge Instructions Print Language: Cambodian Stand Alone Forms: [facility] Award Info., Patient Portal Info Letter
[2025-04-05 08:26] LABS: Basophils # (Auto) 0.0 Thou/mm3 (0.0-0.2); Basophils % (Auto) 0 % (0-2.5); Eosinophils # (Auto) 0.2 Thou/mm3 (0.0-0.5); Eosinophils % (Auto) 3 % (0-10); Hematocrit 31.7 % (36.0-46.0); Hemoglobin 10.1 g/dL (12.0-16.0); Immature Granulocytes Auto 0.02 Thou/mm3 (0.00-0.00); Lymphocytes # (Auto) 1.1 Thou/mm3 (1.0-4.8); Lymphocytes % (Auto) 17 % (10-50); Mean Corpuscular HGB Conc 31.9 g/dl (31.0-37.0); Mean Corpuscular Hemoglobin 30.1 pg (25.0-35.0); Mean Corpuscular Volume 94 fL (80-100); Monocytes # (Auto) 0.5 Thou/mm3 (0.0-0.8); Monocytes % (Auto) 8 % (0-12); Neutrophils # (Auto) 4.6 Thou/mm3 (1.8-7.7); Neutrophils % (Auto) 71 % (37-80); Nucleated Red Blood Cell # 0.00 Thou/mm3 (0.00-0.00); Nucleated Red Blood Cell % 0 /100 WBC (0); Platelet Count 227 Thou/mm3 (140-440); RDW Standard Deviation 66.7 fL (36.4-46.3); Red Blood Count 3.36 Miln/mm3 (4.00-5.20); White Blood Count 6.5 Thou/mm3 (3.6-11.0)
--- NOTE | 2025-04-05 08:31 | XR_ITS ---
Examination: Ultrasound abdominal aorta Date and time: November 06, 2024 at 0833 hrs. Indications: Onset abdominal pain chest pain today history atrial fibrillation technique and findings: Transverse sonographic images abdominal aorta Transverse dimension proximal aorta 19 mm mid aorta 16mm distal aorta 4T millimeter right iliac 10 mm left iliac 10 mm Impression: Negative for abdominal aortic aneurysm
[2025-04-05 08:44] LABS: B-Type Natriuretic Peptide 194 pg/mL (0-100)
[2025-04-05 08:48] LABS: Alanine Aminotransferase 76 U/L (10-49); Albumin, Serum 3.6 gm/dL (3.4-4.8); Albumin/Globulin Ratio 1.1 (1.2-2.2); Alkaline Phosphatase 76 U/L (46-116); Anion Gap 8 (7-16); Aspartate Amino Transferase 115 U/L (0-34); BUN/Creatinine Ratio 10 Ratio (12-20); Bilirubin,Total 0.6 mg/dL (0.3-1.2); Blood Urea Nitrogen 16 mg/dL (9-23); Calcium 9.7 mg/dL (8.3-10.6); Calcium (Corrected) 10.0 mg/dL (8.5-10.1); Carbon Dioxide 26.3 mMol/L (20.0-31.0); Chloride 108 mMol/L (98-107); Creatinine (Component) 1.6 mg/dL (0.6-1.3); Estimated Creatinine Clearance 28.7 mL/min (>60); Free T4 (Free Thyroxine) 1.53 ng/dL (0.89-1.76); Globulin 3.2 gm/dL (2.3-3.5); Glucose 95 mg/dL (74-106); Magnesium 1.4 mg/dL (1.6-2.6); Osmolality,Calculated 284 (275-295); Potassium 3.6 mMol/L (3.4-5.1); Sodium 142 mMol/L (136-145); Thyroid Stimulating Hormone 1.27 uIU/mL (0.55-4.78); Total Protein 6.8 gm/dL (5.7-8.2); Troponin I < 0.020 ng/mL (0.0-0.045); eGFR 35 See Note
[2025-04-05 08:57] LABS: INR 4.1 (0.9-1.3); Partial Thromboplastin Time 54.4 Seconds (22.0-36.0)
[2025-04-05 09:24] LABS: Prothrombin Time 40.4 Seconds (9.0-12.2)
[2025-04-05] MEDS: AMIODARONE 150 MG IVPB 150 MG/100 ML BAG 600 MG IV (09:38)
[2025-04-05] MEDS: AMIODARONE 360 MG IVPB 360 MG/200 ML BAG 33.333 MG IV (09:50)
--- NOTE | 2025-04-05 12:20 | ESHP_ITS ---
<Statement entered by Adolph Bowser MD - 04/10/25 07:32> I reviewed above note and agree with findings and plans. I have also personally examined the patient with medicine team and went over assessment and plan with medical team including internal grinder tender and resident physician. <Statement entered by Zack Coffey MD - 04/05/25 19:09> Patient seen and examined at bedside. I discussed and supervised with the internal grinder tender physician who took care of this patient. I personally saw and examined the patient. I agree with most of the assessment and plan. Patient presented with afib w/ RVR, initially unstable although BP improved without requiring electric cardioversion. Patient started on amio infusion protocol, RVR resolved. Patient denies chest pain, SOB, endorses dizziness that improved with amiodarone. INR noted to be supratherapeutic, holding warfarin. Patient sees Dr. Posadas outpatient, consulted. Pending cario recs and echo. Plan of care discussed with attending Dr. Bowser. Zack Coffey MD PGY-2 Documentation for date of: 04/05/25 HPI History of Present Illness Chief complaint: Shortness of Breathe/Dyspnea History of present illness: Mr. Roach is a 69F with history of atrial fibrillation, congestive heart failure, COPD not on oxygen at home, severe mitral valve pathology s/p valve replacement, hypertension, CKD stage III and anxiety presents for dizziness. Pt reports this morning she woke up and felt a little bit lightheaded, which prompted her to checked her blood pressure. BP reading was 82/68 with a HR of 119bpm at home. Her then accompany her to the ER for check up. She denies active chest pain, shortness of breathe, jaw pain, abdominal pain, fever, nausea, diaphoresis, diarrhea, melena, hemoptysis, or loss of consciousness. She reports normal diet with regular bowel movement. She endorses dysuria, but denies CVA tenderness, fever, or suprapubic pain. Of note, She does see a lacquer pin press operator for her a fib, and stated they have been trying to adjust the dosage and frequency of her warfarin based on her INR. She's admitted for a fib rvr. ED Course In the ED, initial vital signs are HR 119, BP 101/68, and 99% on RA. WBC 6.5, Hgb 10.1, PT 40.4, INR 4.1, APTT 54.4. EKG shows a fib rvr with a rate of 123. CXR shows mild heart failure and pulmonary artery hypertension. US Abdominal aorta negative for AAA. She was given 150mg of amiodarone followed by amiodarone drip. Currently rate controlled @ 100bpm. ROS * Constitutional: Resp distress, a/o x 3, denies fever/chills. * GI: Denies nausea, vomiting. * CV: Mitral valve replacement. Denies chest pain or palpitations. * Resp: COPD. Denies SOB, cough * : +dysuria, denies CVA tenderness, suprapubic tenderness. * Neuro: Denies dizziness, no focal deficits. Denies hx of CVA, diminished vision from right eye due to Glaucoma surgery. Past Medical History * Atrial fibrillation * CHF * COPD (not on O2, inhaler QD) * severe mitral valve pathology status post replacement 2016 ([facility]) * Hypertension * CKD Stage III * Anxiety * Osteoarthritis Social History * Lives at home, independent baseline. * Denies alcohol, drug. History of smoking 20 pack years, stopped 2 months ago. Surgical History * Glaucoma R eye (diminished vision) * Gastric bypass in 1999 Allergies * Heparin (reaction is apnea per pt) Home Meds * Diltiazem ER 120mg PO QAM * Warfarin 5mg PO QD * Propanolol 10mg PO QD * Pregabalin 25mg PO QHS * Pravastatin 40mg PO QHS * Meloxican 7.5mg PO QD * Amiodarone 100mg PO BID * Albuterol sulfate 0.63mg/3mL QAM. Past Medical History Past Medical History NEUROLOGIC: Positive Cerebrovascular Accident CARDIAC: Positive Atrial Fibrillation GASTROINTESTINAL: Positive Gastroesophageal Reflux Disease GENITOURINARY: Positive Chronic Kidney Disease MUSCULOSKELETAL: Positive Arthritis Social History SMOKING STATUS: Former smoker SUBSTANCE USE: does not use ALCOHOL: Never Exam Vital Signs Temp Pulse Resp BP Pulse Ox O2 Del Method 97.8 F 107 H 16 124/78 97 Room Air 04/05/25 10:53 04/05/25 10:53 04/05/25 10:53 04/05/25 10:53 04/05/25 10:53 04/05/25 10:53 Narrative Exam General: Well appearing, well nourished, in no distress. Oriented x 3, normal mood and affect . Ambulating without difficulty. Skin: Good turgor, no rash, unusual bruising or prominent lesions Heart: No cardiomegaly or thrills; irregular rate and rhythm, no murmur or gallop Lungs: Clear to auscultation and percussion. No rales, wheeze, or rhonchi Abdomen: Bowel sounds normal, no tenderness, organomegaly, masses, or hernia Back: Spine normal without deformity or tenderness, no CVA tenderness Extremities: No amputations or deformities, cyanosis, edema or varicosities, peripheral pulses intact Psychiatric: Oriented X3, intact recent and remote memory, judgment and insight, normal mood and affect. Results: Labs 04/05/25 08:20 04/05/25 08:20 Labs: Short CBC 04/05/25 Range/Units 08:20 WBC 6.5 (3.6-11.0) Thou/mm3 Hgb 10.1 L (12.0-16.0) g/dL Hct 31.7 L (36.0-46.0) % Plt Count 227 (140-440) Thou/mm3 BMP 04/05/25 08:20 Sodium 142 Potassium 3.6 Chloride 108 H Carbon Dioxide 26.3 BUN 16 Creatinine 1.6 H Glucose 95 Calcium 9.7 Cardiac Enzymes 04/05/25 Range/Units 08:20 Troponin I < 0.020 (0.0-0.045) ng/mL Liver Function 04/05/25 Range/Units 08:20 Total Bilirubin 0.6 (0.3-1.2) mg/dL AST 115 H (0-34) U/L ALT 76 H (10-49) U/L Alkaline Phosphatase 76 (46-116) U/L Albumin 3.6 (3.4-4.8) gm/dL Quality Measures Quality Measures VTE prophylaxis Advance care planning discussed with:: patient Medications Home Medications and Allergies Home Medications ?Medication ?Instructions ?Recorded ?Confirmed ?Type melatonin 3 mg tablet 3 mg PO HS 11/19/23 04/05/25 History umeclidinium 62.5 mcg-vilanterol 1 inh inhalation QDAY PRN 11/19/23 04/02/25 History 25 mcg/actuation powdr for Dizziness Or Vertigo inhalation (Anoro Ellipta) atorvastatin 80 mg tablet 80 mg PO HS 03/27/25 5 History propranolol 10 mg tablet 10 mg PO QDAY 03/27/2504/05 History warfarin 5 mg tablet 7 mg PO QDAY@1200 Atrial 04/05/25 History Fibrillation Allergies Allergy/AdvReac Type Severity Reaction Status Date / Time banana Allergy Severe Swelling Verified 04/05/25 14:16 of Lip/Tongue/Throat chicken derived Allergy Severe Hives Verified 04/05/25 14:16 heparin Allergy Severe Unconscious Verified 04/05/25 14:16 rice Allergy Intermediate CHOKES Verified 04/05/25 14:16 Visit Medications Amiodarone HCl/Dextrose (Nexterone Ivpb) 360 mg in 200 mls @ 16.667 mls/hr IV .Q12H YASMEEN Stop: 04/06/25 14:29 Amiodarone HCl/Dextrose (Nexterone Ivpb) 360 mg in 200 mls @ 33.333 mls/hr IV .Q6H ONE Stop: 04/05/25 14:29 Last Admin: 04/05/25 09:50 Dose: 33.333 mls/hr Discontinued Medications Amiodarone HCl/Dextrose (Nexterone Ivpb) 150 mg in 100 mls @ 600 mls/hr IV .Q10M ONE Stop: 04/05/25 08:30 Last Infusion: 04/05/25 09:49 Dose: Infused Magnesium Sulfate/Dextrose (Magnesium Sulfate Ivpb) 1 gm in 100 mls @ 100 mls/hr IV X1 ONE Stop: 04/05/25 11:13 Assessment & Plan Plan 69F with history of atrial fibrillation, congestive heart failure, COPD not on oxygen at home, severe mitral valve pathology s/p valve replacement, hypertension, CKD stage III, and anxiety admitted for a fib rvr. Currently on amiodarone drip, rate controlled. Pending cardiology consult. Pharmacy to dose warfarin. #A fib rvr Hx of a fib on amiodarone 100mg PO BID and diltiazem 120mg PO QAM. Initial EKG in ED shows a fib rvr at a rate of 123. - Pending cardiology consult, appreciate recs - Continue amiodarone drip (360mg in 200ml @ rate of 16.667mls/hr) - Cardiac monitoring #Supratheraputic INR Initial INR 4.1. Pt states she has been taking her warfarin as instructed. No signs of bleeding noted on pt. - Pharmacy to dose warfarin - Daily INR - Vitamin K if need of reversal, consider PCC or FFP if acutely bleeding. - Bleeding precaution #CHF, likely from pulmonary hypertension Hx of CHF, Echo from 11/19/23 shows Normal LV size. Low normal function. Dyskinetic mid anterior septal. Flattened septal due to RV pressure and volume overload. Estimated EF 50%, RV moderately dilated. Severe dysfunction. RVSP 65 mmHg. Severe PAH. Severe biatrial dilatation. An aneurysm of the interatrial septum is present. Mitral valve is moderately stenosis , mean gradient 8mmHg. Severely decreased mobility of the posterior mitral valve leaflet. Moderate mitral regurgitation. Moderate to severe TR. Mild pulmonic regurgitation. IVC mildly dilated. Pt reports her doctor took her off lasix 20mg. Initial BNP 194 in ED. 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 Normal hepatopedal portal venous flow. Patent IVC. Alpha-1-AT on 03/16/25 shows 257 (positive) - Continue trending LFTs - Monitor for pt's symptoms - Outpt gen surg follow up for cholelithiasis #CKD Stage III Chronic medical problem. Baseline Cr 1.8 - Continue outpt nephrology follow up - Monitor urine output - Daily labs, monitor chemistry - Renal dose med, avoid nephrotoxin - Caution with contrast or offending mediations #COPD, likely from chronic smoking Chronic medical problem. Do not use oxygen at home. Saturates well at baseline. - Continue home medication albuterol sulfate 0.63mg/3mL NEEDED ?? - Supplemental O2 as needed #Chronic anemia, likely anemia of chronic disease Baseline Hgb 10.6. Iron panels from 03/16/25 shows Iron 8, TIBC 235, Iron Sat 3, Ferritin 381. - Treat underlying illness - Continue outpt follow up with PCP Dispo: Tele DVT prophylaxis: SCDs GI prophylaxis: Protonix 40 Diet: Renal diet Lines: Peripheral IV Code status: Full code Case discussed with my senior resident Dr. Coffey Case discussed with my attending Dr. Niels Ramos, PGY 1
[2025-04-05 12:33] LABS: Collection Type, Urine Clean Catch
[2025-04-05 12:50] LABS: Bilirubin,Urine Negative (Negative); Blood,Urine 1+ (Negative); Clarity,Urine Clear (Clear/Hazy); Color,Urine Lt-Yellow (Lt Yel-Yel); Glucose, Urine Negative (Negative); Ketones,Urine Negative (Negative); Leukocyte Esterase,Urine Negative (Negative); Nitrite,Urine Negative (Negative); PH,Urine 6.0 (5.0-7.0); Protein,Urine 1+ (Neg - Trace); RBC,Urine 1 /hpf (0-3); Specific Gravity,Urine 1.012 (1.001-1.035); Squamous Epithelial Cell,Urine 9 /hpf (0-5); Urobilinogen,Urine Negative mg/dL (0.0-1.0); WBC,Urine 3 /hpf (0-5)
--- NOTE | 2025-04-05 13:03 | ECHO_ITS ---
Transthoracic Echo Report Ht (in): 64 Wt (lb): 135 Exam Location: Echo Lab Status: Inpatient Legal Office Administrator: Lindy Hidalgo Indications: Procedure Performed: BP: 117 / 63 HR: 89 Technical Quality: Technically difficult study MEASUREMENTS (Male / Female) Normal Values 2D ECHO LV Diastolic Diameter PLAX 5.2 cm 4.2 - 5.9 / 3.9 - 5.3 cm LV Systolic Diameter PLAX 4.3 cm IVS Diastolic Thickness 0.7 cm 0.6 - 1.0 / 0.6 - 0.9 cm LVPW Diastolic Thickness 0.8 cm 0.6 - 1.0 / 0.6 - 0.9 cm LV Relative Wall Thickness 0.3 LVOT Diameter 1.8 cm Aortic Root Diameter 2.6 cm LA Systolic Diameter LX 3.9 cm 3.0 - 4.0 / 2.7 - 3.8 cm LV Ejection Fraction MOD 4C 41.1 % LV Cardiac Index MOD 4C 1498.4 cm?/min?m? LV Ejection Fraction 4C AL 42.6 % LV Cardiac Index 4C AL 1598.0 cm?/min?m? LV Ejection Fraction MOD 2C 32.7 % LV Cardiac Index MOD 2C 1333.1 cm?/min?m? LV Ejection Fraction 2C AL 32.2 % LV Cardiac Index 2C AL 1322.7 cm?/min?m? LA Volume Index 38.6 cm?/m? 16 - 28 cm?/m? M-MODE Aortic Root Diameter MM 2.6 cm LA Systolic Diameter MM 4.6 cm LA Ao Ratio MM 1.8 AV Cusp Separation MM 1.8 cm DOPPLER AV Peak Velocity 108.0 cm/s AV Peak Gradient 4.7 mmHg AV Mean Gradient 2.0 mmHg AV Velocity Time Integral 22.2 cm LVOT Peak Velocity 96.1 cm/s LVOT Peak Gradient 3.7 mmHg LVOT Velocity Time Integral 18.9 cm LVOT Cardiac Index 2564.6 cm?/min?m? AV Area Cont Eq vti 2.2 cm? AV Area Cont Eq pk 2.3 cm? MV Peak Velocity 205.0 cm/s MV Peak Gradient 16.8 mmHg MV Mean Velocity 139.0 cm/s MV Mean Gradient 9.0 mmHg MR Peak Velocity 366.0 cm/s MR Peak Gradient 53.6 mmHg LV E' Lateral Velocity 3.7 cm/s LV E' Septal Velocity 3.9 cm/s TR Peak Velocity 260.3 cm/s TR Peak Gradient 27.1 mmHg PV Peak Velocity 81.4 cm/s PV Peak Gradient 2.7 mmHg FINDINGS Left Ventricle Normal left ventricular size and wall thickness. Normal left ventricular diastolic filling pattern for age. The ejection fraction is visually estimated at 40-45 %. Global left ventricular systolic function is mildly decreased. Right Ventricle The right ventricle is normal in size and systolic function. The estimated right ventricular systolic pressure, 54 mmHg. RAP 15. Left Atrium Mildly increased left atrial volume 38.6 mL/m?. Right Atrium The right atrium is normal by two-dimensional imaging, color flow and Doppler imaging with no structural abnormalities, no thrombus formation present. Atrial Septum The interatrial septum appears normal with no evidence of a shunt. Aorta The aorta is normal by two-dimensional, color flow and Doppler interrogation. Mitral Valve Unknown mitral valve prosthesis type. Moderate mitral valve stenosis. [id number] mitral regurgitation. Tricuspid Valve The tricuspid valve is normal by two-dimensional, color flow and Doppler interrogation. There is mild to moderate tricuspid valve regurgitation. Pulmonic Valve The pulmonic valve is not well visualized. There is no significant pulmonic valve regurgitation. Vessels Dilated inferior vena cava. Pericardium The pericardium is normal by two-dimensional imaging. There is no significant pericardial effusion. CONCLUSIONS Indication: CHF, afib RVR Normal LV size and wall thickness.The ejection fraction is visually estimated at 40-45 %. Global left ventricular systolic function is mildly decreased. The RV is normal in size and systolic function. The estimated RVSP, 45 mm hg Dilated left atrium. Evidence of mechanical mitral valve bioprosthetic valve with mild stenosis. Mean gradient 9 mmHg Mitral apparatus showed thickening calcification. Normal aortic valve. No evidence of pericardial effusion. Francoise May (Electronically Signed) Final Date: 06 April 2025 17:36
[2025-04-05] MEDS: PANTOPRAZOLE 40 MG TABLET PO (14:54)
--- NOTE | 2025-04-05 15:16 | ESCONSULT_ITS ---
<Statement entered by Amaris Posadas MD - 04/08/25 12:56> I personally examined the patient was very well-known to me alongside history of aortic valve replacement chronic atrial fibrillation difficult rate control running low blood pressure on diltiazem came to the hospital with rapid heart rate atrial fibrillation and low blood pressure readings. Feeling little better but still has a lot of palpitations atrial fibrillation rapid rate IV amiodarone was given but patient has a chronic persistent permanent A-fib amiodarone probably has no role. Evaluated the patient with resident physician agree with treatment plan recommendation. Recommendation is to stop amiodarone titrate diltiazem dose upwards to 60 mg every 6 hours for rate control and and INR ratio to be followed closely with warfarin dosing. Once rate is controlled well if she feels well we can discharge her home in a day or 2. Evaluated patient with PGY 2 Dr. Julien agree with the treatment plan recommendations all essential component the consultation report is reviewed by me personally. HPI Data of Consult Requesting Physician: Adolph Bowser MD Admitting Provider: Adolph Bowser MD Attending Provider: Adolph Bowser MD Primary Care Provider: Jeff Thomas MD Consult Narrative History of present illness: Ms. Roach is a 69-year-old female with past medical history significant for chronic A-fib on warfarin, HFpEF with an EF of 50%, CKD stage III, COPD not on home oxygen, history of CVA, severe mitral stenosis status post mitral valve replacement in 1999 at [facility], hypertension and anxiety presented to the ED complaining of palpitations and dizziness. Patient was initially diagnosed with A-fib in 2000 and was rate controlled for many years until recently patient has been struggling with rate control agents. Patient states that for the last 6 months patient has been having dizziness and hypotension with systolic blood pressure sometimes running in the 70s. Patient also has been having a lot of shortness of breath and orthopnea recently. Patient states that because of low blood pressure her primary care was trying to adjust the dose of amiodarone and diltiazem which would cause her to go into A-fib with RVR and lead to severe palpitations and dizziness. Patient was started on midodrine 5 mg 3 times a day however patient only was able to take that for a day and continued to have dizziness and low blood pressure which prompted her to come to the emergency room. Otherwise patient denies any chest pain or pressure. Although patient was having shortness of breath when her blood pressure would be low patient attributed her symptoms to low iron levels as told by her primary. Patient denied any swelling of her lower extremities or PND. Cardiology is consulted for A-fib with RVR and hypotension. PMH: chronic A-fib on warfarin, HFpEF with an EF of 50%, CKD stage III, COPD not on home oxygen, history of CVA, severe mitral stenosis status post mitral valve replacement in 1999 at [facility], hypertension and anxiety PSH: Mitral valve replacement surgery, gastric bypass surgery in 1999, glaucoma surgery SH: Patient denies any alcohol, or drug use. Patient has 20 pack year smoking history but quit in January 2025 Home meds: Amiodarone 100 mg bid, diltiazem 120 mg daily, warfarin 7 mg daily, midodrine 5 mg 3 times daily as needed, propranolol 10 mg daily, meloxicam 7.5 mg daily, melatonin 3 mg at bedtime, furosemide 20 mg q. OD, Calcitrol 0.25 mcg daily, atorvastatin 80 mg at bedtime, albuterol inhaler cc:: cc: Adolph Bowser MD Review of Systems Review of Systems Systems Reviewed: All systems reviewed, normal except as documented Exam Vital Signs Temp Pulse Resp BP Pulse Ox O2 Del Method 97.8 F 108 H 21 H 102/57 L 97 Room Air 04/05/25 14:59 04/05/25 14:59 04/05/25 14:59 04/05/25 14:59 04/05/25 14:59 04/05/25 14:59 Narrative Exam GENERAL: A&Ox3 . elderly female, well groomed, cooperative, pleasantly conversational, Not in acute distress NEURO: no focal neurological deficits noted HEENT: Atraumatic, Normocephalic. mucous membranes moist. Eyes open, symmetrical, & clear HEART: irregular rate and rhythm, no murmurs or gallops noted LUNGS: Clear to auscultation with no wheezing or crackles. ABDOMEN: soft, non-distended, non-tender, bowel sounds heard, no guarding or rebound tenderness SKIN: No Rash or ecchymoses EXTREMITIES: No edema, tenderness, able to move all 4 extremities, pedal pulses palpated Results Labs 04/05/25 08:20 04/05/25 08:20 Labs: Short CBC 04/05/25 Range/Units 08:20 WBC 6.5 (3.6-11.0) Thou/mm3 Hgb 10.1 L (12.0-16.0) g/dL Hct 31.7 L (36.0-46.0) % Plt Count 227 (140-440) Thou/mm3 BMP 04/05/25 08:20 Sodium 142 Potassium 3.6 Chloride 108 H Carbon Dioxide 26.3 BUN 16 Creatinine 1.6 H Glucose 95 Calcium 9.7 Cardiac Enzymes 04/05/25 Range/Units 08:20 Troponin I < 0.020 (0.0-0.045) ng/mL Liver Function 04/05/25 Range/Units 08:20 Total Bilirubin 0.6 (0.3-1.2) mg/dL AST 115 H (0-34) U/L ALT 76 H (10-49) U/L Alkaline Phosphatase 76 (46-116) U/L Albumin 3.6 (3.4-4.8) gm/dL Urine 04/05/25 Range/Units 12:24 Urine Color Lt-Yellow (Lt Yel-Yel) Urine Clarity Clear (Clear/Hazy) Urine pH 6.0 (5.0-7.0) Ur Specific Walsh 1.012 (1.001-1.035) Urine Protein 1+ A (Neg - Trace) Urine Glucose (UA) Negative (Negative) Quality Measures Quality Measures none Advance care planning discussed with:: patient Medications Home Medications and Allergies Home Medications ?Medication ?Instructions ?Recorded ?Confirmed ?Type melatonin 3 mg tablet 3 mg PO HS 11/19/23 04/05/25 History umeclidinium 62.5 mcg-vilanterol 1 inh inhalation QDAY PRN 11/19/23 04/02/25 History 25 mcg/actuation powdr for Dizziness Or Vertigo inhalation (Anoro Ellipta) atorvastatin 80 mg tablet 80 mg PO HS 03/27/25 5 History propranolol 10 mg tablet 10 mg PO QDAY 03/27/2504/05 History warfarin 5 mg tablet 7 mg PO QDAY@1200 Atrial 04/05/25 History Fibrillation Allergies Allergy/AdvReac Type Severity Reaction Status Date / Time banana Allergy Severe Swelling Verified 04/05/25 14:16 of Lip/Tongue/Throat chicken derived Allergy Severe Hives Verified 04/05/25 14:16 heparin Allergy Severe Unconscious Verified 04/05/25 14:16 rice Allergy Intermediate CHOKES Verified 04/05/25 14:16 Visit Medications Amiodarone HCl/Dextrose (Nexterone Ivpb) 360 mg in 200 mls @ 16.667 mls/hr IV .Q12H YASMEEN Stop: 04/06/25 14:29 Magnesium Sulfate (Magnesium Sulfate Ivpb) 4 gm in 50 mls @ 12.5 mls/hr IV X1 ONE Stop: 04/05/25 17:08 Melatonin (Melatonin 3 Mg Tablet) 3 mg PO HS YASMEEN Stop: 05/05/25 20:59 Pharmacy Consult (Pharmacy To Dose Warfarin) 1 each PO QDAY PRN PRN Reason: PROTOCOL Stop: 05/06/25 08:59 Discontinued Medications Amiodarone HCl/Dextrose (Nexterone Ivpb) 150 mg in 100 mls @ 600 mls/hr IV .Q10M ONE Stop: 04/05/25 08:30 Last Infusion: 04/05/25 09:49 Dose: Infused Amiodarone HCl/Dextrose (Nexterone Ivpb) 360 mg in 200 mls @ 33.333 mls/hr IV .Q6H ONE Stop: 04/05/25 14:29 Last Admin: 04/05/25 09:50 Dose: 33.333 mls/hr Magnesium Sulfate/Dextrose (Magnesium Sulfate Ivpb) 1 gm in 100 mls @ 100 mls/hr IV X1 ONE Stop: 04/05/25 11:13 Pantoprazole Sodium (Pantoprazole 40 Mg Tablet) 40 mg PO X1 ONE Stop: 04/05/25 12:59 Last Admin: 04/05/25 14:54 Dose: 40 mg Assessment & Plan Plan Ms. Roach is a 69-year-old female with past medical history significant for chronic A-fib on warfarin, HFpEF with an EF of 50%, CKD stage III, COPD not on home oxygen, history of CVA, severe mitral stenosis status post mitral valve replacement in 1999 at [facility], hypertension and anxiety presented to the ED complaining of palpitations and dizziness. Cardiology is consulted for A-fib with RVR and hypotension. #Chronic A-fib with RVR #HFpEF, EF 50% #Severe PAH #Hypotension, new onset -Patient presented to the ED complaining of palpitations for several days which has progressively worsened. Patient's A-fib medications have been readjusted several times due to hypotension however patient continues to go into A-fib with RVR. Patient was initially diagnosed with A-fib in 2000 EKG shows A-fib with rate of 123, QTc 535 Chest Xray: Moderate enlargement cardiac contour, Pulmonary artery hypertension. Echo from 12/01 : Normal LV size. Low normal function. Dyskinetic mid anterior septal. Flattened septal due to RV pressure and volume overload. Estimated EF 50% RV moderately dilated. Severe dysfunction. RVSP 65 mmHg. Severe PAH Severe biatrial dilatation. An aneurysm of the interatrial septum is present. Mitral valve is moderately stenosis , mean gradient 8mmHg. Severely decreased mobility of the posterior, mitral valve leaflet. Moderate mitral regurgitation, Moderate to severe TR. Mild pulmonic regurgitation, IVC mildly dilated. [id number] score-4 Has-bled score 4 Plan: - Patient was initially started on amiodarone drip and continues to be in RVR with soft blood pressure. - Discontinue amiodarone drip as patient has chronic A-fib therefore amiodarone would be ineffective. -Will increase midodrine to 10 mg 3 times daily -Recommend starting loading dose digoxin of 0.25 x 1 and Digoxin 0.123 mcg daily -Recommend Diltiazem 60mg Q6H (will titrate up as BP is tolerating if pt remains in RVR) -Pt is not in decompensated HF therefore hold lasix for now due to hypotension -Pt's INR is 4.1, no signs of active bleeding. Recommend pharmacy dosing -Repeat echo pending -Avoid QT prolongation agents #CKD Stage III #Chronic anemia, likely anemia of chronic disease #COPD, likely from chronic smoking #Elevated LFTs, likely from primary hepatocellular disease vs alpha-1-AT #Asymptomatic cholelithiasis -management as per primary team Thank you for the consult and allowing us to participate in the care of the patient. Cardiology will continue to follow. Assessment and plan discussed with my attending gas leak tester Dr. Cuauhtemoc Julien (PGY-2)- Internal medicine resident
--- NOTE | 2025-04-05 18:25 | PC.NURSE ---
PATIENT IV INFILTRATED. IV REMOVED AND ALL PIECES ACCOUNTED FOR.
[2025-04-05] MEDS: DILTIAZEM 30 MG TABLET 60 MG PO ×2 (18:59→23:03)
[2025-04-05] MEDS: DIGOXIN 0.125 MG TABLET 0.25 MG PO (19:00)
--- NOTE | 2025-04-05 19:36 | PC.NURSE ---
REPORT CALLED AND GIVEN TO [place].
[2025-04-05] MEDS: Magnesium Sulfate 4 GM Ivpb 4 GM/50 ML BAG IV (20:21)
[2025-04-05] MEDS: MELATONIN 3 MG TABLET PO (20:21)
[2025-04-06] VITALS (16 sets, daily range): BP systolic 90–125; BP diastolic 51–79; PULSE 54–92; RESP 17–20; TEMP 36–36.6; O2SAT 96–99; BMI 22.7
[2025-04-06] MEDS: DILTIAZEM 30 MG TABLET 60 MG PO ×4 (05:16→23:49)
[2025-04-06] MEDS: MIDODRINE 5 MG TABLET 10 MG PO ×3 (05:16→21:10)
[2025-04-06 06:06] LABS: Basophils # (Auto) 0.0 Thou/mm3 (0.0-0.2); Basophils % (Auto) 0 % (0-2.5); Eosinophils # (Auto) 0.1 Thou/mm3 (0.0-0.5); Eosinophils % (Auto) 3 % (0-10); Hematocrit 29.0 % (36.0-46.0); Hemoglobin 9.4 g/dL (12.0-16.0); Immature Granulocytes Auto 0.04 Thou/mm3 (0.00-0.00); Lymphocytes # (Auto) 0.9 Thou/mm3 (1.0-4.8); Lymphocytes % (Auto) 17 % (10-50); Mean Corpuscular HGB Conc 32.4 g/dl (31.0-37.0); Mean Corpuscular Hemoglobin 30.2 pg (25.0-35.0); Mean Corpuscular Volume 93 fL (80-100); Monocytes # (Auto) 0.4 Thou/mm3 (0.0-0.8); Monocytes % (Auto) 8 % (0-12); Neutrophils # (Auto) 3.8 Thou/mm3 (1.8-7.7); Neutrophils % (Auto) 72 % (37-80); Nucleated Red Blood Cell # 0.00 Thou/mm3 (0.00-0.00); Nucleated Red Blood Cell % 0 /100 WBC (0); Platelet Count 210 Thou/mm3 (140-440); RDW Standard Deviation 65.1 fL (36.4-46.3); Red Blood Count 3.11 Miln/mm3 (4.00-5.20); White Blood Count 5.3 Thou/mm3 (3.6-11.0)
[2025-04-06 06:21] LABS: INR 3.2 (0.9-1.3)
[2025-04-06 06:22] LABS: Alanine Aminotransferase 68 U/L (10-49); Albumin, Serum 3.2 gm/dL (3.4-4.8); Albumin/Globulin Ratio 1.1 (1.2-2.2); Alkaline Phosphatase 71 U/L (46-116); Anion Gap 10 (7-16); Aspartate Amino Transferase 104 U/L (0-34); BUN/Creatinine Ratio 10 Ratio (12-20); Bilirubin,Total 0.4 mg/dL (0.3-1.2); Blood Urea Nitrogen 14 mg/dL (9-23); Calcium 9.2 mg/dL (8.3-10.6); Calcium (Corrected) 9.8 mg/dL (8.5-10.1); Carbon Dioxide 28.2 mMol/L (20.0-31.0); Chloride 106 mMol/L (98-107); Creatinine (Component) 1.4 mg/dL (0.6-1.3); Estimated Creatinine Clearance 32.7 mL/min (>60); Globulin 2.9 gm/dL (2.3-3.5); Glucose 83 mg/dL (74-106); Magnesium 2.8 mg/dL (1.6-2.6); Osmolality,Calculated 286 (275-295); Phosphorous 2.6 mg/dL (2.4-5.1); Potassium 3.2 mMol/L (3.4-5.1); Sodium 144 mMol/L (136-145); Total Protein 6.1 gm/dL (5.7-8.2); eGFR 41 See Note
[2025-04-06 06:41] LABS: Prothrombin Time 31.9 Seconds (9.0-12.2)
[2025-04-06] MEDS: DIGOXIN 0.125 MG TABLET PO (08:08)
[2025-04-06] MEDS: POTASSIUM CHL 10 mEq IVPB 10 MEQ/100 ML BAG 100 MEQ IV (08:09)
--- NOTE | 2025-04-06 09:12 | ESPR_ITS ---
<Statement entered by Adolph Bowser MD - 04/11/25 12:37> I reviewed above note and agree with findings and plans. I have also personally examined the patient with medicine team and went over assessment and plan with medical team including human resource internship and resident physician. <Statement entered by Jeff Thomas MD - 04/06/25 14:59> Patient was seen and examined at the bedside. No acute overnight events. Patient was started on Cardizem 60 mg Q6 hourly and digoxin 0.25 mcg once daily per cardiology recommendation. Heart rate has been controlled however patient went bradycardic up to 17 bpm. There is a concern for tachybradycardia syndrome and cardiology team will be thinking about placing pacemaker. Awaiting further recommendations. Patient is also currently pending on echocardiogram. Given IV iron therapy today and tomorrow due to severely low iron/iron deficiency anemia. Amiodarone was discontinued. Potassium was repleted with 40 mEq x 1. MiraLAX and senna was ordered due to constipation related to IV iron therapy. All labs and orders were reviewed. I discussed and supervised with the human resource internship physician who took care of this patient. I personally saw and examined the patient. I agree with most of the assessment and plan. Disclaimer: Despite multiple revisions, due to the dictation software being used, the document bellow may not be free of grammatical errors including phonetic/typographic errors. However, this does not deter from our commitment to providing health care in the patient's best interest in mind. Plan of care discussed with attending Physician Dr. Niels Thomas MD PGY-3 Documentation for date of: 04/06/25 Subjective Subjective Interval history: No overnight events. Evaluated at bedside. INR this morning 3.2, no ecchymosis or bleeding from IV site, pharymacy continue to dose warfarin. Per cardiology, discontinued amiodarone drip,increase midodrine to 10 mg TID, started loading dose digoxin of 0.25 x 1 and Digoxin 0.123 mcg daily, started Diltiazem 60mg Q6H, hold lasix. Pending echo. Downgrade to [facility]. Exam Vital Signs Temp Pulse Resp BP Pulse Ox O2 Del Method 97.0 F 89 18 117/63 98 Room Air 04/06/25 08:00 04/06/25 08:08 04/06/25 08:00 04/06/25 08:08 04/06/25 08:00 04/06/25 08:00 Narrative Exam General: Well appearing, well nourished, in no distress. Oriented x 3, normal mood and affect . Ambulating without difficulty. Skin: Good turgor, no rash, unusual bruising or prominent lesions Heart: No cardiomegaly or thrills; irregular rate and rhythm, no murmur or gallop Lungs: Clear to auscultation and percussion. No rales, wheeze, or rhonchi Abdomen: Bowel sounds normal, no tenderness, organomegaly, masses, or hernia Back: Spine normal without deformity or tenderness, no CVA tenderness Extremities: No amputations or deformities, cyanosis, edema or varicosities, peripheral pulses intact Psychiatric: Oriented X3, intact recent and remote memory, judgment and insight, normal mood and affect. Objective Labs 04/06/25 05:43 04/06/25 05:43 Labs: Laboratory Results - last 24 hr 04/05/25 04/05/25 04/06/25 08:20 12:24 05:43 WBC 6.5 5.3 RBC 3.36 L 3.11 L Hgb 10.1 L 9.4 L Hct 31.7 L 29.0 L MCV 94 93 MCH 30.1 30.2 MCHC 31.9 32.4 RDW Std Deviation 66.7 H 65.1 H Plt Count 227 210 Neut % (Auto) 71 72 Lymph % (Auto) 17 17 [place] % (Auto) 8 8 Eos % (Auto) 3 3 Baso % (Auto) 0 0 Neut # (Auto) 4.6 3.8 Lymph # (Auto) 1.1 0.9 L [place] # (Auto) 0.5 0.4 Eos # (Auto) 0.2 0.1 Baso # (Auto) 0.0 0.0 Immature Gran # (Auto) 0.02 H 0.04 H Absolute Nucleated RBC 0.00 0.00 Immature Gran % 0 1 H Nucleated RBC % 0 0 PT 40.4 H* D 31.9 H* D INR 4.1 H* 3.2 H APTT 54.4 H Sodium 144 Potassium 3.2 L Chloride 106 Carbon Dioxide 28.2 Anion Gap 10 BUN 14 Creatinine 1.4 H Estim Creat Clear Calc 32.7 L eGFR 41 L BUN/Creatinine Ratio 10 L Glucose 83 Calculated Osmolality 286 Calcium 9.2 Corrected Calcium 9.8 Phosphorus 2.6 Magnesium 2.8 H Total Bilirubin 0.4 AST 104 H ALT 68 H Alkaline Phosphatase 71 Total Protein 6.1 Albumin 3.2 L Globulin 2.9 Albumin/Globulin Ratio 1.1 L Ur Collection Type Clean Catch Urine Color Lt-Yellow Urine Clarity Clear Urine pH 6.0 Ur Specific [place] 1.012 Urine Protein 1+ A Urine Glucose (UA) Negative Urine Ketones Negative Urine Blood 1+ A Urine Nitrite Negative Urine Bilirubin Negative Urine Urobilinogen (Auto) Negative Ur Leukocyte Esterase Negative Urine RBC 1 Urine WBC 3 Ur Squamous Epith Cells 9 H Urine Bacteria None Quality Measures Quality Measures VTE prophylaxis Advance care planning discussed with:: patient Assessment & Plan Assessment Current Active Medications: Generic Name Dose Route Start Last Admin Trade Name Freq PRN Reason Stop Dose Admin Digoxin 0.125 mg 04/06/25 09:00 04/06/25 08:08 Digoxin 0.125 Mg Tablet PO 05/06/25 08:59 0.125 mg QDAY YASMEEN Administration Diltiazem HCl 60 mg 04/05/25 18:00 04/06/25 05:16 Diltiazem 30 Mg Tablet PO 05/05/25 17:59 60 mg Q6H YASMEEN Administration Melatonin 3 mg 04/05/25 21:00 04/05/25 20:21 Melatonin 3 Mg Tablet PO 05/05/25 20:59 3 mg HS YASMEEN Administration Midodrine 10 mg 04/05/25 22:00 04/06/25 05:16 Midodrine 5 Mg Tablet PO 05/05/25 21:59 10 mg TID YASMEEN Administration Pharmacy Consult 1 each 04/06/25 09:00 Pharmacy To Dose Warfarin PO 05/06/25 08:59 QDAY PRN PROTOCOL Plan 69F with history of atrial fibrillation, congestive heart failure, COPD not on oxygen at home, severe mitral valve pathology s/p valve replacement, hypertension, CKD stage III, and anxiety admitted for a fib rvr. Per cardiology, d/c amiodarone drip, starts midodrine 10mg TID, gave loading dose digoxin 0.25mcg last night and now on 0.123mcg QD. Start diltiazem 60mg Q6H. Hold lasix due to potential hypotention. INR today 3.2, pharmacy to dose warfarin. Low iron, plan for 1 bag IV iron today and 1 tmr. Pending echo. 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 Initial EKG in ED shows a fib rvr at a rate of 123. - Cardiology consulted : Per cardiology, d/c amiodarone drip, starts midodrine 10mg TID, gave loading dose digoxin 0.25mcg last night and now on 0.123mcg QD. Start diltiazem 60mg Q6H. Hold lasix due to potential hypotention - Cardiac monitoring - Avoid QTc proloning agent. #Supratheraputic INR #chronic a fib #mitral valve replacement/mechanical valve Initial INR 4.1. Pt states she has been taking her warfarin as instructed. No signs of bleeding noted on pt. - Pharmacy to dose warfarin - Daily INR - Vitamin K if need of reversal, consider PCC or FFP if acutely bleeding. - Bleeding precaution #CHF, likely from pulmonary hypertension Hx of CHF, Echo from 11/19/23 shows Normal LV size. Low normal function. Dyskinetic mid anterior septal. Flattened septal due to RV pressure and volume overload. Estimated EF 50%, RV moderately dilated. Severe dysfunction. RVSP 65 mmHg. Severe PAH. Severe biatrial dilatation. An aneurysm of the interatrial septum is present. Mitral valve is moderately stenosis , mean gradient 8mmHg. Severely decreased mobility of the posterior mitral valve leaflet. Moderate mitral regurgitation. Moderate to severe TR. Mild pulmonic regurgitation. IVC mildly dilated. Pt reports her doctor took her off lasix 20mg. Initial BNP 194 in ED. 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 #Elevated LFTs, likely from primary hepatocellular disease vs alpha-1-AT #Asymptomatic cholelithiasis Liver US from 03/30/25 shows 8 mm gallstone, Liver 16.9 cm fatty infiltration irregular contour no focal liver lesions. Normal hepatopedal portal venous flow. Patent IVC. Alpha-1-AT on 03/16/25 shows 257 (positive) - Continue trending LFTs - Monitor for pt's symptoms - Outpt gen surg follow up for cholelithiasis #CKD Stage III Chronic medical problem. Baseline Cr 1.8 - Continue outpt nephrology follow up - Monitor urine output - Daily labs, monitor chemistry - Renal dose med, avoid nephrotoxin - Caution with contrast or offending mediations #COPD, likely from chronic smoking Chronic medical problem. Do not use oxygen at home. Saturates well at baseline. - Continue home medication albuterol sulfate 0.63mg/3mL and levalbuterol as needed. - Supplemental O2 as needed #Chronic anemia, likely low iron intake vs anemia of chronic disease Baseline Hgb 10.6. Iron panels from 03/16/25 shows Iron 8, TIBC 235, Iron Sat 3, Ferritin 381. - Treat underlying illness - Continue outpt follow up with PCP - IV iron x 1 on 04/06, plan for second bag of IV iron on 04/07. Dispo: Med[facility] DVT prophylaxis: SCDs GI prophylaxis: Protonix 40 Diet: Renal diet Lines: Peripheral IV Code status: Full code Case discussed with my senior resident Dr. Thomas Case discussed with my attending Dr. Niels Ramos, PGY 1
[2025-04-06] MEDS: FERRIC SOD GLUC INJ 125 MG in SODIUM CHLORIDE 0.9% 100 ML 110 MG IV (09:50)
--- NOTE | 2025-04-06 09:51 | PC.SS ---
SS rounding note; Cardiology is following patient, INR at 4.1, Echo pending. SS will follow up with Discharge plan.
[2025-04-06] MEDS: POLYETHYLENE GLYCOL 17 GM PACKET PO (09:57)
[2025-04-06 10:41] LABS: Misc Send Out* See Sep Rpt
--- NOTE | 2025-04-06 11:31 | PC.SS ---
Patient Tessie Roach is a 69 Year old female admitted for AFIB W/RVR. SS met with patient at bedside to discuss discharge plan. Patient reports she lives at home with her life partner, Shaquille Villalta. Patient reports her daughter,Ale Hernandez is her, surrogate decision maker, . Patient reports she utilizes a cane to assist with ambulation. Choice of pharmacy is [facility]. At time of discharge patient will return back home, life partner will provide transportation. Next of kin: Daughter, Chantelle Trammell Discharge Plan: Home
--- NOTE | 2025-04-06 15:06 | ESPR_ITS ---
<Statement entered by Amaris Posadas MD - 04/08/25 12:57> I personally evaluated patient examined the patient with resident physician Dr. Julien PGY 2 the patient appears to be doing little better today rate controlled much better with the diltiazem 60 mg dose every 6 hours will change her to 40 mg dose. It is a good dose for rate control continue rest of medications, may be restarted depending INR pressure elevated the patient with resident physician all essential components of progressive bruit agree with treatment plan recommendation as documented. Documentation for date of: 04/06/25 Subjective Subjective Interval history: Pt is seen at bedside, telemetry is reviewed. Pt is in afib rate controlled with HR in the 70's. Pt denies any palpitations, dizziness, chest pain or pressure. Pt states she has some shortness of breath. Pt has history of mitral valve stenosis s/p replacement therefor will need to be on warfarin indefinitely with INR goal between 2.5-3.5. Pt is otherwise doing well, cardiology clears the pt to be discharged on diltiazam 240mg Qday and digoxin 124mcg Qday, warfarin 5mg Qday and midodrine 10mg TID. vitals are stable, BP is 109/52 labs Hgb 9.4, Htc 29.0%, INR 3.2, PT 31.9, remaining of labs are reviewed and electrolytes are repleted. Exam Vital Signs Temp Pulse Resp BP Pulse Ox O2 Del Method 97.3 F 58 L 20 109/52 L 98 Room Air 04/06/25 12:00 04/06/25 13:50 04/06/25 12:00 04/06/25 13:50 04/06/25 12:00 04/06/25 12:00 Narrative Exam GENERAL: A&Ox3 . elderly female, well groomed, cooperative, pleasantly conversational, Not in acute distress NEURO: no focal neurological deficits noted HEENT: Atraumatic, Normocephalic. mucous membranes moist. Eyes open, symmetrical, & clear HEART: irregular rate and rhythm, no murmurs or gallops noted LUNGS: Clear to auscultation with no wheezing or crackles. ABDOMEN: soft, non-distended, non-tender, bowel sounds heard, no guarding or rebound tenderness SKIN: No Rash or ecchymoses EXTREMITIES: No edema, tenderness, able to move all 4 extremities, pedal pulses palpated Objective Labs 04/06/25 05:43 04/06/25 05:43 Labs: Laboratory Results - last 24 hr 04/06/25 05:43 WBC 5.3 RBC 3.11 L Hgb 9.4 L Hct 29.0 L MCV 93 MCH 30.2 MCHC 32.4 RDW Std Deviation 65.1 H Plt Count 210 Neut % (Auto) 72 Lymph % (Auto) 17 [place] % (Auto) 8 Eos % (Auto) 3 Baso % (Auto) 0 Neut # (Auto) 3.8 Lymph # (Auto) 0.9 L [place] # (Auto) 0.4 Eos # (Auto) 0.1 Baso # (Auto) 0.0 Immature Gran # (Auto) 0.04 H Absolute Nucleated RBC 0.00 Immature Gran % 1 H Nucleated RBC % 0 PT 31.9 H* D INR 3.2 H Sodium 144 Potassium 3.2 L Chloride 106 Carbon Dioxide 28.2 Anion Gap 10 BUN 14 Creatinine 1.4 H Estim Creat Clear Calc 32.7 L eGFR 41 L BUN/Creatinine Ratio 10 L Glucose 83 Calculated Osmolality 286 Calcium 9.2 Corrected Calcium 9.8 Phosphorus 2.6 Magnesium 2.8 H Total Bilirubin 0.4 AST 104 H ALT 68 H Alkaline Phosphatase 71 Total Protein 6.1 Albumin 3.2 L Globulin 2.9 Albumin/Globulin Ratio 1.1 L Quality Measures Quality Measures VTE prophylaxis Advance care planning discussed with:: patient Assessment & Plan Assessment Current Active Medications: Generic Name Dose Route Start Last Admin Trade Name Freq PRN Reason Stop Dose Admin Digoxin 0.125 mg 04/06/25 09:00 04/06/25 08:08 Digoxin 0.125 Mg Tablet PO 05/06/25 08:59 0.125 mg QDAY YASMEEN Administration Diltiazem HCl 60 mg 04/05/25 18:00 04/06/25 13:49 Diltiazem 30 Mg Tablet PO 05/05/25 17:59 60 mg Q6H YASMEEN Administration Ferric Sodium Gluconate 125 mg 110 mls @ 110 mls/hr 04/07/25 09:00 / Sodium Chloride IV 05/07/25 08:59 QDAY YASMEEN Melatonin 3 mg 04/05/25 21:00 04/05/25 20:21 Melatonin 3 Mg Tablet PO 05/05/25 20:59 3 mg HS YASMEEN Administration Midodrine 10 mg 04/05/25 22:00 04/06/25 13:50 Midodrine 5 Mg Tablet PO 05/05/25 21:59 10 mg TID [facility] Administration Pharmacy Consult 1 each 04/06/25 09:00 Pharmacy To Dose Warfarin PO 05/06/25 08:59 QDAY PRN PROTOCOL Polyethylene Glycol 17 gm 04/06/25 09:45 04/06/25 10:00 Polyethylene Glycol 17 Gm Packet PO 05/06/25 09:44 Not Given QDAY [facility] Sennosides 1 tab 04/06/25 09:38 Senna Tablet PO 05/06/25 09:37 QDAY PRN CONSTIPATION Protocol Plan Ms. Roach is a 69-year-old female with past medical history significant for chronic A-fib on warfarin, HFpEF with an EF of 50%, CKD stage III, COPD not on home oxygen, history of CVA, severe mitral stenosis status post mitral valve replacement in 1999 at [place], hypertension and anxiety presented to the ED complaining of palpitations and dizziness. Cardiology is consulted for A-fib with RVR and hypotension. #Chronic A-fib with RVR #HFpEF, EF 40-45% #Severe PAH #Hypotension, new onset #Severe mitral stenosis s/p mitral valve replacement in 1999 -Patient presented to the ED complaining of palpitations for several days which has progressively worsened. Patient's A-fib medications have been readjusted several times due to hypotension however patient continues to go into A-fib with RVR. Patient was initially diagnosed with A-fib in 2000 -Pt has Hx of severe mitral stenosis status post bioprosthetic mitral valve replacement in 1999 at [place] EKG shows A-fib with rate of 123, QTc 535 Chest Xray: Moderate enlargement cardiac contour, Pulmonary artery hypertension. Echo from 04/05 : Normal LV size and wall thickness.The ejection fraction is visually estimated at 40-45 %. Global left ventricular systolic function is mildly decreased. The RV is normal in size and systolic function. The estimated RVSP, 45 mm hg Dilated left atrium. Evidence of mechanical mitral valve bioprosthetic valve with mild stenosis. Mean gradient 9 mmHg Mitral apparatus showed thickening calcification. Normal aortic valve. No evidence of pericardial effusion. [id number] score-4 Has-bled score 4 Plan: - Patient was initially started on amiodarone drip and continues to be in RVR with soft blood pressure. - Discontinue amiodarone drip as patient has chronic A-fib therefore amiodarone would be ineffective. -Recommend Midodrine to 10 mg 3 times daily -Recommend digoxin 125mcg Qday -Recommend Diltiazem 240mg Qday on discharge -Pt is not in decompensated HF therefore hold lasix for now due to hypotension -Pt's INR on admission was 4.1, no signs of active bleeding. -Recommended starting warfarin 5mg qd, INR goal 2.5-3.5 (No pharmacy dosing needed) -Avoid QT prolongation agents #CKD Stage III #Chronic anemia, likely anemia of chronic disease #COPD, likely from chronic smoking #Elevated LFTs, likely from primary hepatocellular disease vs alpha-1-AT #Asymptomatic cholelithiasis -management as per primary team Thank you for the consult and allowing us to participate in the care of the patient. Cardiology will continue to follow. Assessment and plan discussed with my attending medical sales representative Dr. Cuauhtemoc Julien (PGY-2)- Internal medicine resident
--- NOTE | 2025-04-06 19:12 | PC.NURSE ---
patient c/o pain upon urination, called and made aware, new order to collect ua c/s if positive.
[2025-04-06] MEDS: MELATONIN 3 MG TABLET PO (21:11)
[2025-04-06 22:12] LABS: Collection Type, Urine Clean Catch
[2025-04-06 22:21] LABS: Amorphous Crystals,Urine Present (Absent); Bilirubin,Urine Negative (Negative); Blood,Urine Trace (Negative); Calcium Oxalate Crystals,Urine 3+; Clarity,Urine Turbid (Clear/Hazy); Color,Urine Yellow (Lt Yel-Yel); Culture Indicated,Urine Not Indicated; Glucose, Urine Negative (Negative); Ketones,Urine Negative (Negative); Leukocyte Esterase,Urine Negative (Negative); Nitrite,Urine Negative (Negative); PH,Urine 6.5 (5.0-7.0); Protein,Urine 1+ (Neg - Trace); RBC,Urine 4 /hpf (0-3); Specific Gravity,Urine 1.039 (1.001-1.035); Squamous Epithelial Cell,Urine 1 /hpf (0-5); Triple Phosphate Crystal,Urine Rare; Urobilinogen,Urine Negative mg/dL (0.0-1.0); WBC,Urine 6 /hpf (0-5)
[2025-04-06 22:22] LABS: Sperm,Urine Absent
[2025-04-07] VITALS (11 sets, daily range): BP systolic 100–133; BP diastolic 60–73; PULSE 57–103; RESP 16–18; TEMP 36.2–36.6; O2SAT 95–99; BMI 23.3
[2025-04-07 05:35] LABS: Basophils # (Auto) 0.0 Thou/mm3 (0.0-0.2); Basophils % (Auto) 0 % (0-2.5); Eosinophils # (Auto) 0.2 Thou/mm3 (0.0-0.5); Eosinophils % (Auto) 3 % (0-10); Hematocrit 27.7 % (36.0-46.0); Immature Granulocytes Auto 0.03 Thou/mm3 (0.00-0.00); Lymphocytes # (Auto) 0.9 Thou/mm3 (1.0-4.8); Lymphocytes % (Auto) 16 % (10-50); Mean Corpuscular HGB Conc 31.4 g/dl (31.0-37.0); Mean Corpuscular Hemoglobin 29.6 pg (25.0-35.0); Mean Corpuscular Volume 94 fL (80-100); Monocytes # (Auto) 0.5 Thou/mm3 (0.0-0.8); Monocytes % (Auto) 9 % (0-12); Neutrophils # (Auto) 4.3 Thou/mm3 (1.8-7.7); Neutrophils % (Auto) 72 % (37-80); Nucleated Red Blood Cell # 0.00 Thou/mm3 (0.00-0.00); Nucleated Red Blood Cell % 0 /100 WBC (0); Platelet Count 209 Thou/mm3 (140-440); RDW Standard Deviation 66.8 fL (36.4-46.3); Red Blood Count 2.94 Miln/mm3 (4.00-5.20); White Blood Count 5.9 Thou/mm3 (3.6-11.0)
[2025-04-07 05:36] LABS: Hemoglobin 8.7 g/dL (12.0-16.0)
[2025-04-07 05:46] LABS: INR 2.7 (0.9-1.3); Prothrombin Time 27.6 Seconds (9.0-12.2)
[2025-04-07] MEDS: MIDODRINE 5 MG TABLET 10 MG PO ×2 (05:46→14:40)
[2025-04-07 06:09] LABS: Alanine Aminotransferase 70 U/L (10-49); Albumin, Serum 3.1 gm/dL (3.4-4.8); Albumin/Globulin Ratio 1.1 (1.2-2.2); Alkaline Phosphatase 67 U/L (46-116); Anion Gap 6 (7-16); Aspartate Amino Transferase 122 U/L (0-34); BUN/Creatinine Ratio 13 Ratio (12-20); Bilirubin,Total 0.6 mg/dL (0.3-1.2); Blood Urea Nitrogen 18 mg/dL (9-23); Calcium 8.8 mg/dL (8.3-10.6); Calcium (Corrected) 9.5 mg/dL (8.5-10.1); Carbon Dioxide 26.9 mMol/L (20.0-31.0); Chloride 109 mMol/L (98-107); Creatinine (Component) 1.4 mg/dL (0.6-1.3); Digoxin 1.1 ng/mL (0.8-2.0); Estimated Creatinine Clearance 32.7 mL/min (>60); Globulin 2.7 gm/dL (2.3-3.5); Glucose 85 mg/dL (74-106); Magnesium 2.1 mg/dL (1.6-2.6); Osmolality,Calculated 284 (275-295); Phosphorous 2.0 mg/dL (2.4-5.1); Potassium 4.0 mMol/L (3.4-5.1); Sodium 142 mMol/L (136-145); Total Protein 5.8 gm/dL (5.7-8.2); eGFR 41 See Note
[2025-04-07] MEDS: DIGOXIN 0.125 MG TABLET PO (09:00)
[2025-04-07] MEDS: POLYETHYLENE GLYCOL 17 GM PACKET PO (09:03)
[2025-04-07] MEDS: FERRIC SOD GLUC INJ 125 MG in SODIUM CHLORIDE 0.9% 100 ML 110 MG IV (09:37)
[2025-04-07] MEDS: POT PHOS 15 mMol in NS 250 ML 15 MMOL/250 ML BAG 62.5 MMOL IV (09:38)
[2025-04-07] MEDS: DILTIAZEM 30 MG TABLET 60 MG PO (12:23)
[2025-04-07] MEDS: WARFARIN 2.5 MG TABLET PO (12:24)
--- NOTE | 2025-04-07 12:43 | ESDS_ITS ---
<Statement entered by Adolph Bowser MD - 04/11/25 12:38> I reviewed above note and agree with findings and plans. I have also personally examined the patient with medicine team and went over assessment and plan with medical team including lab intern and resident physician. <Statement entered by Zack Coffey MD - 04/07/25 14:30> Patient seen and examined at bedside. I discussed and supervised with the lab intern physician who took care of this patient. I personally saw and examined the patient. I agree with most of the assessment and plan. Plan of care discussed with attending Dr. Niels Coffey MD PGY-2 Planned Discharge Date 04/07/25 DS: Providers Provider Date of admission: 04/05/25 11:43 Primary care physician: Jeff Thomas MD Admitting Provider: Adolph Bowser MD Attending Provider on Admission: Adolph Bowser MD Consults: 04/05/25 13:05 Consult to Cardiology Routine Comment: afib rvr Consulting Provider: Amaris Posadas Attending Provider on DC: Adolph Bowser MD Discharging Provider: Bakari Ramos DO Anticipated date of discharge: 04/07/25 DS: Diagnosis Problem List Completed Was Problem List Reviewed/Reconciled?: Yes Hospital Course Hospital Course Hospital course: Ms. Roach is a 69F with history of atrial fibrillation, congestive heart failure with EF 40%, COPD not on oxygen at home, severe mitral valve pathology s/p valve replacement, hypertension, CKD stage III and anxiety admitted for a fib rvr. In the ED, EKG shows a fib rvr with a rate of 123, VS stable, with complaint of lightheadedness that had resolved upon admission. She was put on amiodarone drip for rate control in the ER and first day of admission. Cardiology discontinued amiodarone drip as patient has chronic A-fib therefore amiodarone would be ineffective. She was put on digoxin and diltizem instead. Of note, her INR was at 4.1 with no signs of bleeding. Pharmacy dosed warfarin. She was instructed to take warfarin 5mg QD instead of the 7mg she was on. Echo done on 04/05/25 shows EF of 40-45%, a slight decrease in EF compare to her old echo in 11/20/23. Advised pt to continue follow up outpt with cardiology for further management. Pt is medically and physically stable for discharge. 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 #Asymptomatic cholelithiasis #CKD Stage III #COPD #Chronic anemia Discharge Plan: Take digoxin 125 mcg once daily, diltiazem CD 240 mg daily once daily, midodrine 10 mg 3 times a day, pravastatin 40 mg at bedtime, warfarin 5 mg once daily to be followed with cardiology clinic, continue using albuterol inhaler, fluticasone inhaler and Anoro Ellipta inhaler as needed Take iron pills every other day to avoid constipation and take miralax as needed for constipation STOPPED --> Amiodarone, calcitriol, meloxicam, atorvastatin, B12, diltiazem 120, propranolol, nicotine patch, midodrine 5 mg Take all home medications as given in the instructions Follow-up with your PCP as outpatient within a week Follow-up with your document imaging manager within 2 weeks Follow-up with your press offbearer within 2 weeks Follow-up with your labs sent for lupus testing with your PCP as outpatient In case of emergency, call 911 or come back to the ED Monitor yourself for signs of bleeding and bruising as you are on a blood thinner/warfarin Case discussed with my senior resident Dr. Coffey Case discussed with my attending Dr. Niels Ramos, PGY 1 Time Spent with Patient Time attestation: Total time spent providing and/or coordinating discharge services: Time spent: Greater than 30 minutes Exam Vital Signs Temp Pulse Resp BP Pulse Ox O2 Del Method 97.1 F 103 H 17 120/65 97 Room Air 04/07/25 08:00 04/07/25 12:23 04/07/25 08:00 04/07/25 12:23 04/07/25 08:00 04/07/25 08:00 Narrative Exam General: Well appearing, well nourished, in no distress. Oriented x 3, normal mood and affect . Ambulating without difficulty. Skin: Good turgor, no rash, unusual bruising or prominent lesions Heart: No cardiomegaly or thrills; irregular rate and rhythm, no murmur or gallop Lungs: Clear to auscultation and percussion. No rales, wheeze, or rhonchi Abdomen: Bowel sounds normal, no tenderness, organomegaly, masses, or hernia Back: Spine normal without deformity or tenderness, no CVA tenderness Extremities: No amputations or deformities, cyanosis, edema or varicosities, peripheral pulses intact Psychiatric: Oriented X3, intact recent and remote memory, judgment and insight, normal mood and affect. Discharge Plan Plan Patient Disposition: HOME (Self Care) Care Plan Goals: Take digoxin 125 mcg once daily, diltiazem CD 240 mg daily once daily, midodrine 10 mg 3 times a day, pravastatin 40 mg at bedtime, warfarin 5 mg once daily to be followed with cardiology clinic, continue using albuterol inhaler, fluticasone inhaler and Anoro Ellipta inhaler as needed Take iron pills every other day to avoid constipation and take miralax as needed for constipation STOPPED --> Amiodarone, calcitriol, meloxicam, atorvastatin, B12, diltiazem 120, propranolol, nicotine patch, midodrine 5 mg Take all home medications as given in the instructions Follow-up with your PCP as outpatient within a week Follow-up with your document imaging manager within 2 weeks Follow-up with your press offbearer within 2 weeks Follow-up with your labs sent for lupus testing with your PCP as outpatient In case of emergency, call 911 or come back to the ED Monitor yourself for signs of bleeding and bruising as you are on a blood thinner/warfarin Prescriptions/Referrals Prescriptions/Med Rec: New digoxin 125 mcg (0.125 mg) tablet 0.125 mg PO QDAY 90 Days Qty: 90 0RF midodrine 10 mg tablet 10 mg PO TID Qty: 90 0RF warfarin 5 mg tablet 5 mg PO QDAY Qty: 60 0RF diltiazem HCl [Cardizem CD] 240 mg capsule,extended release 24hr 240 mg PO QDAY Qty: 90 0RF ferrous sulfate 325 mg (65 mg iron) tablet,delayed release (DR/EC) 325 mg PO Q OTHER DAY Qty: 180 0RF polyethylene glycol 3350 [Miralax] 17 gram powder in packet 17 g PO QDAY PRN (Reason: constipation) Qty: 30 0RF Continued pregabalin [Lyrica] 25 mg capsule 25 mg PO QHS Qty: 30 2RF pravastatin 40 mg tablet 40 mg PO QHS Qty: 90 2RF fluticasone propionate 110 mcg/actuation HFA aerosol inhaler 1 puff INHALATION BID Qty: 12 3RF benzonatate 100 mg capsule 100 mg PO BID PRN (Reason: cough) Qty: 30 0RF levalbuterol HCl 0.63 mg/3 mL solution for nebulization 0.63 mg inhalation TID PRN (Reason: shortness of breath or wheezing) Qty: 90 1RF albuterol sulfate 0.63 mg/3 mL solution for nebulization 0.63 mg inhalation QID PRN (Reason: wheezing) Qty: 75 1RF Mica-Mary 0.8 mg tablet 1 tab PO QDAY Qty: 90 2RF melatonin 3 mg Tablet 3 mg PO HS umeclidinium-vilanterol [Anoro Ellipta] 62.5-25 mcg/actuation Blister With Device 1 inh INHALATION QDAY PRN (Reason: Dizziness Or Vertigo) Discontinued nicotine 7 mg/24 hr patch 24 hour 1 patch transdermal Q24H Qty: 14 0RF furosemide 20 mg tablet 20 mg PO Q OTHER DAY Qty: 60 0RF Rx Instructions: Hold for a week until 12/30 meloxicam 7.5 mg tablet 7.5 mg PO QDAY Qty: 45 3RF cyanocobalamin (vitamin B-12) 1,000 mcg capsule 1,000 mcg PO QDAY Qty: 90 0RF diltiazem HCl [Cardizem CD] 120 mg capsule,extended release 24hr 120 mg PO QAM Qty: 90 0RF midodrine 5 mg tablet 5 mg PO TID PRN (Reason: If SBP is below 100 ) Qty: 90 0RF Rx Instructions: do not give last dose of day after 6PM or within 4 hrs of bedtime amiodarone 100 mg tablet 100 mg PO BID 90 Days Qty: 180 3RF calcitriol 0.25 mcg capsule 0.25 mcg PO QDAY MDD 0.25 mcg Qty: 90 2RF propranolol 10 mg tablet 10 mg PO QDAY atorvastatin 80 mg tablet 80 mg PO HS warfarin 5 mg tablet 7 mg PO QDAY@1200 MDD 5 mg or as directed Referrals: Amaris Posadas MD [Physician] - Karen Alves MD [Physician] - Jeff Thomas MD [Primary Care Provider] - Patient/Caregiver Discharge Instructions Print Language: [place] Island[place] Stand Alone Forms: [facility] Award Info., Patient Portal Info Letter Discharge Order Discharge Orders: Discharge (Routine); Ordered 04/07/25 Ordered By: Zack Coffey Quality Discharge Quality Measures none
[2025-04-10 06:22] LABS: Complement Component C3* 129 mg/dL (83-193); Complement Component C4c* 26 mg/dL (15-57); DNA (ds) Antibody* 2 IU/mL
[2025-04-10 06:22] LABS: Hexagonal Phase Confirm WEAKLY POSITIVE (NEGATIVE); PTT-LA Screen 78 seconds (< OR = 40); Thrombin Clotting Time 20 sec (13-19); dRVVT Confirm NEGATIVE (NEGATIVE); dRVVT Screen 67 seconds (< OR = 45)
== END 2025-04-07 16:28 | disposition home or self-care (01) | DRG 309 ==
LOC: SERX 11:59 → SERHOLD 12:10 → S2NX 20:00 → S3NX 04-06 22:38
PROVIDERS: Nurse Practitioner Primary Care; Admitting Provider Internal Medicine; Emergency Provider Emergency Medicine; PCP Student in an Organized Health Care Education/Training Program; Visit Provider Internal Medicine
DX: I48.20 Chronic atrial fibrillation, unspecified (principal); I13.0 Hypertensive heart and chronic kidney disease with heart failure and stage 1 through stage 4 chronic kidney disease, or unspecified chronic kidney disease; I50.32 Chronic diastolic (congestive) heart failure; F41.9 Anxiety disorder, unspecified; N18.30 Chronic kidney disease, stage 3 unspecified; J44.9 Chronic obstructive pulmonary disease, unspecified; I27.21 Secondary pulmonary arterial hypertension; I34.0 Nonrheumatic mitral (valve) insufficiency; I95.9 Hypotension, unspecified; K80.20 Calculus of gallbladder without cholecystitis without obstruction; K76.0 Fatty (change of) liver, not elsewhere classified; D63.1 Anemia in chronic kidney disease; Z95.2 Presence of prosthetic heart valve; F17.200 Nicotine dependence, unspecified, uncomplicated; I48.92 Unspecified atrial flutter; D50.9 Iron deficiency anemia, unspecified; I07.1 Rheumatic tricuspid insufficiency; K59.00 Constipation, unspecified; Z79.01 Long term (current) use of anticoagulants; Z79.899 Other long term (current) drug therapy; Z88.8 Allergy status to other drugs, medicaments and biological substances; Z95.3 Presence of xenogenic heart valve; Z98.84 Bariatric surgery status
CPT/HCPCS: 36415; 71045; 76706; 80053; 80162; 81001; 83735; 83880; 84100; 84439; 84443; 84484; 85025; 85610; 85613; 85730; 86160; 86225; 93005; 93225; 93306; 94664; 96365; 96366; J0283; J2916; J3475; J3480; J7050; J7999; A9270

== ENCOUNTER 2025-04-09 14:07 | Outpatient (AMB) | payer MEDICARE, SELFPAY ==
--- NOTE | 2025-04-09 14:43 | ACNOTE_ITS ---
Vital Signs 04/09/25 14:44 BP 88/53 L Blood Pressure Source Automatic Cuff Blood Pressure Location Right Upper Arm Position Sitting Respiration 17 Pulse 107 H Pulse Source Monitor Temp 98.0 F Temp Source Temporal Artery Scan Pulse Oximetry (%) 95 Oxygen Delivery Method Room Air Allergies/Meds Allergies & Medications Allergies banana Allergy (Severe, Verified 04/05/25 14:16) Swelling of Lip/Tongue/Throat chicken derived Allergy (Severe, Verified 04/05/25 14:16) Hives heparin Allergy (Severe, Verified 04/05/25 14:16) Unconscious rice Allergy (Intermediate, Verified 04/05/25 14:16) CHOKES MA Intake Visit Data Collection New Patient or Established: Established Patient (seen at [facility] within 3 years) Seen by Clinical Staff ONLY (RN/MA): No Reason for Visit:: HOSPITAL FOLLOW UP Pain Present Currently: No PCP or OBGYN visit in last 3 months: Yes Do You Feel Safe at Home: Yes Authorities Contacted: N/A Smoking Status Smoking Status: Former smoker Immunization / Flu Flu Vaccine in the Last 12 Months: Yes Flu Vaccine Exclusion Criteria: Already Received Past Medical History Past Medical History NEUROLOGIC: Positive Cerebrovascular Accident; Negative Seizures CARDIAC: Positive Cardiac Disorders, Atrial Fibrillation, Hypercholesterolemia and Valvular Heart Disease; Negative Congestive Heart Failure RESPIRATORY: Positive Chronic Obstructive Pulmonary Disease (COPD), Asthma, Smoking and Smoking Exposure; Negative Smoking Cessation Counseling or Clubbing GASTROINTESTINAL: Positive Gastrointestinal Disorders, Gastroesophageal Reflux Disease and Obesity (gastric bypass) GENITOURINARY: Positive Genitourinary Disorders and Renal Disease MUSCULOSKELETAL: Positive Arthritis ENT: Positive Cataracts ENDOCRINE: Positive Diabetes Mellitus Type 2; Negative Endocrine Disorders or Diabetes Mellitus Type 1 HEMATOLOGIC: Positive Anemia; Negative Blood Disorders or Sickle Cell Disease OTHER HISTORY: Negative Autoimmune Disease, Blood Transfusions, Blood Transfusion Reaction, Anesthesia Reactions or Cancer Surgical History SURGICAL: Positive Valve Replacement and Gastric Bypass Surgery Social History SMOKING STATUS: Smoking status: Former smoker SECOND HAND EXPOSURE: second hand exposure: Yes ALCOHOL: Alcohol Intake: Former ALCOHOL FREQUENCY: Alcohol Intake Frequency: holidays/special occasions only HOUSING: Housing: mobile home LIVES WITH: Lives With: Family Patient Portal Questionaires PHQ-9 PHQ-2 Over the last 2 weeks, how often have you been bothered by any of the following problems? 1. Little interest or pleasure in doing things: not at all PHQ-9 8. Moving or speaking so slowly that other people could have noticed? - Or the opposite - being so fidgety or restless that you have been moving around a lot more than usual: not at all Source: Developed by Drs. Jose Bolivar, Charlene Casillas, Hussein Sherwood and colleagues, with an educational yousuf from [employer]. Social History Living Situation History Lives With: Spouse Housing: mobile home Housing Other:: pt lives with Tobacco History Smoking Status: Former smoker Second Hand Smoke Exposure: Yes Alcohol History Alcohol Intake: Former Alcohol Intake Frequency: holidays/special occasions only Domestic Abuse History Do You Feel Safe at Home: Yes Review of Systems Report any current symptoms Only answer those that you have currently: Past Medical History Past Medical History Have you ever been diagnosed with any of the following: Neurological Problems Cerebrovascular Accident (CVA): Yes Seizures: No Cardiology Problems Atrial Fibrillation: Yes Hypercholesterolemia: Yes Congestive Heart Failure: No Valvular Heart Disease: Yes Respiratory Problems Chronic Obstructive Pulmonary Disease (COPD): Yes Asthma: Yes Smoking: Yes Smoking Cessation Counseling: No Smoking Exposure: Yes Clubbing: No Stomache/Intestinal Problems Gastroesophageal Reflux Disease: Yes Obesity: Yes (gastric bypass) Genital/Urinary Problems Renal Disease: Yes Musculoskeletal Problems Arthritis: Yes Head,Eye,Nose,Throat Problems Cataracts: Yes Endocrine Problems Diabetes Mellitus Type 1: No Diabetes Mellitus Type 2: Yes Blood Problems Anemia: Yes Sickle Cell Disease: No Other Problems Autoimmune Disease: No Blood Transfusions: No Blood Transfusion Reaction: No Anesthesia Reactions: No Cancer: No Surgical History Valve Replacement: Yes History of Present Illness HPI Narrative This 69-year-old female patient with past medical history for A-fib on amiodarone and warfarin, CKD III, COPD not on home oxygen, 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 She was managed for acute COPD exacerbation and atrial fibrilation in the hospital. Patient had problem with insurance coverage hence she was switched from eliquis to warfarin and was started on amiodarone after cardio consult for atrial fibrillation. Patient follows up with Dr Gaines, her outpatient dictating machine mechanic. Patient reported that she feels improvement in her shortness of breath and only feels shortness of breath when she ambulates. Denies any other active concerns. She ran out from her amiodarone and was not taking them and needed refill for the medications. She continues to have irregular rhythm and feels palpitations. Plan was discussed with the patient that she would need INR testing in the lab today. Lab was called that patient's results will be required to be notified at Dr Gaines office once resulted. She was referred to Access Specialist, Dr Palmer for management of COPD. She was given refills for her medication amiodarone and albuterol inhaler. She was explained that she will need to get INR weekly or get an INR kit from cardiology clinic as warfarin is regulated with INR. She agreed to the plan and was reassured. 12/28/23: Patient was seen at the office today. Patients recent INR is 2.1 which is in therapeutic range. Patient has seen Dr Gaines and he plans to do cardioversion on January 02. She has appointment due in january with her Access Specialist. She had a concern for pain in her both knee joints more severe while walking. we ordered bilateral Knee XR to look for any pathology.She was advised to take Tylenolol 650 mg upto 3 times a day only for severe pain and stop taking aspirin due to interaction with warfarin. She will recieve an INR kit tomorrow and will follow up with Dr Gaines. She is currently taking warfarin 5 mg qday. She was advised to stop torsemide due to soft blood pressure and jardiance as her recent A1c was 5.3 and blood sugars were slightly above normal during hospital stay.We referred her to Dr Alves, Polo Coach for her chronic kidney disease. We will follow on XR knee results.We will continue with rest of the management. 01/18/24: Patient was seen today in office. Patient was very teary and upset due to persistent symptoms of chest pain and shortness of breath. She reported having persistent palpitations and was concerned regarding her follow up with dictating machine mechanic. Per Patient's wishes, we switched her Wraparound Facilitator, Dr Posadas. I personally spoke to Dr Posadas to have a second opinion for ablation on phone call. He agreed to have a second opinion however due to her severe pulmonary h ypertension and mitral valve repair dictating machine mechanic suggested that shes not a candidate for ablation but he will follow up for symptomatic Atrial fib management Of note,Previously, she had a unsuccessful ablation per chart. Therefore , cardiology rec currently to increase her Diltiazem to 60 mg three times a day and continue with amiodarone 100 mg two times a day. Rest of the management will remain the same. She was advise to follow up with dictating machine mechanic, ground service equipment mechanic & Orthopedics after scheduling her appt. She was advised to do her INR levels weekly in our [facility] and I will follow up until she sees dictating machine mechanic. She had C/O severe bilateral knee , she has osteoarthritis B/L per XR knee. Per ortho, patient needs to have XR 4V B/L knee weight bearing as well. She was given norco 5/325 only 14 tabs for her severe knee pain. Advised her to follow up after four weeks. 02/08/2024: Patient was seen today at the office visit for follow-up. Patient seem to be asymptomatic and really pleasant and satisfied with her new dictating machine mechanic, Dr. Sherrie Posadas. She reported that she had less frequent episodes of palpitations and shortness of breath. Per cardiology, her Cardizem dose was changed to 60 mg twice daily 2 capsules at morning and night. Patient also visited foot orthopedist recommended to continue her inhalers albuterol, fluticasone inhalers. She also visited ground service equipment mechanic, Dr Alves. She has microalbuminuria. Labs showed normocytic anemia and kidney functions 30% with creatinine 1.8. We added losartan 25 mg for proteinuria. Medications were refilled. Patient has history of old CVA with ataxia there for she was advised to follow-up with her physical therapy outpatient. Patient reported having regurgitation with retrosternal burning therefore referral was made with preparer samples and repairs, Dr. Mckeon. She received corticosteroids injections intra- articular last week feels significantly improved when she visited Dr. Lai, orthopedics. 07/01/2024: Patient was seen in the [facility] today. Patient reported to have cough from last 2 weeks associated with white phlegm which is present only when she goes to bed for sleeping. She is actively smoking cigarette 6 cigarettes every day and trying to cut back on that. Patient denied any fever any chills, chest pain, any other signs of infection. She did not had swelling in her lower extremities. She was taking her home medications with compliance. Patient was advised to follow-up next week with new orders chest x- ray, BMP, BNP and was given prescription of prednisone 5 mg for 7 days for possible concern for component of bronchospasm and the underlying setting of COPD as culprit for her productive cough. Examination was significant for cough elicited on prolonged expiration. Patient was advised to continue her home medications as prescribed and will likely be follow-up next week with lab results. 07/08/24: Pt came for follow up for labs and she showed improvement in her SOB after steroids course and albuterol inhaler in combination with other inhaler. Still compliants of having orhtopnea. Chest x-ray showed B/L edema and mod vasc congestion. BNP 115 and Kidney functions showing Cr 1.8 Electrolyes unremarkable.Patient was advised to take lasix extra dose half pill once in a week to get rid of extra fluids if SBP above 120 and DBP above 80 so taking 60 mg lasix once every week.Will be given referral for Tempering Machine Operator for eye examination due to haziness in right eye. 11/04/2024: Patient was seen and examined in the clinic today. Patient has been doing well and did not had any active concerns. She has been feeling very good and has been exercising every day. Examination showed improvement in bilateral air entry and no wheezing was heard. Patient wanted to have a prescription refill for amiodarone, diltiazem, atorvastatin and patient wished to change pharmacy to [facility]. Patient also wanted to have follow-up with sterile technician for eye checkup, GI follow-up for GERD and GREENHOUSE TECHNICIAN follow-up for breast examination. Referrals were given. Patient was advised to make an appointment with respective referrals. Medications were reviewed. Patient is getting her labs/blood work by ground service equipment mechanic, Dr Alves next month. Of note, patient's Lasix dose was reduced to 20 mg once daily by ground service equipment mechanic. 12/02/2024: Patient was seen and examined in the clinic. Patient reported extreme fatigability and burning sensation with numbness and tingling in both lower extremities. She reported that she had an episode of presyncope last week during her wedding. Examination showed no lower extremity edema or wheezing. She was having tachycardia irregularly irregular. She wanted to have prescription for her medications which was given. She was also complaining of muscle soreness and feeling tired. She also reported to have cold intolerance despite warm temperature outside.Plan is to order thyroid function test, iron panel and A1c as all the tests were performed last year. Additionally, atorvastatin was discontinued and pravastatin 40 mg was started given less risk of muscle weakness as compared to atorvastatin. Her blood pressure was really soft and was recommended to take Lasix every other day and follow-up with cardiology in a week. Follow-up in a week in clinic. 12/23/24: Patient was seen and examined in the clinic today. She reported to have fatigability and generalized weakness with dryness of the mouth and dizziness. Patient reported that she has severe headache and has been having low blood pressure. She followed up with dictating machine mechanic a week ago and he recommended to stop taking diltiazem due to soft blood pressure and continue taking amiodarone and Lasix. Labs showed iron level, thyroid functions and A1c within normal limits. He was recommended to hold on Lasix for a week and prefer oral hydration with restarting Lasix on December 30 as every other day due to currently dehydrated clinical volume status. Patient reported to have improvement in her tingling and numbness with Lyrica and continued to had muscle soreness therefore, B12 and CMP were ordered. Her blood pressure was soft during this visit. Will follow-up with the labs. Patient was also complaining of pain in her knees therefore referral was given for physical therapy at least 3 times a week for 8 weeks and orthopedics referral for evaluation and possible another intra-articular steroid injection. Follow-up in a week. 12/30/24: Patient was seen and examined in the clinic with her today. She came for follow-up of her labs. She also reported to have symptoms of flu with cough associated with phlegm from past 3 days. She reported to have mild chills as well. She has been taking [id number] flu medication. Patient continued to have low blood pressure and appeared dehydrated. Labs were significant for B12 330. CHEM panel was significant for NEHA on CKD with creatinine 1.8 with GFR 31%. Thyroid function and A1c within normal limits. Patient was recommended to hold off on Lasix and follow-up with ground service equipment mechanic, Dr Alves within a week. She was prescribed with Augmentin 500 mg twice daily renally dose for 5 days for RTI. She reported to have improvement in her numbness and tingling sensation after Lyrica use. IM B12 shot was given and will be continued once every week. Patient is currently waiting for referral for PT and Ortho for knee pain. 02/10/25: Patient came to clinic for follow up. She was complaining of tremors from few weeks and has been taking albuterol inhaler 3 times a week at nighttime. She stated that previous month she received intra-articular steroid injection which helped with her knee joints and has started physical therapy as well. She was confused regarding her medications and therefore, she was provided with list of medications and each medicine was reviewed. Her blood pressure improved from last visits and Polo Coach recommeneded to keep hold on lasix as she is clinically dehydrated and due to NEHA. She also reported that her INR jumped up to 4.1 and dictating machine mechanic, Dr. Posadas recommended to hold warfarin and she will be repeating her INR upcoming week. She was advised to cut back on smoking which she has been trying to do currently smoking 3 cigarettes every day. Patient was given IM B12 shots and was recommended to follow-up in next 2 weeks to evaluate for improvement in tremors and clinical status. 02/24/2025: Patient came to the clinic for renal panel and PTH lab work follow- up. She stated that her shortness of breath has improved but she has some mild thrush due to use of inhalers. Her breathing inhalers including rescue inhaler and LABA/LAMA and ICS inhaler was discussed and she was shown a video for proper administration of the inhaler. She was switch to levalbuterol from albuterol due to complaint of tremors. She will also prescribed nystatin swish and swallow for oral thrush. Kidney functions showed BUN 28 and creatinine 2.0 with intact PTH 39. Polo Coach, Dr Alves recommended to to monitor kidney functions for now and she will follow-up with the patient with repeat kidney functions and PTH in March 2025. Patient was informed regarding follow-up with ground service equipment mechanic. Patient's INR has been around [address] Posadas, dictating machine mechanic has been following up with dosage of warfarin and patient is currently holding warfarin. She was given IM B12 shots. Follow-up in 3 weeks. 03/29/2025: Patient was seen in the clinic for follow-up. Patient reported feeling extremely weak and dizzy. Vitals revealed blood pressure 87/59, heart rate 114, respiratory 18 and saturating 97% room air. She has been loosing weight around 61 kg. She stated that she has been drinking atleast 2 bottles of water 1-1.5 L every day. Exam showed clear Breath sounds. Abdomen was soft mild tenderness in Rt Upper quadrant but roa was negative. She had a colonoscopy by GI specialist Dr Mckeon which showed hemorrhoids and erythermatous mucosa in sigmoid colon and biopsies were taken which were negative for dysplasia and microscopic colitis. Anti-trypsin were elevated and MARISOL was positive. Alpha- fetoprotein, anti-smooth were negative. Liver enzymes was slightly elevated. Hep panel was negative. Patient was informed regarding the results. Patient does have a follow-up with Dr. Mckeon on April 09, 2025. Complement including C3 and C4, gcvu-bhpakp-[id number] DNA were ordered to screen for lupus. Anti-smooth muscle antibodies were not found. Patient was found to have iron deficiency anemia with severe low iron levels and she was informed that he will need IV i donna infusion set up. She will benefit with IV iron therapy once for 2 weeks. Feraheme 510 mg x 2 once every week. Will be sending for further processing. Dr. Posadas, dictating machine mechanic was called and informed regarding patient's of blood pressure and Cardizem was decreased to 180 mg CD every day and amiodarone was continued. Patient reported her INR was 4.0 and her warfarin has been adjusted by dictating machine mechanic. She also reported to have pain in both knees and has been getting physical therapy. Patient had a episode of dizziness and was feeling very weak and was suggested to go to the ER for possible IV fluid resuscitation. ER doctor was notified as well for further evaluation. Patient's was at the bedside and she took the patient to the ER. 04/09/2025: Patient came to the clinic after being discharged from the hospital x 2 days ago. She was admitted in the hospital for A-fib RVR and was managed. Her medications were changed in the hospital stay. Amiodarone was discontinued and patient was started on Cardizem to 40 CD once daily and digoxin 0.25 mg once a day day along with midodrine 10 mg 3 times daily. Patient reported that she has been feeling better however still feels weaker and short of breath at times. Patient has been taking digoxin and Cardizem along with midodrine. Her blood pressure was noted to be low however she did not take her medication for midodrine and was informed to take her midodrine today. She has an appointment scheduled with Dr. Posadas on April 16, 2025. She was informed that she will need to get a blood level of serum digoxin on April 15, 2025 and follow-up with us in the center on April 16 as well after she will seek dictating machine mechanic. Recommended to continue her medications. No medication changes were made. Prescription refill for redilate was given. Review of Systems Review of Systems Systems Reviewed: All systems reviewed, normal except as documented Objective/Exam Narrative Physical exam: General: Patient is not in acute distress, answering questions appropriately, making appropriate eye contact. HEENT: Normocephalic, atraumatic, EOMI, PERRLA, dry mucous membrane Cardiac: irregular rate and rhythm, normal S1/S2, systolic murmur grade 3 more on apex. Hypotension. Lungs: Bilateral clear breath sounds heard on auscultation. mild wheezing heard on coughing Abdomen: Soft, mildly tender in right upper quadrant. Ora sign negative., nondistended, positive bowel sounds in all quadrants. No guarding or rebound tenderness. Neurology:Alert and oriented x 3. Cranial nerves II to XII intact and patient able to move all 4 extremities. Extremities: Normal to inspection, no edema, no cyanosis, strong peripheral pulses. Psych: appropriate mood and affect. Assessment & Plan Diagnosis / Problem List (1) Atrial fibrillation with rapid ventricular response: Status: Acute Assessment & Plan: -Patient came to the clinic after being discharged from the hospital x 2 days ago. She was admitted in the hospital for A-fib RVR and was managed. Her medications were changed in the hospital stay. Amiodarone was discontinued and patient was started on Cardizem to 40 CD once daily and digoxin 0.25 mg once a day day along with midodrine 10 mg 3 times daily. Patient reported that she has been feeling better however still feels weaker and short of breath at times. Plan: - Recommended to continue Cardizem 240 CD once daily and digoxin 0.25 mg once a day -Recommended to continue midodrine 10 mg thrice daily -Patient has a appointment with Dr. Posadas, dictating machine mechanic on April 16, 2025 -Recommended to continue her rescue inhaler and other inhalers as needed for COPD -Patient has stopped smoking from last 3 weeks -Recommended to get serum digoxin level on April 15, 2025 - Follow-up next week - Prescription refill given for lois-vit Patient was seen and discussed with attending physician, Dr.Watanakunakorn Dr. Martha MD, PGY 3 Orders: Orders Digoxin 04/15/25 I48.91 - Unspecified atrial fibrillation Advanced Care Planning Advance care planning discussed with:: patient Office Procedures [facility] Level of Care Nursing/Assessment Patient Status: Established Patient Nursing Assessment/Reassessment: Medication Reconciliation, Update PMH in EMR and Vital Signs Coordination of Care: Complex Care and Chronic Disease 1-5, Consent,records obtained, informed consent, Lab and Imaging orders and Results/Orders obtained Established Patient Charge Established Patient Point Assignment: 80 Established Patient Point Charge: EP Level 3 (80-115)
[2025-04-09 14:44] VITALS: BP 88/53; PULSE 107; RESP 17; TEMP 36.7; O2SAT 95
== END 2025-04-09 15:40 | disposition home or self-care (01) ==
LOC: HODAHC 14:07
PROVIDERS: PCP Student in an Organized Health Care Education/Training Program; Referring Provider Student in an Organized Health Care Education/Training Program; Supervising Provider Student in an Organized Health Care Education/Training Program; Visit Provider Student in an Organized Health Care Education/Training Program
DX: I48.91 Unspecified atrial fibrillation (principal)
CPT/HCPCS: 99213; G0463

== ENCOUNTER → 2025-04-14 | Outpatient (CLI) | payer MEDICARE, SELFPAY ==
[2025-04-14 09:41] LABS: Cardiac Risk Estimate 1.9 RATIO (3.7-5.6); Cholesterol 76 mg/dL (132-200); Digoxin 1.9 ng/mL (0.8-2.0); HDL Cholesterol 40 mg/dL (40-60); LDL Cholesterol,Calculated 26 mg/dL (0-130); Triglycerides 51 mg/dL (30-150)
== END | disposition home or self-care (01) ==
LOC: COPL 07:52
PROVIDERS: PCP Student in an Organized Health Care Education/Training Program; Referring Provider Specialist; Visit Provider Student in an Organized Health Care Education/Training Program
DX: I48.91 Unspecified atrial fibrillation (principal); E78.9 Disorder of lipoprotein metabolism, unspecified
CPT/HCPCS: 36415; 80061; 80162

== ENCOUNTER 2025-04-16 11:01 | Outpatient (AMB) | payer MEDICARE, SELFPAY ==
--- NOTE | 2025-04-16 11:11 | PD.RESCLINIC ---
Vital Signs 04/16/25 11:12 Weight 58.627 kg Weight Measurement Method Standing Scale BP 99/60 Blood Pressure Source Automatic Cuff Blood Pressure Location Right Upper Arm Position Sitting Respiration 18 Pulse 106 H Pulse Source Monitor Temp 97.3 F Temp Source Temporal Artery Scan Pulse Oximetry (%) 94 L Oxygen Delivery Method Room Air Allergies/Meds Allergies & Medications Allergies banana Allergy (Severe, Verified 04/05/25 14:16) Swelling of Lip/Tongue/Throat chicken derived Allergy (Severe, Verified 04/05/25 14:16) Hives heparin Allergy (Severe, Verified 04/05/25 14:16) Unconscious rice Allergy (Intermediate, Verified 04/05/25 14:16) CHOKES MA Intake Visit Data Collection New Patient or Established: Established Patient (seen at [facility] within 3 years) Seen by Clinical Staff ONLY (RN/MA): No Reason for Visit:: FOLLOW UP Pain Present Currently: No Evaluation Engineer Required: No PCP or OBGYN visit in last 3 months: No Date of Last PCP or OBGYN visit: 04/09/25 Hx Now: No Do You Feel Safe at Home: Yes Authorities Contacted: N/A Smoking Status Smoking Status: Former smoker Immunization / Flu Flu Vaccine in the Last 12 Months: Yes Flu Vaccine Exclusion Criteria: Already Received Past Medical History Past Medical History NEUROLOGIC: Positive Cerebrovascular Accident; Negative Seizures CARDIAC: Positive Cardiac Disorders, Atrial Fibrillation, Hypercholesterolemia and Valvular Heart Disease; Negative Congestive Heart Failure RESPIRATORY: Positive Chronic Obstructive Pulmonary Disease (COPD), Asthma, Smoking and Smoking Exposure; Negative Smoking Cessation Counseling or Clubbing GASTROINTESTINAL: Positive Gastrointestinal Disorders, Gastroesophageal Reflux Disease and Obesity (gastric bypass) GENITOURINARY: Positive Genitourinary Disorders and Renal Disease MUSCULOSKELETAL: Positive Arthritis ENT: Positive Cataracts ENDOCRINE: Positive Diabetes Mellitus Type 2; Negative Endocrine Disorders or Diabetes Mellitus Type 1 HEMATOLOGIC: Positive Anemia; Negative Blood Disorders or Sickle Cell Disease OTHER HISTORY: Negative Autoimmune Disease, Blood Transfusions, Blood Transfusion Reaction, Anesthesia Reactions or Cancer Surgical History SURGICAL: Positive Valve Replacement and Gastric Bypass Surgery Social History SMOKING STATUS: Smoking status: Former smoker SECOND HAND EXPOSURE: second hand exposure: Yes ALCOHOL: Alcohol Intake: Former ALCOHOL FREQUENCY: Alcohol Intake Frequency: holidays/special occasions only HOUSING: Housing: mobile home LIVES WITH: Lives With: Family Patient Portal Questionaires PHQ-9 PHQ-2 Over the last 2 weeks, how often have you been bothered by any of the following problems? 1. Little interest or pleasure in doing things: not at all PHQ-9 8. Moving or speaking so slowly that other people could have noticed? - Or the opposite - being so fidgety or restless that you have been moving around a lot more than usual: not at all Source: Developed by Drs. Jose Bloivar, Charlene Casillas, Hussein Sherwood and colleagues, with an educational yousuf from [employer]. Social History Living Situation History Lives With: Spouse Housing: mobile home Housing Other:: pt lives with Tobacco History Smoking Status: Former smoker Second Hand Smoke Exposure: Yes Alcohol History Alcohol Intake: Former Alcohol Intake Frequency: holidays/special occasions only Domestic Abuse History Do You Feel Safe at Home: Yes Review of Systems Report any current symptoms Only answer those that you have currently: Past Medical History Past Medical History Have you ever been diagnosed with any of the following: Neurological Problems Cerebrovascular Accident (CVA): Yes Seizures: No Cardiology Problems Atrial Fibrillation: Yes Hypercholesterolemia: Yes Congestive Heart Failure: No Valvular Heart Disease: Yes Respiratory Problems Chronic Obstructive Pulmonary Disease (COPD): Yes Asthma: Yes Smoking: Yes Smoking Cessation Counseling: No Smoking Exposure: Yes Clubbing: No Stomache/Intestinal Problems Gastroesophageal Reflux Disease: Yes Obesity: Yes (gastric bypass) Genital/Urinary Problems Renal Disease: Yes Musculoskeletal Problems Arthritis: Yes Head,Eye,Nose,Throat Problems Cataracts: Yes Endocrine Problems Diabetes Mellitus Type 1: No Diabetes Mellitus Type 2: Yes Blood Problems Anemia: Yes Sickle Cell Disease: No Other Problems Autoimmune Disease: No Blood Transfusions: No Blood Transfusion Reaction: No Anesthesia Reactions: No Cancer: No Surgical History Valve Replacement: Yes History of Present Illness HPI Narrative This 69-year-old female patient with past medical history for A-fib on amiodarone and warfarin, CKD III, COPD not on home oxygen, 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 She was managed for acute COPD exacerbation and atrial fibrilation in the hospital. Patient had problem with insurance coverage hence she was switched from eliquis to warfarin and was started on amiodarone after cardio consult for atrial fibrillation. Patient follows up with Dr Gaines, her outpatient beveling and edging machine operator. Patient reported that she feels improvement in her shortness of breath and only feels shortness of breath when she ambulates. Denies any other active concerns. She ran out from her amiodarone and was not taking them and needed refill for the medications. She continues to have irregular rhythm and feels palpitations. Plan was discussed with the patient that she would need INR testing in the lab today. Lab was called that patient's results will be required to be notified at Dr Gaines office once resulted. She was referred to Rack Loader, Dr Palmer for management of COPD. She was given refills for her medication amiodarone and albuterol inhaler. She was explained that she will need to get INR weekly or get an INR kit from cardiology clinic as warfarin is regulated with INR. She agreed to the plan and was reassured. 12/28/23: Patient was seen at the office today. Patients recent INR is 2.1 which is in therapeutic range. Patient has seen Dr Gaines and he plans to do cardioversion on January 02. She has appointment due in january with her Rack Loader. She had a concern for pain in her both knee joints more severe while walking. we ordered bilateral Knee XR to look for any pathology.She was advised to take Tylenolol 650 mg upto 3 times a day only for severe pain and stop taking aspirin due to interaction with warfarin. She will recieve an INR kit tomorrow and will follow up with Dr Gaines. She is currently taking warfarin 5 mg qday. She was advised to stop torsemide due to soft blood pressure and jardiance as her recent A1c was 5.3 and blood sugars were slightly above normal during hospital stay.We referred her to Dr Alves, Service Dog Trainer for her chronic kidney disease. We will follow on XR knee results.We will continue with rest of the management. 01/18/24: Patient was seen today in office. Patient was very teary and upset due to persistent symptoms of chest pain and shortness of breath. She reported having persistent palpitations and was concerned regarding her follow up with beveling and edging machine operator. Per Patient's wishes, we switched her Hot Tamale Worker, Dr Posadas. I personally spoke to Dr Posadas to have a second opinion for ablation on phone call. He agreed to have a second opinion however due to her severe pulmonary hypertension and mitral valve repair beveling and edging machine operator suggested that shes not a candidate for ablation but he will follow up for symptomatic Atrial fib management Of note,Previously, she had a unsuccessful ablation per chart. Therefore , cardiology rec currently to increase her Diltiazem to 60 mg three times a day and continue with amiodarone 100 mg two times a day. Rest of the management will remain the same. She was advise to follow up with beveling and edging machine operator, rn travel & Orthopedics after scheduling her appt. She was advised to do her INR levels weekly in our [facility] and I will follow up until she sees beveling and edging machine operator. She had C/O severe bilateral knee , she has osteoarthritis B/L per XR knee. Per ortho, patient needs to have XR 4V B/L knee weight bearing as well. She was given norco 5/325 only 14 tabs for her severe knee pain. Advised her to follow up after four weeks. 02/08/2024: Patient was seen today at the office visit for follow-up. Patient seem to be asymptomatic and really pleasant and satisfied with her new beveling and edging machine operator, Dr. Sherrie Posadas. She reported that she had less frequent episodes of palpitations and shortness of breath. Per cardiology, her Cardizem dose was changed to 60 mg twice daily 2 capsules at morning and night. Patient also visited textile knitter recommended to continue her inhalers albuterol, fluticasone inhalers. She also visited rn travel, Dr Alves. She has microalbuminuria. Labs showed normocytic anemia and kidney functions 30% with creatinine 1.8. We added losartan 25 mg for proteinuria. Medications were refilled. Patient has history of old CVA with ataxia there for she was advised to follow-up with her physical therapy outpatient. Patient reported having regurgitation with retrosternal burning therefore referral was made with radio operator ground, Dr. Mckeon. She received corticosteroids injections intra-articular last week feels significantly improved when she visited Dr. Lai, orthopedics. 07/01/2024: Patient was seen in the [facility] today. Patient reported to have cough from last 2 weeks associated with white phlegm which is present only when she goes to bed for sleeping. She is actively smoking cigarette 6 cigarettes every day and trying to cut back on that. Patient denied any fever any chills, chest pain, any other signs of infection. She did not had swelling in her lower extremities. She was taking her home medications with compliance. Patient was advised to follow-up next week with new orders chest x-ray, BMP, BNP and was given prescription of prednisone 5 mg for 7 days for possible concern for component of bronchospasm and the underlying setting of COPD as culprit for her productive cough. Examination was significant for cough elicited on prolonged expiration. Patient was advised to continue her home medications as prescribed and will likely be follow-up next week with lab results. 07/08/24: Pt came for follow up for labs and she showed improvement in her SOB after steroids course and albuterol inhaler in combination with other inhaler. Still compliants of having orhtopnea. Chest x-ray showed B/L edema and mod vasc congestion. BNP 115 and Kidney functions showing Cr 1.8 Electrolyes unremarkable.Patient was advised to take lasix extra dose half pill once in a week to get rid of extra fluids if SBP above 120 and DBP above 80 so taking 60 mg lasix once every week.Will be given referral for Mattress Stripper for eye examination due to haziness in right eye. 11/04/2024: Patient was seen and examined in the clinic today. Patient has been doing well and did not had any active concerns. She has been feeling very good and has been exercising every day. Examination showed improvement in bilateral air entry and no wheezing was heard. Patient wanted to have a prescription refill for amiodarone, diltiazem, atorvastatin and patient wished to change pharmacy to [facility]. Patient also wanted to have follow-up with hydraulic operator for eye checkup, GI follow-up for GERD and MUNITIONS HANDLER follow-up for breast examination. Referrals were given. Patient was advised to make an appointment with respective referrals. Medications were reviewed. Patient is getting her labs/blood work by rn travel, Dr Alves next month. Of note, patient's Lasix dose was reduced to 20 mg once daily by rn travel. 12/02/2024: Patient was seen and examined in the clinic. Patient reported extreme fatigability and burning sensation with numbness and tingling in both lower extremities. She reported that she had an episode of presyncope last week during her wedding. Examination showed no lower extremity edema or wheezing. She was having tachycardia irregularly irregular. She wanted to have prescription for her medications which was given. She was also complaining of muscle soreness and feeling tired. She also reported to have cold intolerance despite warm temperature outside.Plan is to order thyroid function test, iron panel and A1c as all the tests were performed last year. Additionally, atorvastatin was discontinued and pravastatin 40 mg was started given less risk of muscle weakness as compared to atorvastatin. Her blood pressure was really soft and was recommended to take Lasix every other day and follow-up with cardiology in a week. Follow-up in a week in clinic. 12/23/24: Patient was seen and examined in the clinic today. She reported to have fatigability and generalized weakness with dryness of the mouth and dizziness. Patient reported that she has severe headache and has been having low blood pressure. She followed up with beveling and edging machine operator a week ago and he recommended to stop taking diltiazem due to soft blood pressure and continue taking amiodarone and Lasix. Labs showed iron level, thyroid functions and A1c within normal limits. He was recommended to hold on Lasix for a week and prefer oral hydration with restarting Lasix on December 30 as every other day due to currently dehydrated clinical volume status. Patient reported to have improvement in her tingling and numbness with Lyrica and continued to had muscle soreness therefore, B12 and CMP were ordered. Her blood pressure was soft during this visit. Will follow-up with the labs. Patient was also complaining of pain in her knees therefore referral was given for physical therapy at least 3 times a week for 8 weeks and orthopedics referral for evaluation and possible another intra-articular steroid injection. Follow-up in a week. 12/30/24: Patient was seen and examined in the clinic with her today. She came for follow-up of her labs. She also reported to have symptoms of flu with cough associated with phlegm from past 3 days. She reported to have mild chills as well. She has been taking [id number] flu medication. Patient continued to have low blood pressure and appeared dehydrated. Labs were significant for B12 330. CHEM panel was significant for NEHA on CKD with creatinine 1.8 with GFR 31%. Thyroid function and A1c within normal limits. Patient was recommended to hold off on Lasix and follow-up with rn travel, Dr Alves within a week. She was prescribed with Augmentin 500 mg twice daily renally dose for 5 days for RTI. She reported to have improvement in her numbness and tingling sensation after Lyrica use. IM B12 shot was given and will be continued once every week. Patient is currently waiting for referral for PT and Ortho for knee pain. 02/10/25: Patient came to clinic for follow up. She was complaining of tremors from few weeks and has been taking albuterol inhaler 3 times a week at nighttime. She stated that previous month she received intra-articular steroid injection which helped with her knee joints and has started physical therapy as well. She was confused regarding her medications and therefore, she was provided with list of medications and each medicine was reviewed. Her blood pressure improved from last visits and Service Dog Trainer recommeneded to keep hold on lasix as she is clinically dehydrated and due to NEHA. She also reported that her INR jumped up to 4.1 and beveling and edging machine operator, Dr. Posadas recommended to hold warfarin and she will be repeating her INR upcoming week. She was advised to cut back on smoking which she has been trying to do currently smoking 3 cigarettes every day. Patient was given IM B12 shots and was recommended to follow-up in next 2 weeks to evaluate for improvement in tremors and clinical status. 02/24/2025: Patient came to the clinic for renal panel and PTH lab work follow-up. She stated that her shortness of breath has improved but she has some mild thrush due to use of inhalers. Her breathing inhalers including rescue inhaler and LABA/LAMA and ICS inhaler was discussed and she was shown a video for proper administration of the inhaler. She was switch to levalbuterol from albuterol due to complaint of tremors. She will also prescribed nystatin swish and swallow for oral thrush. Kidney functions showed BUN 28 and creatinine 2.0 with intact PTH 39. Service Dog Trainer, Dr Alves recommended to to monitor kidney functions for now and she will follow-up with the patient with repeat kidney functions and PTH in March 2025. Patient was informed regarding follow-up with rn travel. Patient's INR has been around [address] Posadas, beveling and edging machine operator has been following up with dosage of warfarin and patient is currently holding warfarin. She was given IM B12 shots. Follow-up in 3 weeks. 03/29/2025: Patient was seen in the clinic for follow-up. Patient reported feeling extremely weak and dizzy. Vitals revealed blood pressure 87/59, heart rate 114, respiratory 18 and saturating 97% room air. She has been loosing weight around 61 kg. She stated that she has been drinking atleast 2 bottles of water 1-1.5 L every day. Exam showed clear Breath sounds. Abdomen was soft mild tenderness in Rt Upper quadrant but roa was negative. She had a colonoscopy by GI specialist Dr Mckeon which showed hemorrhoids and erythermatous mucosa in sigmoid colon and biopsies were taken which were negative for dysplasia and microscopic colitis. Anti-trypsin were elevated and MARISOL was positive. Alpha-fetoprotein, anti-smooth were negative. Liver enzymes was slightly elevated. Hep panel was negative. Patient was informed regarding the results. Patient does have a follow-up with Dr. Mckeon on April 09, 2025. Complement including C3 and C4, [id number] DNA were ordered to screen for lupus. Anti-smooth muscle antibodies were not found. Patient was found to have iron deficiency anemia with severe low iron levels and she was informed that he will need IV iron infusion set up. She will benefit with IV iron therapy once for 2 weeks. Feraheme 510 mg x 2 once every week. Will be sending for further processing. Dr. Posadas, beveling and edging machine operator was called and informed regarding patient's of blood pressure and Cardizem was decreased to 180 mg CD every day and amiodarone was continued. Patient reported her INR was 4.0 and her warfarin has been adjusted by beveling and edging machine operator. She also reported to have pain in both knees and has been getting physical therapy. Patient had a episode of dizziness and was feeling very weak and was suggested to go to the ER for possible IV fluid resuscitation. ER doctor was notified as well for further evaluation. Patient's was at the bedside and she took the patient to the ER. 04/09/2025: Patient came to the clinic after being discharged from the hospital x 2 days ago. She was admitted in the hospital for A-fib RVR and was managed. Her medications were changed in the hospital stay. Amiodarone was discontinued and patient was started on Cardizem to 40 CD once daily and digoxin 0.25 mg once a day day along with midodrine 10 mg 3 times daily. Patient reported that she has been feeling better however still feels weaker and short of breath at times. Patient has been taking digoxin and Cardizem along with midodrine. Her blood pressure was noted to be low however she did not take her medication for midodrine and was informed to take her midodrine today. She has an appointment scheduled with Dr. Posadas on April 16, 2025. She was informed that she will need to get a blood level of serum digoxin on April 15, 2025 and follow-up with us in the center on April 16 as well after she will seek beveling and edging machine operator. Recommended to continue her medications. No medication changes were made. Prescription refill for redilate was given. 04/16/25: Patient was seen and examined in the clinic today. Patient reported improvement in her dizziness and blood pressure. She was advised to take her medications as prescribed. She reported that she was given a Holter monitor for a week to evaluate need of pacemaker or any rhythm abnormalities per beveling and edging machine operator. Serum digoxin level 1.9. Within normal range. She also reported to have chronic burning in the urine therefore phenazopyridine was given as patient cannot take nitrofurantoin due to drug interaction with warfarin increased bleeding risk. Blood pressure readings have been stable with MAP above 72. She is following with rn travel on coming 04/20/2025. Orthopedics, Dr. Lai advised her to get total knee replacement however she was suggested to follow-up with Holter monitor results in need of pacemaker first and once cardiology clearance is given she can go for elective total knee replacement afterwards. Warfarin bleeding risks were discussed. Recommended to continue all the medications as prescribed. Patient was not wheezing however for her COPD management she wanted to be followed up with the textile knitter that will be discussed later as it is not acute problem. Follow-up on May 28, 2025. Review of Systems Review of Systems Systems Reviewed: All systems reviewed, normal except as documented Objective/Exam Narrative Physical exam: General: Patient is not in acute distress, answering questions appropriately, making appropriate eye contact. HEENT: Normocephalic, atraumatic, EOMI, PERRLA, dry mucous membrane Cardiac: irregular rate and rhythm, normal S1/S2, systolic murmur grade 3 more on apex. Hypotension. Lungs: Bilateral clear breath sounds heard on auscultation. mild wheezing heard on coughing Abdomen: Soft, mildly tender in right upper quadrant. Roa sign negative., nondistended, positive bowel sounds in all quadrants. No guarding or rebound tenderness. Neurology:Alert and oriented x 3. Cranial nerves II to XII intact and patient able to move all 4 extremities. Extremities: Normal to inspection, no edema, no cyanosis, strong peripheral pulses. Psych: appropriate mood and affect. Assessment & Plan Diagnosis / Problem List (1) Acute hypotension: Status: Acute Assessment & Plan: - Patient reported to have improvement in her dizziness and blood pressure readings at home. - Blood pressure chart was reviewed and appears to be having improvement in blood pressure now. Plan: - Recommended to continue midodrine 10 mg 3 times daily - Encouraged on hydration - Currently not in fluid overload state (2) Atrial fibrillation with rapid ventricular response: Status: Acute Assessment & Plan: - Patient followed up with Dr. Posadas, beveling and edging machine operator and Holter monitor was given for a week to monitor heart rhythm for evaluation and requirement of pacemaker if needed Plan: - Recommended to continue Cardizem CD240 mg once daily, digoxin 0.25 mcg once daily - Continue midodrine 10 mg 3 times daily -Continue warfarin as dosed by cardiology clinic -Bleeding risks were discussed -Serum digoxin level 1.9 -Ordered anti-Porter antibodies to evaluate for SLE - Next digoxin level checked on May 21 - Follow-up appointment on May 28, 2025 to discuss Holter results (3) Cystitis: Status: Acute Assessment & Plan: - Patient has a chronic history of cystitis/burning in the urine Plan: - Nitrofurantoin cannot be given due to drug interaction with warfarin increasing bleeding risk -Phenazopyridine/urinary analgesic does not have drug interaction therefore was recommended to take as needed (4) Osteoarthritis (arthritis due to wear and tear of joints): Status: Acute Assessment & Plan: - Patient reports to have bilateral knee pain refractory to intra-articular steroid injection - Orthopedics, Dr. Lai recommended bilateral total knee replacement Plan: - Recommended to first evaluate for Holter monitor results and requirement of pacemaker and later on after cardiac clearance can get elective bilateral total knee replacement - Patient is agreeable to the plan Patient was seen and discussed with attending physician, Dr.Watanakunakorn Dr. Martha MD, PGY 3 Orders: Orders Sm Antibody* Today Digoxin 05/21/25 Advanced Care Planning Advance care planning discussed with:: patient Office Procedures [facility] Level of Care Nursing/Assessment Patient Status: Established Patient Nursing Assessment/Reassessment: Medication Reconciliation, Update PMH in EMR and Vital Signs Coordination of Care: Complex Care and Chronic Disease 1-5, Consent,records obtained, informed consent, Lab and Imaging orders and Results/Orders obtained Established Patient Charge Established Patient Point Assignment: 80 Established Patient Point Charge: Level 3 (80-115)
[2025-04-16 11:12] VITALS: BP 99/60; PULSE 106; RESP 18; TEMP 36.3; O2SAT 94
== END 2025-04-16 11:51 | disposition home or self-care (01) ==
LOC: HODAHC 11:01
PROVIDERS: PCP Student in an Organized Health Care Education/Training Program; Referring Provider Student in an Organized Health Care Education/Training Program; Supervising Provider Student in an Organized Health Care Education/Training Program; Visit Provider Student in an Organized Health Care Education/Training Program
DX: I95.9 Hypotension, unspecified (principal); I48.91 Unspecified atrial fibrillation; N30.20 Other chronic cystitis without hematuria; M17.0 Bilateral primary osteoarthritis of knee
CPT/HCPCS: 99213; G0463

== ENCOUNTER 2025-04-18 11:48 | Emergency (ER) | payer MEDICARE, SELFPAY ==
[2025-04-18 12:07] VITALS: BP 101/66; PULSE 65; RESP 15; TEMP 36.1; O2SAT 97; BMI 22.3
--- NOTE | 2025-04-18 12:18 | EKG_ITS ---
[facility] Test Date: 2025-04-18 Pat Name: LUZ ELENA HARRY Department: Room: - Gender: Female [employer] Reader: : 1955 Requested By: Vince Phelan (ADITI) Order Number: [id number] Reading MD: Vince Phelan (ADITI) Measurements Intervals [place] Rate: 80 P: ME: QRS: 35 QRSD: 99 T: 32 QT: 391 QTc: 452 Interpretive Statements ATRIAL FLUTTER/TACHYCARDIA POSSIBLE ANTERIOR MYOCARDIAL INFARCTION , PROBABLY OLD [30 ms Q WAVE IN V3/V4, OR R < 0.2 mV IN V4] ABNORMAL RHYTHM ECG Compared to ECG 04/05/2025 07:57:14 No significant changes /store/S0/[id number]
--- NOTE | 2025-04-18 12:18 | XR_ITS ---
Examination: PA chest single view FINDINGS: Upright PA chest single view Date and time: April 18, 2025, 12:42 PM Comparison April 05, 2025 INDICATIONS: Shortness of breath chest pressure today. FINDINGS: Moderate hyperexpansion Mild enlargement cardiac contour Prominent central pulmonary arteries Stable granuloma right lower lobe and calcifications in the right hilar region Stable pleural parenchymal scarring both bases No interval pneumonia or pulmonary edema Moderate osteopenia IMPRESSION: Suspicious for pulmonary artery hypertension No interval pneumonia or pulmonary edema
--- NOTE | 2025-04-18 12:19 | PD.EDRME ---
Rapid Medical Screening Exam RME Arrival date/time: 04/18/25 11:48 69-year-old female presents to the emergency department for complaints of shortness of breath and chest pressure Chief Complaint: Shortness of Breath/Dyspnea Vital signs: Vital Signs Temperature 97 F 04/18/25 12:07 Pulse Rate 65 04/18/25 12:07 Respiratory Rate 15 04/18/25 12:07 Blood Pressure 101/66 04/18/25 12:07 Pulse Oximetry (%) 97 04/18/25 12:07 Oxygen Delivery Method Room Air 04/18/25 12:07
[2025-04-18 12:45] LABS: Basophils # (Auto) 0.0 Thou/mm3 (0.0-0.2); Basophils % (Auto) 0 % (0-2.5); Eosinophils # (Auto) 0.1 Thou/mm3 (0.0-0.5); Eosinophils % (Auto) 2 % (0-10); Hematocrit 35.9 % (36.0-46.0); Hemoglobin 11.4 g/dL (12.0-16.0); Immature Granulocytes Auto 0.01 Thou/mm3 (0.00-0.00); Lymphocytes # (Auto) 0.9 Thou/mm3 (1.0-4.8); Lymphocytes % (Auto) 14 % (10-50); Mean Corpuscular HGB Conc 31.8 g/dl (31.0-37.0); Mean Corpuscular Hemoglobin 30.7 pg (25.0-35.0); Mean Corpuscular Volume 97 fL (80-100); Monocytes # (Auto) 0.4 Thou/mm3 (0.0-0.8); Monocytes % (Auto) 6 % (0-12); Neutrophils # (Auto) 5.4 Thou/mm3 (1.8-7.7); Neutrophils % (Auto) 78 % (37-80); Nucleated Red Blood Cell # 0.00 Thou/mm3 (0.00-0.00); Nucleated Red Blood Cell % 0 /100 WBC (0); Platelet Count 305 Thou/mm3 (140-440); RDW Standard Deviation 68.7 fL (36.4-46.3); Red Blood Count 3.71 Miln/mm3 (4.00-5.20); White Blood Count 6.8 Thou/mm3 (3.6-11.0)
[2025-04-18 13:04] LABS: B-Type Natriuretic Peptide 296 pg/mL (0-100)
[2025-04-18 13:08] LABS: Alanine Aminotransferase 79 U/L (10-49); Albumin, Serum 3.9 gm/dL (3.4-4.8); Albumin/Globulin Ratio 1.2 (1.2-2.2); Alkaline Phosphatase 71 U/L (46-116); Anion Gap 8 (7-16); Aspartate Amino Transferase 139 U/L (0-34); BUN/Creatinine Ratio 11 Ratio (12-20); Bilirubin,Total 0.8 mg/dL (0.3-1.2); Blood Urea Nitrogen 16 mg/dL (9-23); Calcium 9.7 mg/dL (8.3-10.6); Calcium (Corrected) 9.8 mg/dL (8.5-10.1); Carbon Dioxide 27.7 mMol/L (20.0-31.0); Chloride 103 mMol/L (98-107); Creatinine (Component) 1.5 mg/dL (0.6-1.3); Estimated Creatinine Clearance 30.6 mL/min (>60); Globulin 3.3 gm/dL (2.3-3.5); Glucose 83 mg/dL (74-106); Magnesium 1.7 mg/dL (1.6-2.6); Osmolality,Calculated 277 (275-295); Potassium 4.8 mMol/L (3.4-5.1); Sodium 139 mMol/L (136-145); Total Protein 7.2 gm/dL (5.7-8.2); Troponin I < 0.020 ng/mL (0.0-0.045); eGFR 37 See Note
[2025-04-18 13:16] LABS: Digoxin 3.0 ng/mL (0.8-2.0); Partial Thromboplastin Time 49.2 Seconds (22.0-36.0)
[2025-04-18 13:29] LABS: Prothrombin Time 59.2 Seconds (9.0-12.2)
[2025-04-18 13:30] LABS: INR 6.2 (0.9-1.3)
[2025-04-18 15:56] VITALS: BP 129/63; PULSE 63; RESP 21; TEMP 36.5; O2SAT 99
--- NOTE | 2025-04-18 16:06 | PD.EDSOB ---
ED SOB =RME/HPI General Chief Complaint: Shortness of Breath/Dyspnea Stated Complaint: TROUBLE BREATHING X 1 WK; WORSE TODAY Time Seen by Provider: 04/18/25 13:32 Arrival date/time: 04/18/25 11:48 RME / HPI RME / HPI Narrative: 69-year-old female presents to the emergency department for complaints of shortness of breath and chest pressure. Has been ongoing for the last 1 week, patient symptoms getting worse today. Patient denies any other complaints. Patient family told me that patient can only walk a couple of steps due to shortness of breath. Was started on digoxin a week ago and increased the diltiazem to 250 daily. Patient denies any fever denies any cough. Related Data Home Medications ?Medication ?Instructions ?Recorded ?Confirmed melatonin 3 mg tablet 3 mg PO HS 11/19/23 04/05/25 umeclidinium 62.5 mcg-vilanterol 1 inh inhalation QDAY PRN 11/19/23 04/05/25 25 mcg/actuation powdr for Dizziness Or Vertigo inhalation (Anoro Ellipta) Previous Rx's ?Medication ?Instructions ?Recorded fluticasone propionate 110 1 puff inhalation BID wheezing #12 02/08/24 mcg/actuation HFA aerosol inhaler grams pravastatin 40 mg tablet 40 mg PO QHS #90 tabs 12/02/24 pregabalin 25 mg capsule (Lyrica) 25 mg PO QHS #30 caps 12/02/24 benzonatate 100 mg capsule 100 mg PO BID PRN cough #30 caps 12/30/24 levalbuterol HCl 0.63 mg/3 mL 0.63 mg (3 mL) inhalation TID PRN 02/24/25 solution for nebulization shortness of breath or wheezing #90 mL albuterol sulfate 0.63 mg/3 mL 0.63 mg (3 mL) inhalation QID PRN 03/17/25 solution for nebulization wheezing #75 mL diltiazem HCl 240 mg 240 mg PO QDAY #90 caps 04/07/25 capsule,extended release 24 hr (Cardizem CD) ferrous sulfate 325 mg (65 mg 325 mg PO Q OTHER DAY #180 tabs 04/07/25 iron) tablet,delayed release midodrine 10 mg tablet 10 mg PO TID #90 tabs 04/07/25 polyethylene glycol 3350 17 gram 17 g PO QDAY PRN constipation #30 04/07/25 oral powder packet (Miralax) ea warfarin 5 mg tablet 5 mg PO QDAY #60 tabs 04/07/25 digoxin 125 mcg (0.125 mg) tablet 125 mcg PO QDAY #90 tabs 04/08/25 vitamin B complex-vitamin C-folic 1 tab PO QDAY #90 tabs 04/09/25 acid 0.8 mg tablet (Mica-Mary) phenazopyridine 95 mg tablet 95 mg PO Q8H PRN urinary analgesic 04/16/25 #30 tabs Allergies Allergy/AdvReac Type Severity Reaction Status Date / Time banana Allergy Severe Swelling Verified 04/18/25 11:51 of Lip/Tongue/Throat chicken derived Allergy Severe Hives Verified 04/18/25 11:51 heparin Allergy Severe Unconscious Verified 04/18/25 11:51 rice Allergy Intermediate CHOKES Verified 04/18/25 11:51 Review of Systems Review of Systems Narrative Review of Systems: Review of system reviewed and within normal limits except mentioned in HPI ED Exam Narrative Physical exam: VITAL SIGNS: Reviewed. GENERAL APPEARANCE: Alert and interactive, follows commands, no acute distress, HEAD AND FACE: Non-traumatic. ENT: PERRL, pink conjunctivitis, eyelid no trauma, Mucous membrane moist. NECK: Supple, nontender, no nuchal rigidity. CHEST: No tenderness, no crepitus, no paradoxical movement, no retractions. LUNGS: Clear, well ventilated, symmetric, no rales, no wheezing, no ronchi, no stridor, good breath sounds bilaterally. HEART: Regular rate, regular rhythm, no murmur, no gallops. ABDOMEN: Soft, positive bowel sounds, nondistended, no guarding, nontender, no rebound, no masses, RECTAL: Deferred. GENITAL: Deferred. NEUROLOGICAL: Gross motor function intact sensory function intact, Appropriate for age. MUSCULOSKELETAL: low back nontender, full range of motion. EXTREMITIES: Nontender, full range of motion. SKIN: Color pink, dry, no rash, no lacerations, no abrasions, no contusions. LYMPHATICS: Deferred. Course Quality Measures none Orders Category Date Time Status [employer] NOW Care 04/18/25 12:18 Active EKG (ED ONLY) *Do not use* NOW Care 04/18/25 12:18 Completed EKG (ED Only) Stat Exams 04/18/25 12:18 Draft XR chest 1V portable Stat Exams 04/18/25 12:18 Completed B-Type Natriuretic Peptide Stat Lab 04/18/25 12:36 Completed CBC Stat Lab 04/18/25 12:36 Completed Comprehensive Metabolic Panel Stat Lab 04/18/25 12:36 Completed Digoxin Stat Lab 04/18/25 12:36 Completed Magnesium Stat Lab 04/18/25 12:36 Completed Partial Thromboplastin Time Stat Lab 04/18/25 12:36 Completed Prothrombin Time with INR Stat Lab 04/18/25 12:36 Completed Troponin I Stat Lab 04/18/25 12:36 Completed Vital Signs Vital signs: Vital Signs Temperature 97 F 04/18/25 12:07 Pulse Rate 65 04/18/25 12:07 Respiratory Rate 15 04/18/25 12:07 Blood Pressure 101/66 04/18/25 12:07 Pulse Oximetry (%) 97 04/18/25 12:07 Oxygen Delivery Method Room Air 04/18/25 12:07 Shortness of Breath / Dyspnea MDM Narrative MDM Narrative:: 69-year-old female presents to the emergency department for complaints of shortness of breath and chest pressure. Has been ongoing for the last 1 week, patient symptoms getting worse today. Patient denies any other complaints. Patient family told me that patient can only walk a couple of steps due to shortness of breath. Was started on digoxin a week ago and increased the diltiazem to 250 daily. Patient denies any fever denies any cough. EKG showed chronic A-fib, ventricular rate of 80 bpm, no ST segment elevation or depression noted. Patient digoxin level today was noted to be 3.0, patient's PT/INR was also noted to be 59.2, INR was 6.2. Currently patient is not having any active bleeding. Patient's creatinine was noted to be 1.5, BUN of 16, potassium 4.8. Currently patient is satting 98% on room air. Case discussed with patient's contract negotiation manager, Dr. Posadas, told me that patient is okay to go home, there is no need to admit this patient at this time patient is stable, patient is to stop completely her digoxin and do not take Coumadin tomorrow and Sunday. Patient agrees with the plan. Patient data External records reviewed:: [facility] previous records Clinical information provided by:: family Social determinants that could affect healthcare access:: none Patient has the following chronic illnesses:: Chronic A-fib, hypertension, How is presenting disease/condition affected by chronic disease/condition?: exacerbated by Evaluation data The following diagnostics were reviewed and interpreted by me:: lab results, radiology exam(s) and EKG tracing(s) Lab and/or radiology exams considered but not ordered:: None Interpretation Summary: See results MDM Medications / Prescriptions Medications or Prescriptions considered but not ordered:: None Medication administrations:: none Consultations Consultation(s) initiated? (list below): No Diagnosis Shortness of Breath Differential Diagnosis: acute exacerbation of chronic obstructive airways disease, congestive heart failure and community acquired pneumonia Most likely diagnosis given after review of the tests above:: Shortness of breath, elevated INR, elevated digoxin Admission Indicated Admission indicated?: not indicated Admission Request Was there a request for admission?: No Disposition Plan Disposition Plan: Discharge Discharge Attestation Discharge Attestation: The patient and all family members were given an opportunity to ask questions and understood the discharge instructions. Discharge instructions specifically effects, indications for sooner follow up or return to the emergency department, and the expected course of current diagnosis. Patient condition: Stable Discharge Plan Plan Patient Disposition: HOME (Self Care) Discharge Disposition comment: Stable Prescriptions/Referrals Prescriptions/Med Rec: No Action pregabalin [Lyrica] 25 mg capsule 25 mg PO QHS Qty: 30 2RF pravastatin 40 mg tablet 40 mg PO QHS Qty: 90 2RF Mica-Mary 0.8 mg tablet 1 tab PO QDAY Qty: 90 2RF fluticasone propionate 110 mcg/actuation HFA aerosol inhaler 1 puff INHALATION BID Qty: 12 3RF benzonatate 100 mg capsule 100 mg PO BID PRN (Reason: cough) Qty: 30 0RF levalbuterol HCl 0.63 mg/3 mL solution for nebulization 0.63 mg inhalation TID PRN (Reason: shortness of breath or wheezing) Qty: 90 1RF albuterol sulfate 0.63 mg/3 mL solution for nebulization 0.63 mg inhalation QID PRN (Reason: wheezing) Qty: 75 1RF phenazopyridine 95 mg tablet 95 mg PO Q8H PRN (Reason: urinary analgesic) Qty: 30 0RF melatonin 3 mg Tablet 3 mg PO HS umeclidinium-vilanterol [Anoro Ellipta] 62.5-25 mcg/actuation Blister With Device 1 inh INHALATION QDAY PRN (Reason: Dizziness Or Vertigo) midodrine 10 mg tablet 10 mg PO TID Qty: 90 0RF warfarin 5 mg tablet 5 mg PO QDAY Qty: 60 0RF diltiazem HCl [Cardizem CD] 240 mg capsule,extended release 24hr 240 mg PO QDAY Qty: 90 0RF ferrous sulfate 325 mg (65 mg iron) tablet,delayed release (DR/EC) 325 mg PO Q OTHER DAY Qty: 180 0RF polyethylene glycol 3350 [Miralax] 17 gram powder in packet 17 g PO QDAY PRN (Reason: constipation) Qty: 30 0RF digoxin 125 mcg (0.125 mg) tablet 125 mcg PO QDAY Qty: 90 0RF Referrals: Jeff Thomas MD [Primary Care Provider] - In 1 week Problem List Clinical Impression: Elevated INR, SOB (shortness of breath), Elevated digoxin level Patient/Caregiver Discharge Instructions Discharge Activity: activity as tolerated Education Materials: Shortness of Breath Coping Additional Instructions: Thank you for the opportunity for serving you today. You are stable for discharged . You are advised to: Follow-up with your contract negotiation manager, Dr. Posadas, this coming Sunday Return to ED for worsening of symptoms Increase oral fluids Completely stop your digoxin. Do not take your Coumadin tomorrow and Sunday, check your PT/INR Sunday Print Language: Romansh Stand Alone Forms: [facility] Award Info., Patient Portal Info Letter
[2025-04-18 16:59] VITALS: BP 127/60; PULSE 62; RESP 22; TEMP 36.5; O2SAT 98
== END 2025-04-18 17:12 | disposition home or self-care (01) ==
PROVIDERS: Nurse Practitioner Primary Care; Emergency Provider Emergency Medicine; PCP Student in an Organized Health Care Education/Training Program
DX: R79.1 Abnormal coagulation profile (principal); R06.02 Shortness of breath; R07.89 Other chest pain; I48.92 Unspecified atrial flutter; I48.20 Chronic atrial fibrillation, unspecified; I10 Essential (primary) hypertension; Z79.01 Long term (current) use of anticoagulants
CPT/HCPCS: 36415; 71045; 80053; 80162; 83735; 83880; 84484; 85025; 85610; 85730; 93005; 99283

== ENCOUNTER 2025-04-28 08:30 | Outpatient (AMB) | payer MEDICARE, SELFPAY ==
--- NOTE | 2025-04-28 08:52 | PD.ORTHCLVIS ---
Vital signs 04/28/25 08:53 Height 1.63 m Height Method Measured Weight 58.088 kg Weight Measurement Method Standing Scale BMI 21.8 BP 98/64 Blood Pressure Source Automatic Cuff Blood Pressure Location Left Upper Arm Position Sitting Respiration 18 Pulse 32 L Pulse Source Monitor Temp 97.1 F Temp Source Temporal Artery Scan Pulse Oximetry (%) 97 Oxygen Delivery Method Room Air Med/Allergies Allergies & Medications Allergies banana Allergy (Severe, Verified 04/28/25 08:53) Swelling of Lip/Tongue/Throat chicken derived Allergy (Severe, Verified 04/28/25 08:53) Hives heparin Allergy (Severe, Verified 04/28/25 08:53) Unconscious rice Allergy (Intermediate, Verified 04/28/25 08:53) CHOKES Medication Reconciliation melatonin 3 mg tablet 3 mg PO HS 11/19/23 [History Confirmed 04/28/25] umeclidinium 62.5 mcg-vilanterol 25 mcg/actuation powdr for inhalation (Anoro Ellipta) 1 inh inhalation QDAY PRN Dizziness Or Vertigo 11/19/23 [History Confirmed 04/28/25] fluticasone propionate 110 mcg/actuation HFA aerosol inhaler 1 puff inhalation BID wheezing #12 grams 02/08/24 [Rx Confirmed 04/28/25] pravastatin 40 mg tablet 40 mg PO QHS #90 tabs 12/02/24 [Rx Confirmed 04/28/25] pregabalin 25 mg capsule (Lyrica) 25 mg PO QHS #30 caps 12/02/24 [Rx Confirmed 04/28/25] benzonatate 100 mg capsule 100 mg PO BID PRN cough #30 caps 12/30/24 [Rx Confirmed 04/28/25] levalbuterol HCl 0.63 mg/3 mL solution for nebulization 0.63 mg (3 mL) inhalation TID PRN shortness of breath or wheezing #90 mL 02/24/25 [Rx Confirmed 04/28/25] albuterol sulfate 0.63 mg/3 mL solution for nebulization 0.63 mg (3 mL) inhalation QID PRN wheezing #75 mL 03/17/25 [Rx Confirmed 04/28/25] diltiazem HCl 240 mg capsule,extended release 24 hr (Cardizem CD) 240 mg PO QDAY #90 caps 04/07/25 [Rx Confirmed 04/28/25] ferrous sulfate 325 mg (65 mg iron) tablet,delayed release 325 mg PO Q OTHER DAY #180 tabs 04/07/25 [Rx Confirmed 04/28/25] midodrine 10 mg tablet 10 mg PO TID #90 tabs 04/07/25 [Rx Confirmed 04/28/25] polyethylene glycol 3350 17 gram oral powder packet (Miralax) 17 g PO QDAY PRN constipation #30 ea 04/07/25 [Rx Confirmed 04/28/25] warfarin 5 mg tablet 5 mg PO QDAY #60 tabs 04/07/25 [Rx Confirmed 04/28/25] digoxin 125 mcg (0.125 mg) tablet 125 mcg PO QDAY #90 tabs 04/08/25 [Rx Confirmed 04/28/25] vitamin B complex-vitamin C-folic acid 0.8 mg tablet (Mica-Mary) 1 tab PO QDAY #90 tabs 04/09/25 [Rx Confirmed 04/28/25] phenazopyridine 95 mg tablet 95 mg PO Q8H PRN urinary analgesic #30 tabs 04/16/25 [Rx Confirmed 04/28/25] Exam Exam Patient is in no acute distress and is cooperative with the examination today. Breathing is nonlabored. In no respiratory distress. Bilateral extremities were evaluated and demonstrates sensation intact to light touch. Palpable pedal pulses are present. No significant edema is present. Bilateral hips were examined. The patient has no pain with log roll of the hips. Internal rotation to 30 degrees and external rotation to 30 degrees is painless. Negative FADIR. The left knee was examined. The left knee is in [varus] alignment. Range of motion from [0-115] degrees. Knee is stable to varus and valgus as well as AP translation with <5mm. Patient has a [negative] McMurrays. There is [no] pain with patellofemoral compression and [no] crepitus noted. The knee is [tender] to palpation [medially]. The right knee was also examined. The right knee is in [varus] alignment. Range of motion from [0-120] degrees. Knee is stable to varus and valgus as well as AP translation with <5mm. Patient has a [negative] McMurrays. There is [no] pain with patellofemoral compression and [no] crepitus noted. The knee is [tender] to palpation [medially]. X-rays were reviewed by me today. This demonstrates medial joint space narrowing of moderate severity as well as osteophytes. Assessment and Plan Problem List (1) Osteoarthritis of knee: Qualifiers: Osteoarthritis type: other secondary Laterality: bilateral Qualified Code(s): M17.4 - Other bilateral secondary osteoarthritis of knee Status: Acute Plan: Patient is a 68-year-old female with bilateral knee osteoarthritis of moderate severity. She does have a valve. She is on chronic anticoagulation. We discussed nonoperative options as she has not tried much. We discussed Tylenol as well as injections of cortisone. She is getting a heart procedure tomorrow and thus it may not be a good idea to give her injections today as this may interfere with her test. We will thus get her set up for cortisone injections in approximately 2 weeks (2) Osteoarthritis (arthritis due to wear and tear of joints): Status: Acute (3) Knee pain, bilateral: Status: Acute Advanced Care Planning Discussion Advance care planning discussed with:: patient Office Procedures [facility] Level of Care Nursing/Assessment Patient Status: Established Patient Nursing Assessment/Reassesment: Medication Reconciliation, Orthostatic Vitals, Update PMH in EMR and Vital Signs Coordination of Care: Complex Care and Chronic Disease 1-5, Education Complex Pt/Fam, Consent,records obtained, informed consent, Lab and Imaging orders, Results/Orders obtained and Staff clarify orders Established Patient Charge Established Patient Point Assignment: 120 Established Patient Point Charge: EP Level 4 (120-155) MA Intake Visit Data Collection New Patient or Established: Established Patient (seen at [facility] within 3 years) Reason for Visit:: BL KNEE INJ FOLLOW UP Seen by Clinical Staff ONLY (RN/MA): No Human Resources Department Supervisor Required: No PCP or OBGYN visit in last 3 months: Yes Hx Now: No Do You Feel Safe at Home: Yes Authorities Contacted: N/A Questionairres Past Medical History Past Medical History Have you ever been diagnosed with any of the following: Neurological Problems Cerebrovascular Accident (CVA): No Transient Ischemic Attacks (TIA): Yes Seizures: No Cardiology Problems Atrial Fibrillation: Yes Hypercholesterolemia: Yes Congestive Heart Failure: No Valvular Heart Disease: Yes Edema: No Hypertension: No Hypotension: Yes Respiratory Problems Chronic Obstructive Pulmonary Disease (COPD): Yes Asthma: No Sleep Apnea: No Smoking: Yes Smoking Cessation Counseling: No Smoking Exposure: Yes Clubbing: No Stomache/Intestinal Problems Gastroesophageal Reflux Disease: Yes Obesity: Yes (gastric bypass) Genital/Urinary Problems Renal Disease: Yes Kidney Stones: No Musculoskeletal Problems Arthritis: Yes (knee) Head,Eye,Nose,Throat Problems Cataracts: Yes Endocrine Problems Diabetes Mellitus Type 1: No Diabetes Mellitus Type 2: Yes Blood Problems Anemia: Yes Sickle Cell Disease: No Psychologic Problems Depression: No Anxiety: No Other Problems Falls: No Blood Transfusions: No Blood Transfusion Reaction: No Anesthesia Reactions: No Cancer: No Surgical History Valve Replacement: Yes Pacemaker: No Subjective Visit Visit for: follow up visit, knee and injections Immunization / Flu Flu Vaccine in the Last 12 Months: No Flu Vaccine Exclusion Criteria: No Exclusion Criteria History of Present Illness Chief complaint: bl knee pain Tessie is a pleasant 69-year-old female with bilateral knee pain. We have treated her conservatively with injections in the past. She does have patella tendinitis as well. She would like repeat cortisone injections as the last ones have lasted for more than 8 months Pain Pain level (0-10): 6 Pain duration: ON AND OFF Pain location: inside (medial) and anterior Pain quality: dull and aching Pain timing: increases with activity Ambulatory data Ambulatory device: none Treatments Number of previous injections: 2 Improvement with previous injections: Yes Improvement with PT: No Improvement with NSAIDS: no Review of Systems Review of Systems: All systems negative unless otherwise noted in HPI.
[2025-04-28 08:53] VITALS: BP 98/64; PULSE 32; RESP 18; TEMP 36.2; O2SAT 97; BMI 21.8
== END 2025-04-28 09:05 | disposition home or self-care (01) ==
LOC: HODSRG 08:30
PROVIDERS: PCP Student in an Organized Health Care Education/Training Program; Referring Provider Student in an Organized Health Care Education/Training Program; Supervising Provider Orthopaedic Surgery Adult Reconstructive Orthopaedic Surgery; Visit Provider Orthopaedic Surgery Adult Reconstructive Orthopaedic Surgery
DX: M17.4 Other bilateral secondary osteoarthritis of knee (principal); M25.561 Pain in right knee; M25.562 Pain in left knee; M76.50 Patellar tendinitis, unspecified knee; E78.00 Pure hypercholesterolemia, unspecified; I48.91 Unspecified atrial fibrillation; Z86.73 Personal history of transient ischemic attack (TIA), and cerebral infarction without residual deficits; J44.9 Chronic obstructive pulmonary disease, unspecified; K21.9 Gastro-esophageal reflux disease without esophagitis; E11.9 Type 2 diabetes mellitus without complications; E66.9 Obesity, unspecified; Z68.21 Body mass index [BMI] 21.0-21.9, adult; Z98.84 Bariatric surgery status
CPT/HCPCS: 99214; G0463

== ENCOUNTER 2025-04-29 06:39 | Day surgery (SDC) | payer MEDICARE, SELFPAY ==
--- NOTE | 2025-04-28 07:00 | EKG_ITS ---
[facility] Test Date: 2025-04-28 Pat Name: LUZ ELENA HARRY Department: Room: - Gender: Female [employer] Referral Clerk: DORA : 1955 Requested By: Amaris Denton Order Number: [id number] Reading MD: Amaris Denton Measurements Intervals [place] Rate: 63 P: [place]: QRS: 78 QRSD: 99 T: 56 QT: 369 QTc: 380 Interpretive Statements ATRIAL FIBRILLATION POSSIBLE ANTERIOR MYOCARDIAL INFARCTION , OF INDETERMINATE AGE Compared to ECG 04/18/2025 12:22:33 Atrial flutter no longer present Myocardial infarct finding still present /store/S0/[id number].pdf
[2025-04-28 08:56] LABS: Basophils # (Auto) 0.0 Thou/mm3 (0.0-0.2); Basophils % (Auto) 1 % (0-2.5); Eosinophils # (Auto) 0.2 Thou/mm3 (0.0-0.5); Eosinophils % (Auto) 4 % (0-10); Hematocrit 34.2 % (36.0-46.0); Hemoglobin 10.7 g/dL (12.0-16.0); Immature Granulocytes Auto 0.03 Thou/mm3 (0.00-0.00); Lymphocytes # (Auto) 0.9 Thou/mm3 (1.0-4.8); Lymphocytes % (Auto) 15 % (10-50); Mean Corpuscular HGB Conc 31.3 g/dl (31.0-37.0); Mean Corpuscular Hemoglobin 30.9 pg (25.0-35.0); Mean Corpuscular Volume 99 fL (80-100); Monocytes # (Auto) 0.5 Thou/mm3 (0.0-0.8); Monocytes % (Auto) 7 % (0-12); Neutrophils # (Auto) 4.6 Thou/mm3 (1.8-7.7); Neutrophils % (Auto) 73 % (37-80); Nucleated Red Blood Cell # 0.00 Thou/mm3 (0.00-0.00); Nucleated Red Blood Cell % 0 /100 WBC (0); Platelet Count 234 Thou/mm3 (140-440); RDW Standard Deviation 69.5 fL (36.4-46.3); Red Blood Count 3.46 Miln/mm3 (4.00-5.20); White Blood Count 6.3 Thou/mm3 (3.6-11.0)
[2025-04-28 08:58] LABS: Anion Gap 9 (7-16); BUN/Creatinine Ratio 13 Ratio (12-20); Blood Urea Nitrogen 17 mg/dL (9-23); Calcium 9.8 mg/dL (8.3-10.6); Carbon Dioxide 26.6 mMol/L (20.0-31.0); Chloride 106 mMol/L (98-107); Creatinine (Component) 1.3 mg/dL (0.6-1.3); Glucose 83 mg/dL (74-106); Osmolality,Calculated 283 (275-295); Potassium 4.2 mMol/L (3.4-5.1); Sodium 142 mMol/L (136-145); eGFR 45 See Note
[2025-04-28 09:19] LABS: INR 1.5 (0.9-1.3); Partial Thromboplastin Time 32.2 Seconds (22.0-36.0); Prothrombin Time 16.3 Seconds (9.0-12.2)
[2025-04-29] VITALS (12 sets, daily range): BP systolic 94–127; BP diastolic 46–82; PULSE 60–81; RESP 12–18; TEMP 36.3–36.8; O2SAT 96–100; BMI 21.7
[2025-04-29] MEDS: DIAZEPAM 5 MG TABLET PO (08:02)
--- NOTE | 2025-04-29 14:53 | PC.NURSE ---
1110 patient is sleepy and arousable, breathing unlabored, s/p LHC and RHC by Dr. Posadas, arterial sheath has been removed in laborer concrete paving OR and closed using angiosial closure device, venous sheath present to right groin, no bleeding or hematoma noted. Patient taken to laborer concrete paving bay 6 for 2 hour recovery. Ok to remove venous sheath now. Pt to resume coumadin today (5mg for 2 days, then 2.5mg daily starting day 3). 1122 venous sheath removed, manual pressure applied 1132 manual pressure removed, site covered with gauzea and large tegaderm, no bleeding or hematoma noted. 1345 patient is awake, alert, breathing unlabored, dressing to right groin dry with no bleeding or hematoma, patient able to tolerate lunch tray with no nausea or vomiting, meets discharge criteria, discharge instructions given to patient and Shaquille, patient discharged home in wheelchair with all belongings including cane.
--- NOTE | 2025-04-29 17:21 | ESOP_ITS ---
RE: LUZ ELENA HARRY : 1955 DATE OF OPERATION: 04/29/2025 PROCEDURES PERFORMED: 1. Diagnostic right and left heart cardiac catheterization, selective coronary angiogram, left ventricular angiogram, CPT 81757. 2. Conscious sedation 30 minute duration. 3. Ultrasound guidance access of the right radial artery. 4. Iliofemoral angiography followed by Angio-Seal deployment. DIAGNOSES: History of mitral valve replacement, moderate to severe pulmonary hypertension, possible group 1 pulmonary hypertension versus heart failure or COPD causing pulmonary hypertension. HISTORY AND INDICATIONS: The patient is a 69-year-old -[place] female with a history of mitral valve regurgitation, underwent mitral valve repair surgery, atrial fibrillation, remains in atrial fibrillation. Again, shortness of breath on exertion, has COPD, and PA pressure on echocardiogram was 65 mmHg and there was concern whether the patient has group 1 pulmonary hypertension or group 2 versus 3, hence the right and left cardiac catheterization was recommended for assessment of etiology of pulmonary hypertension, also assessed coronary artery disease and left ventricular function and assessment of mitral regurgitation. DESCRIPTION OF PROCEDURE: The patient was brought to the cardiac catheterization laboratory, she was given 2 mg Versed and 50 mcg fentanyl for sedation. Right femoral approach taken. Right femoral artery was cannulated with micropuncture technique. Ultrasound guidance was used, 5-Kiswahili sheath introduced, right femoral vein was cannulated by micropuncture technique, 7-Kiswahili sheath introduced. Right heart catheter was performed by [place] catheter. PGY2, Dr. Kerwin Tineo also assisted and he performed most of the procedure. Right heart pressures were measured. Subsequently, left heart catheter was performed by FR4 5-Kiswahili diagnostic catheter. Left ventricular pressure measured. Left ventricular angiogram performed. Subsequently, selective right and left coronary angiograms were performed with Carmen catheters, 5-Kiswahili catheters, FR4, FN4 with excellent results. Following the procedure, iliofemoral angiogram was performed and Angio-Seal was deployed successfully with excellent hemostasis. The patient is on Coumadin and will be restarted on Coumadin 5 mg for 2 days followed by 2.5 mg daily. Cardiac catheterization showed following findings: HEMODYNAMICS: Right atrial pressure was found to be 4 mmHg, RV pressure 40/4 mmHg, pulmonary artery pressure is 43/10, mean pulmonary artery pressure is 24 mmHg, pulmonary artery wedge pressure 12 mmHg, aortic pressure 119/70, and left ventricular pressure 119/2, EDP 10. Left ventricular angiogram showed evidence of mitral valve successful repair. No mitral regurgitation. Normal left ventricular valve motion. Ejection fraction of 60%. Coronary angiogram showed following findings. Right coronary artery: Large dominant gives of PDA and PL branches are normal. Left coronary system: Left main coronary artery is normal. Left anterior descending artery is normal. Circumflex artery is normal. No significant obstructive coronary artery disease detected. SUMMARY OF FINDINGS: Suggestive of: 1. Mild pulmonary artery hypertension, PA mean pressure 24, systolic 43, diastolic 10, and normal pulmonary artery wedge pressure. 2. Successful mitral valve repair. No evidence of mitral regurgitation. 3. Normal left ventricular function. 4. Normal nonobstructive epicardial coronary arteries. RECOMMENDATIONS: The patient is reassured that there is no significant obstructive coronary artery disease. She does have mild pulmonary artery hypertension with normal wedge pressure, ruling out heart failure as a cause of pulmonary hypertension. This is mild pulmonary hypertension, unlikely to be PAH group 1. Most likely etiology for this is chronic obstructive pulmonary disease, most likely group 3 pulmonary hypertension. Treatment will be oxygen supplement and treatment of underlying COPD. No need for any pulmonary arterial hypertension specific drug therapy. DT: 16:32:43 TT: 17:14:00 Ref: [id number] - TID: [id number]
== END 2025-04-29 13:45 | disposition home or self-care (01) ==
PROVIDERS: PCP Student in an Organized Health Care Education/Training Program; Referring Provider Internal Medicine Cardiovascular Disease; Visit Provider Internal Medicine Cardiovascular Disease
PROC: (CPT 93460; principal; 2025-04-29 08:45)
DX: I20.89 Other forms of angina pectoris (principal); I48.21 Permanent atrial fibrillation; J44.9 Chronic obstructive pulmonary disease, unspecified; N18.31 Chronic kidney disease, stage 3a; E78.00 Pure hypercholesterolemia, unspecified; Z95.4 Presence of other heart-valve replacement; I27.23 Pulmonary hypertension due to lung diseases and hypoxia; Z01.810 Encounter for preprocedural cardiovascular examination
CPT/HCPCS: 93460; 36415; 80048; 85025; 85610; 85730; 93005; 99152; A4216; A4649; C1751; C1760; C1894; J0153; J0168; J0282; J0461; J0583; J2250; J2312; J2371; J3010; J3490; Q9967; A9270; C1725

== ENCOUNTER 2025-05-05 10:32 | Outpatient (AMB) | payer MEDICARE, SELFPAY ==
--- NOTE | 2025-05-05 10:42 | ORTHONT_ITS ---
Vital signs 05/05/25 10:43 Height 1.63 m Height Method Stated Weight 57.833 kg Weight Measurement Method Standing Scale BMI 21.7 BP 97/67 Blood Pressure Source Automatic Cuff Blood Pressure Location Left Upper Arm Position Sitting Respiration 19 Pulse 129 H Pulse Source Monitor Temp 97.1 F Temp Source Temporal Artery Scan Pulse Oximetry (%) 97 Oxygen Delivery Method Room Air Med/Allergies Allergies & Medications Allergies banana Allergy (Severe, Verified 05/05/25 10:44) Swelling of Lip/Tongue/Throat chicken derived Allergy (Severe, Verified 05/05/25 10:44) Hives heparin Allergy (Severe, Verified 05/05/25 10:44) Unconscious rice Allergy (Intermediate, Verified 05/05/25 10:44) CHOKES Medication Reconciliation melatonin 3 mg tablet 3 mg PO HS 11/19/23 [History Confirmed 05/05/25] umeclidinium 62.5 mcg-vilanterol 25 mcg/actuation powdr for inhalation (Anoro Ellipta) 1 inh inhalation QDAY PRN Dizziness Or Vertigo 11/19/23 [History Confirmed 05/05/25] fluticasone propionate 110 mcg/actuation HFA aerosol inhaler 1 puff inhalation BID wheezing #12 grams 02/08/24 [Rx Confirmed 05/05/25] pravastatin 40 mg tablet 40 mg PO QHS #90 tabs 12/02/24 [Rx Confirmed 05/05/25] pregabalin 25 mg capsule (Lyrica) 25 mg PO QHS #30 caps 12/02/24 [Rx Confirmed 05/05/25] benzonatate 100 mg capsule 100 mg PO BID PRN cough #30 caps 12/30/24 [Rx Confirmed 05/05/25] levalbuterol HCl 0.63 mg/3 mL solution for nebulization 0.63 mg (3 mL) inhalation TID PRN shortness of breath or wheezing #90 mL 02/24/25 [Rx Confirmed 05/05/25] albuterol sulfate 0.63 mg/3 mL solution for nebulization 0.63 mg (3 mL) inhalation QID PRN wheezing #75 mL 03/17/25 [Rx Confirmed 05/05/25] diltiazem HCl 240 mg capsule,extended release 24 hr (Cardizem CD) 240 mg PO QDAY #90 caps 04/07/25 [Rx Confirmed 05/05/25] ferrous sulfate 325 mg (65 mg iron) tablet,delayed release 325 mg PO Q OTHER DAY #180 tabs 04/07/25 [Rx Confirmed 05/05/25] midodrine 10 mg tablet 10 mg PO TID #90 tabs 04/07/25 [Rx Confirmed 05/05/25] polyethylene glycol 3350 17 gram oral powder packet (Miralax) 17 g PO QDAY PRN constipation #30 ea 04/07/25 [Rx Confirmed 05/05/25] warfarin 5 mg tablet 5 mg PO QDAY #60 tabs 04/07/25 [Rx Confirmed 05/05/25] warfarin 5 mg tablet (Jantoven) 5 mg PO QDAY 04/29/25 [History Confirmed 05/05/25] Exam Exam Patient is in no acute distress and is cooperative with the examination today. Breathing is nonlabored. In no respiratory distress. Bilateral extremities were evaluated and demonstrates sensation intact to light touch. Palpable pedal pulses are present. No significant edema is present. Bilateral hips were examined. The patient has no pain with log roll of the hips. Internal rotation to 30 degrees and external rotation to 30 degrees is painless. Negative FADIR. The left knee was examined. The left knee is in [varus] alignment. Range of motion from [0-115] degrees. Knee is stable to varus and valgus as well as AP translation with <5mm. Patient has a [negative] [place]. There is [no] pain with patellofemoral compression and [no] crepitus noted. The knee is [tender] to palpation [medially]. The right knee was also examined. The right knee is in [varus] alignment. Range of motion from [0-120] degrees. Knee is stable to varus and valgus as well as AP translation with <5mm. Patient has a [negative] [place]. There is [no] pain with patellofemoral compression and [no] crepitus noted. The knee is [tender] to palpation [medially]. X-rays were reviewed by me today. This demonstrates medial joint space narrowing of moderate severity as well as osteophytes. Assessment and Plan Problem List (1) Osteoarthritis of knee: Qualifiers: Laterality: bilateral Osteoarthritis type: other secondary Qualified Code(s): M17.4 - Other bilateral secondary osteoarthritis of knee Status: Acute Plan: Patient is a 68-year-old female with bilateral knee osteoarthritis of moderate severity. She does have a valve. She is on chronic anticoagulation. We discussed nonoperative options as she has not tried much. We discussed Tylenol as well as injections of cortisone. Recommend knee cortisone injection as patient would like to proceed with conservative treatment at this time. The risks and benefits of the procedure were reviewed with the patient and patient gave verbal consent to continue with the procedure. Procedure: performed by Dr. Lai Using sterile technique the Right knee was thoroughly prepped with alcohol, and approximately 1 cc of Depo-Medrol 80mg/mL and 4 cc of 0.2% ropivacaine was injected without resistance into the medial tibial femoral joint space. The patient tolerated the procedure. Recommend knee cortisone injection as patient would like to proceed with conservative treatment at this time. The risks and benefits of the procedure were reviewed with the patient and patient gave verbal consent to continue with the procedure. Procedure: performed by Dr. Lai Using sterile technique the left knee was thoroughly prepped with alcohol, and approximately 1 cc of Depo-Medrol 80mg/mL and 4 cc of 0.2% ropivacaine was injected without resistance into the medial tibial femoral joint space. The patient tolerated the procedure. (2) Osteoarthritis (arthritis due to wear and tear of joints): Status: Acute (3) Knee pain, bilateral: Status: Acute Advanced Care Planning Discussion Advance care planning discussed with:: patient Office Procedures GNS Level of Care Nursing/Assessment Patient Status: Established Patient Nursing Assessment/Reassesment: Medication Reconciliation, Update PMH in EMR and Vital Signs Coordination of Care: Complex Care and Chronic Disease 1-5, Education Complex Pt/Fam, Consent,records obtained, informed consent, Results/Orders obtained and Staff clarify orders Established Patient Charge Established Patient Point Assignment: 95 Established Patient Point Charge: EP Level 3 (80-115) Surgical Proc/IM SQ injection Major Surgical Procedure: Yes (BILATERAL KNEE INJECTION) Medication Given Medication Given Medication Given: Yes Documented Dose Given: 1 Route: Infiitration Medication Given Medication Given Medication Given: Yes Documented Dose Given: 1 Route: Infiitration Medication Given Medication Given Medication Given: Yes Documented Dose Given: 3 Route: Infiitration Medication Given Medication Given Medication Given: Yes Documented Dose Given: 4 Route: Infiitration Office Meds methylprednisolone acetate 80 mg/mL suspension for injection Performing Provider: Rohit Lai MD Performing Location: [facility] Administered by: Rohit Lai MD on 05/05/25 11:52 Dose Route Admin Location Dispensed Lot Number Expiration Date [facility] [employer] Director 80 mg intra-articular 1 mL [id number] 10/09/26 5218-7552-95 [facility] methylprednisolone acetate 80 mg/mL suspension for injection Performing Provider: Rohit Lai MD Performing Location: [facility] Administered by: Rohit Lai MD on 05/05/25 11:52 Dose Route Admin Location Dispensed Lot Number Expiration Date [facility] [employer] Director 80 mg intra-articular 1 mL [id number] 10/09/26 7958-1444-86 ropivacaine (PF) 2 mg/mL (0.2 %) injection solution Performing Provider: Rohit Lai MD Performing Location: [facility] Administered by: Rohit Lai MD on 05/05/25 11:52 Dose Route Admin Location Dispensed Lot Number Expiration Date [place] [employer] Director 20 mL Infiltration 20 mL [id number] 07/09/26 62177-129-12 [facility] ropivacaine (PF) 2 mg/mL (0.2 %) injection solution Performing Provider: Rohit Lai MD Performing Location: [facility] Administered by: Rohit Lai MD on 05/05/25 11:52 Dose Route Admin Location Dispensed Lot Number Expiration Date [place] [employer] Director 20 mL Infiltration 20 mL [id number] 07/09/26 21292-503-09 [facility] [place] Intake Visit Data Collection New Patient or Established: Established Patient (seen at [facility] within 3 years) Reason for Visit:: BL KNEE INJ FOLLOW UP Seen by Clinical Staff ONLY (RN/MA): No Personal Financial Representative Required: No PCP or OBGYN visit in last 3 months: Yes Hx Now: No Do You Feel Safe at Home: Yes Authorities Contacted: N/A Questionairres Past Medical History Past Medical History Have you ever been diagnosed with any of the following: Neurological Problems Cerebrovascular Accident (CVA): No Transient Ischemic Attacks (TIA): Yes Seizures: No Cardiology Problems Atrial Fibrillation: Yes Hypercholesterolemia: Yes Congestive Heart Failure: No Valvular Heart Disease: Yes Edema: No Hypertension: No Hypotension: Yes Respiratory Problems Chronic Obstructive Pulmonary Disease (COPD): Yes Asthma: No Sleep Apnea: No Smoking: Yes Smoking Cessation Counseling: No Smoking Exposure: Yes Clubbing: No Stomache/Intestinal Problems Gastroesophageal Reflux Disease: Yes Obesity: Yes (gastric bypass) Genital/Urinary Problems Renal Disease: Yes Kidney Stones: No Musculoskeletal Problems Arthritis: Yes (knee) Head,Eye,Nose,Throat Problems Cataracts: Yes Endocrine Problems Diabetes Mellitus Type 1: No Diabetes Mellitus Type 2: Yes Blood Problems Anemia: Yes Sickle Cell Disease: No Psychologic Problems Depression: No Anxiety: No Other Problems Falls: No Blood Transfusions: No Blood Transfusion Reaction: No Anesthesia Reactions: No Cancer: No Surgical History Valve Replacement: Yes Pacemaker: No Subjective Visit Visit for: follow up visit, knee and injections Immunization / Flu Flu Vaccine in the Last 12 Months: No Flu Vaccine Exclusion Criteria: No Exclusion Criteria History of Present Illness Chief complaint: bl knee pain Tessie is a pleasant 69-year-old female with bilateral knee pain. We have treated her conservatively with injections in the past. She does have patella tendinitis as well. She would like repeat cortisone injections as the last ones have lasted for more than 8 months Pain Pain level (0-10): 6 Pain duration: ON AND OFF Pain location: inside (medial) and anterior Pain quality: dull and aching Pain timing: increases with activity Ambulatory data Ambulatory device: none Treatments Number of previous injections: 2 Improvement with previous injections: Yes Improvement with PT: No Improvement with NSAIDS: no Review of Systems Review of Systems: All systems negative unless otherwise noted in HPI.
[2025-05-05 10:43] VITALS: BP 97/67; PULSE 129; RESP 19; TEMP 36.2; O2SAT 97; BMI 21.7
== END 2025-05-05 11:11 | disposition home or self-care (01) ==
LOC: HODSRG 10:33
PROVIDERS: PCP Student in an Organized Health Care Education/Training Program; Referring Provider Student in an Organized Health Care Education/Training Program; Supervising Provider Orthopaedic Surgery Adult Reconstructive Orthopaedic Surgery; Visit Provider Orthopaedic Surgery Adult Reconstructive Orthopaedic Surgery
DX: M17.0 Bilateral primary osteoarthritis of knee (principal); M25.562 Pain in left knee; M25.561 Pain in right knee; M76.50 Patellar tendinitis, unspecified knee; I48.91 Unspecified atrial fibrillation; Z86.73 Personal history of transient ischemic attack (TIA), and cerebral infarction without residual deficits; E78.00 Pure hypercholesterolemia, unspecified; J44.9 Chronic obstructive pulmonary disease, unspecified; K21.9 Gastro-esophageal reflux disease without esophagitis; E11.9 Type 2 diabetes mellitus without complications
CPT/HCPCS: 20610; 99213; J1010; J2795; G0463

== ENCOUNTER 2025-05-07 09:06 | Outpatient (AMB) | payer MEDICARE, SELFPAY ==
[2025-05-07 09:20] VITALS: BP 101/55; PULSE 104; RESP 16; TEMP 36.7; O2SAT 96; BMI 22.4
--- NOTE | 2025-05-07 09:20 | ACNOTE_ITS ---
Vital Signs 05/07/25 09:20 Height 1.63 m Height Method Stated Weight 59.477 kg Weight Measurement Method Standing Scale BMI 22.4 BP 101/55 L Blood Pressure Source Automatic Cuff Blood Pressure Location Left Upper Arm Position Sitting Respiration 16 Pulse 104 H Pulse Source Monitor Temp 98.1 F Temp Source Oral Pulse Oximetry (%) 96 Oxygen Delivery Method Room Air Allergies/Meds Allergies & Medications Allergies banana Allergy (Severe, Verified 05/07/25 09:21) Swelling of Lip/Tongue/Throat chicken derived Allergy (Severe, Verified 05/07/25 09:21) Hives heparin Allergy (Severe, Verified 05/07/25 09:21) Unconscious rice Allergy (Intermediate, Verified 05/07/25 09:21) CHOKES Medication Reconciliation melatonin 3 mg tablet 3 mg PO HS 11/19/23 [History Confirmed 05/07/25] pravastatin 40 mg tablet 40 mg PO QHS #90 tabs 12/02/24 [Rx Confirmed 05/07/25] pregabalin 25 mg capsule (Lyrica) 25 mg PO QHS #30 caps 12/02/24 [Rx Confirmed 05/07/25] benzonatate 100 mg capsule 100 mg PO BID PRN cough #30 caps 12/30/24 [Rx Confirmed 05/07/25] diltiazem HCl 240 mg capsule,extended release 24 hr (Cardizem CD) 240 mg PO QDAY #90 caps 04/07/25 [Rx Confirmed 05/07/25] midodrine 10 mg tablet 10 mg PO TID #90 tabs 04/07/25 [Rx Confirmed 05/07/25] polyethylene glycol 3350 17 gram oral powder packet (Miralax) 17 g PO QDAY PRN constipation #30 ea 04/07/25 [Rx Confirmed 05/07/25] warfarin 5 mg tablet 5 mg PO QDAY #60 tabs 04/07/25 [Rx Confirmed 05/07/25] warfarin 5 mg tablet (Jantoven) 5 mg PO QDAY 04/29/25 [History Confirmed 05/07/25] albuterol sulfate 0.63 mg/3 mL solution for nebulization 0.63 mg (3 mL) inhalation QID PRN wheezing #75 mL 05/07/25 [Rx] fluticasone propionate 110 mcg/actuation HFA aerosol inhaler 1 puff inhalation BID wheezing #12 grams 05/07/25 [Rx] umeclidinium 62.5 mcg-vilanterol 25 mcg/actuation powdr for inhalation (Anoro Ellipta) 1 inh inhalation Q24H #60 ea 05/07/25 [Rx] vitamin B complex-vitamin C-folic acid 0.8 mg tablet 1 tab PO QDAY #90 tabs 05/07/25 [Rx] MA Intake Visit Data Collection New Patient or Established: Established Patient (seen at [facility] within 3 years) Seen by Clinical Staff ONLY (RN/MA): No Pain Present Currently: Yes Pain Location: Knee Pain scale:: 4 PCP or OBGYN visit in last 3 months: Yes Do You Feel Safe at Home: Yes Authorities Contacted: N/A Smoking Status Smoking Status: Former smoker Immunization / Flu Flu Vaccine in the Last 12 Months: Yes Flu Vaccine Exclusion Criteria: No Exclusion Criteria Past Medical History Past Medical History NEUROLOGIC: Positive Transient Ischemic Attacks (TIA); Negative Cerebrovascular Accident or Seizures CARDIAC: Positive Cardiac Disorders, Atrial Fibrillation, Hypercholesterolemia, Valvular Heart Disease and Hypotension; Negative Congestive Heart Failure, Edema or Hypertension RESPIRATORY: Positive Chronic Obstructive Pulmonary Disease (COPD), Smoking and Smoking Exposure; Negative Asthma, Sleep Apnea, Smoking Cessation Counseling or Clubbing GASTROINTESTINAL: Positive Gastrointestinal Disorders, Gastroesophageal Reflux Disease and Obesity (gastric bypass) GENITOURINARY: Positive Genitourinary Disorders and Renal Disease; Negative Kidney Stones MUSCULOSKELETAL: Positive Arthritis (knee) ENT: Positive Cataracts ENDOCRINE: Positive Diabetes Mellitus Type 2; Negative Endocrine Disorders or Diabetes Mellitus Type 1 HEMATOLOGIC: Positive Anemia; Negative Blood Disorders or Sickle Cell Disease PSYCHO/SOCIAL: Negative Depression or Anxiety OTHER HISTORY: Negative Autoimmune Disease, Falls, Blood Transfusions, Blood Transfusion Reaction, Anesthesia Reactions or Cancer Surgical History SURGICAL: Positive Open Heart Surgery, Valve Replacement, Cardiac Catheterization, Oral Surgery (all teeth removed) and Gastric Bypass Surgery; Negative Pacemaker Social History SMOKING STATUS: Smoking status: Former smoker SECOND HAND EXPOSURE: second hand exposure: Yes ALCOHOL: Alcohol Intake: Former ALCOHOL FREQUENCY: Alcohol Intake Frequency: holidays/special occasions only HOUSING: Housing: mobile home LIVES WITH: Lives With: Family Patient Portal Questionaires PHQ-9 PHQ-2 Over the last 2 weeks, how often have you been bothered by any of the following problems? 1. Little interest or pleasure in doing things: not at all PHQ-9 8. Moving or speaking so slowly that other people could have noticed? - Or the opposite - being so fidgety or restless that you have been moving around a lot more than usual: not at all Source: Developed by Drs. Jose Bolivar, Charlene Casillas, Hussein Sherwood and colleagues, with an educational yousuf from [facility]. Social History Living Situation History Lives With: Spouse Housing: mobile home Housing Other:: pt lives with Tobacco History Smoking Status: Former smoker Second Hand Smoke Exposure: Yes Alcohol History Alcohol Intake: Former Alcohol Intake Frequency: holidays/special occasions only Domestic Abuse History Do You Feel Safe at Home: Yes Review of Systems Report any current symptoms Only answer those that you have currently: Past Medical History Past Medical History Have you ever been diagnosed with any of the following: Neurological Problems Cerebrovascular Accident (CVA): No Transient Ischemic Attacks (TIA): Yes Seizures: No Cardiology Problems Atrial Fibrillation: Yes Hypercholesterolemia: Yes Congestive Heart Failure: No Valvular Heart Disease: Yes Edema: No Hypertension: No Hypotension: Yes Respiratory Problems Chronic Obstructive Pulmonary Disease (COPD): Yes Asthma: No Sleep Apnea: No Smoking: Yes Smoking Cessation Counseling: No Smoking Exposure: Yes Clubbing: No Stomache/Intestinal Problems Gastroesophageal Reflux Disease: Yes Obesity: Yes (gastric bypass) Genital/Urinary Problems Renal Disease: Yes Kidney Stones: No Musculoskeletal Problems Arthritis: Yes (knee) Head,Eye,Nose,Throat Problems Cataracts: Yes Endocrine Problems Diabetes Mellitus Type 1: No Diabetes Mellitus Type 2: Yes Blood Problems Anemia: Yes Sickle Cell Disease: No Psychologic Problems Depression: No Anxiety: No Other Problems Autoimmune Disease: No Falls: No Blood Transfusions: No Blood Transfusion Reaction: No Anesthesia Reactions: No Cancer: No Surgical History Valve Replacement: Yes Pacemaker: No History of Present Illness HPI Narrative This 69-year-old female patient with past medical history for A-fib on amiodarone and warfarin, CKD III, COPD not on home oxygen, 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 She was managed for acute COPD exacerbation and atrial fibrilation in the hospital. Patient had problem with insurance coverage hence she was switched from eliquis to warfarin and was started on amiodarone after cardio consult for atrial fibrillation. Patient follows up with Dr Gaines, her outpatient arborer. Patient reported that she feels improvement in her shortness of breath and only feels shortness of breath when she ambulates. Denies any other active concerns. She ran out from her amiodarone and was not taking them and needed refill for the medications. She continues to have irregular rhythm and feels palpitations. Plan was discussed with the patient that she would need INR testing in the lab today. Lab was called that patient's results will be required to be notified at Dr Gaines office once resulted. She was referred to Vacuum Conditioner Operator, Dr Palmer for management of COPD. She was given refills for her medication amiodarone and albuterol inhaler. She was explained that she will need to get INR weekly or get an INR kit from cardiology clinic as warfarin is regulated with INR. She agreed to the plan and was reassured. 12/28/23: Patient was seen at the office today. Patients recent INR is 2.1 which is in therapeutic range. Patient has seen Dr Gaines and he plans to do cardioversion on January 02. She has appointment due in january with her Vacuum Conditioner Operator. She had a concern for pain in her both knee joints more severe while walking. we ordered bilateral Knee XR to look for any pathology.She was advised to take Tylenolol 650 mg upto 3 times a day only for severe pain and stop taking aspirin due to interaction with warfarin. She will recieve an INR kit tomorrow and will follow up with Dr Gaines. She is currently taking warfarin 5 mg qday. She was advised to stop torsemide due to soft blood pressure and jardiance as her recent A1c was 5.3 and blood sugars were slightly above normal during hospital stay.We referred her to Dr Alves, [employer] [employer] for her chronic kidney disease. We will follow on XR knee results.We will continue with rest of the management. 01/18/24: Patient was seen today in office. Patient was very teary and upset due to persistent symptoms of chest pain and shortness of breath. She reported having persistent palpitations and was concerned regarding her follow up with arborer. Per Patient's wishes, we switched her Front Office Clerk, Dr Posadas. I personally spoke to Dr Posadas to have a second opinion for ablation on phone call. He agreed to have a second opinion however due to her severe pulmonary hypertension and mitral valve repair arborer suggested that shes not a candidate for ablation but he will follow up for symptomatic Atrial fib management Of note,Previously, she had a unsuccessful ablation per chart. Therefore , cardiology rec currently to increase her Diltiazem to 60 mg three times a day and continue with amiodarone 100 mg two times a day. Rest of the management will remain the same. She was advise to follow up with arborer, work checker & Orthopedics after scheduling her appt. She was advised to do her INR levels weekly in our [facility] and I will follow up until she sees arborer. She had C/O severe bilateral knee , she has osteoarthritis B/L per XR knee. Per ortho, patient needs to have XR 4V B/L knee weight bearing as well. She was given norco 5/325 only 14 tabs for her severe knee pain. Advised her to follow up after four weeks. 02/08/2024: Patient was seen today at the office visit for follow-up. Patient seem to be asymptomatic and really pleasant and satisfied with her new arborer, Dr. Sherrie Posadas. She reported that she had less frequent episodes of palpitations and shortness of breath. Per cardiology, her Cardizem dose was changed to 60 mg twice daily 2 capsules at morning and night. Patient also visited cartographic aide recommended to continue her inhalers albuterol, fluticasone inhalers. She also visited work checker, Dr Alves. She has microalbuminuria. Labs showed normocytic anemia and kidney functions 30% with creatinine 1.8. We added losartan 25 mg for proteinuria. Medications were refilled. Patient has history of old CVA with ataxia there for she was advised to follow-up with her physical therapy outpatient. Patient reported having regurgitation with retrosternal burning therefore referral was made with box gluer, Dr. Mckeon. She received corticosteroids injections intra- articular last week feels significantly improved when she visited Dr. Lai, orthopedics. 07/01/2024: Patient was seen in the [facility] today. Patient reported to have cough from last 2 weeks associated with white phlegm which is present only when she goes to bed for sleeping. She is actively smoking cigarette 6 cigarettes every day and trying to cut back on that. Patient denied any fever any chills, chest pain, any other signs of infection. She did not had swelling in her lower extremities. She was taking her home medications with compliance. Patient was advised to follow-up next week with new orders chest x- ray, BMP, BNP and was given prescription of prednisone 5 mg for 7 days for possible concern for component of bronchospasm and the underlying setting of COPD as culprit for her productive cough. Examination was significant for cough elicited on prolonged expiration. Patient was advised to continue her home medications as prescribed and will likely be follow-up next week with lab result s. 07/08/24: Pt came for follow up for labs and she showed improvement in her SOB after steroids course and albuterol inhaler in combination with other inhaler. Still compliants of having orhtopnea. Chest x-ray showed B/L edema and mod vasc congestion. BNP 115 and Kidney functions showing Cr 1.8 Electrolyes unremarkable.Patient was advised to take lasix extra dose half pill once in a week to get rid of extra fluids if SBP above 120 and DBP above 80 so taking 60 mg lasix once every week.Will be given referral for Senior Front End Developer for eye examination due to haziness in right eye. 11/04/2024: Patient was seen and examined in the clinic today. Patient has been doing well and did not had any active concerns. She has been feeling very good and has been exercising every day. Examination showed improvement in bilateral air entry and no wheezing was heard. Patient wanted to have a prescription refill for amiodarone, diltiazem, atorvastatin and patient wished to change pharmacy to [place] [facility]. Patient also wanted to have follow-up with concrete batching plant operator for eye checkup, GI follow-up for GERD and OFFICE MACHINE INSPECTOR follow-up for breast examination. Referrals were given. Patient was advised to make an appointment with respective referrals. Medications were reviewed. Patient is getting her labs/blood work by work checker, Dr Alves next month. Of note, patient's Lasix dose was reduced to 20 mg once daily by work checker. 12/02/2024: Patient was seen and examined in the clinic. Patient reported extreme fatigability and burning sensation with numbness and tingling in both lower extremities. She reported that she had an episode of presyncope last week during her wedding. Examination showed no lower extremity edema or wheezing. She was having tachycardia irregularly irregular. She wanted to have prescription for her medications which was given. She was also complaining of muscle soreness and feeling tired. She also reported to have cold intolerance despite warm temperature outside.Plan is to order thyroid function test, iron panel and A1c as all the tests were performed last year. Additionally, atorvastatin was discontinued and pravastatin 40 mg was started given less risk of muscle weakness as compared to atorvastatin. Her blood pressure was really soft and was recommended to take Lasix every other day and follow-up with cardiology in a week. Follow-up in a week in clinic. 12/23/24: Patient was seen and examined in the clinic today. She reported to have fatigability and generalized weakness with dryness of the mouth and dizziness. Patient reported that she has severe headache and has been having low blood pressure. She followed up with arborer a week ago and he recommended to stop taking diltiazem due to soft blood pressure and continue taking amiodarone and Lasix. Labs showed iron level, thyroid functions and A1c within normal limits. He was recommended to hold on Lasix for a week and prefer oral hydration with restarting Lasix on December 30 as every other day due to currently dehydrated clinical volume status. Patient reported to have improvement in her tingling and numbness with Lyrica and continued to had muscle soreness therefore, B12 and CMP were ordered. Her blood pressure was soft during this visit. Will follow-up with the labs. Patient was also complaining of pain in her knees therefore referral was given for physical therapy at least 3 times a week for 8 weeks and orthopedics referral for evaluation and possible another intra-articular steroid injection. Follow-up in a week. 12/30/24: Patient was seen and examined in the clinic with her today. She came for follow-up of her labs. She also reported to have symptoms of flu with cough associated with phlegm from past 3 days. She reported to have mild chills as well. She has been taking osed-pwh-thcusms flu medication. Patient continued to have low blood pressure and appeared dehydrated. Labs were significant for B12 330. CHEM panel was significant for NEHA on CKD with creatinine 1.8 with GFR 31%. Thyroid function and A1c within normal limits. Patient was recommended to hold off on Lasix and follow-up with work checker, Dr Alves within a week. She was prescribed with Augmentin 500 mg twice daily renally dose for 5 days for RTI. She reported to have improvement in her numbness and tingling sensation after Lyrica use. IM B12 shot was given and will be continued once every week. Patient is currently waiting for referral for PT and Ortho for knee pain. 02/10/25: Patient came to clinic for follow up. She was complaining of tremors fro m few weeks and has been taking albuterol inhaler 3 times a week at nighttime. She stated that previous month she received intra-articular steroid injection which helped with her knee joints and has started physical therapy as well. She was confused regarding her medications and therefore, she was provided with list of medications and each medicine was reviewed. Her blood pressure improved from last visits and Timber Skidder recommeneded to keep hold on lasix as she is clinically dehydrated and due to NEHA. She also reported that her INR jumped up to 4.1 and arborer, Dr. Posadas recommended to hold warfarin and she will be repeating her INR upcoming week. She was advised to cut back on smoking which she has been trying to do currently smoking 3 cigarettes every day. Patient was given IM B12 shots and was recommended to follow-up in next 2 weeks to evaluate for improvement in tremors and clinical status. 02/24/2025: Patient came to the clinic for renal panel and PTH lab work follow- up. She stated that her shortness of breath has improved but she has some mild thrush due to use of inhalers. Her breathing inhalers including rescue inhaler and LABA/LAMA and ICS inhaler was discussed and she was shown a video for proper administration of the inhaler. She was switch to levalbuterol from albuterol due to complaint of tremors. She will also prescribed nystatin swish and swallow for oral thrush. Kidney functions showed BUN 28 and creatinine 2.0 with intact PTH 39. Timber Skidder, Dr Alves recommended to to monitor kidney functions for now and she will follow-up with the patient with repeat kidney functions and PTH in March 2025. Patient was informed regarding follow-up with work checker. Patient's INR has been around [address] Posadas, arborer has been following up with dosage of warfarin and patient is currently holding warfarin. She was given IM B12 shots. Follow-up in 3 weeks. 03/29/2025: Patient was seen in the clinic for follow-up. Patient reported feeli ng extremely weak and dizzy. Vitals revealed blood pressure 87/59, heart rate 114, respiratory 18 and saturating 97% room air. She has been loosing weight around 61 kg. She stated that she has been drinking atleast 2 bottles of water 1-1.5 L every day. Exam showed clear Breath sounds. Abdomen was soft mild tenderness in Rt Upper quadrant but roa was negative. She had a colonoscopy by GI specialist Dr Mckeon which showed hemorrhoids and erythermatous mucosa in sigmoid colon and biopsies were taken which were negative for dysplasia and microscopic colitis. Anti-trypsin were elevated and MARISOL was positive. Alpha- fetoprotein, anti-smooth were negative. Liver enzymes was slightly elevated. Hep panel was negative. Patient was informed regarding the results. Patient does have a follow-up with Dr. Mckeon on April 09, 2025. Complement including C3 and C4, [id number] DNA were ordered to screen for lupus. Anti-smooth muscle antibodies were not found. Patient was found to have iron deficiency anemia with severe low iron levels and she was informed that he will need IV iron infusion set up. She will benefit with IV iron therapy once for 2 weeks. Feraheme 510 mg x 2 once every week. Will be sending for further processing. Dr. Posadas, arborer was called and informed regarding patient's of blood pressure and Cardizem was decreased to 180 mg CD every day and amiodarone was continued. Patient reported her INR was 4.0 and her warfarin has been adjusted by arborer. She also reported to have pain in both knees and has been getting physical therapy. Patient had a episode of dizziness and was feeling very weak and was suggested to go to the ER for possible IV fluid resuscitation. ER doctor was notified as well for further evaluation. Patient's was a t the bedside and she took the patient to the ER. 04/09/2025: Patient came to the clinic after being discharged from the hospital x 2 days ago. She was admitted in the hospital for A-fib RVR and was managed. Her medications were changed in the hospital stay. Amiodarone was discontinued and patient was started on Cardizem to 40 CD once daily and digoxin 0.25 mg once a day day along with midodrine 10 mg 3 times daily. Patient reported that she has been feeling better however still feels weaker and short of breath at times. Patient has been taking digoxin and Cardizem along with midodrine. Her blood pressure was noted to be low however she did not take her medication for midodrine and was informed to take her midodrine today. She has an appointment scheduled with Dr. Posadas on April 16, 2025. She was informed that she will need to get a blood level of serum digoxin on April 15, 2025 and follow-up with us in the center on April 16 as well after she will seek arborer. Recommended to continue her medications. No medication changes were made. Prescription refill for redilate was given. 04/16/25: Patient was seen and examined in the clinic today. Patient reported improvement in her dizziness and blood pressure. She was advised to take her medications as prescribed. She reported that she was given a Holter monitor for a week to evaluate need of pacemaker or any rhythm abnormalities per arborer. Serum digoxin level 1.9. Within normal range. She also reported to have chronic burning in the urine therefore phenazopyridine was given as patient cannot take nitrofurantoin due to drug interaction with warfarin increased bleeding risk. Blood pressure readings have been stable with MAP above 72. She is following with work checker on coming 04/20/2025. O rthopedics, Dr. Lai advised her to get total knee replacement however she was suggested to follow-up with Holter monitor results in need of pacemaker first and once cardiology clearance is given she can go for elective total knee replacement afterwards. Warfarin bleeding risks were discussed. Recommended to continue all the medications as prescribed. Patient was not wheezing however for her COPD management she wanted to be followed up with the cartographic aide that will be discussed later as it is not acute problem. 05/07/25: Patient was seen and examined in the clinic today. Patient reported that she has improvement in her symptoms of dizziness and blood pressure. She complained of tremors in her hand which was attributed to beta 1 agonist/albuterol. She was informed that insurance declined levalbuterol. She had a left heart cath with arborer, Dr. Posadas which showed good ejection fraction and mild pulmonary hypertension related to COPD. Group 1 and pulmonary hypertension due to left heart failure was ruled out. Front Office Clerk recommended to continue with COPD management.Mild pulmonary artery hypertension, PA mean pressure 24, systolic 43, diastolic 10, and normal pulmonary artery wedge pressure per [facility] report. Heart rate is effectively controlled with Cardizem and digoxin. Additionally, patient had a intra articular steroid injection in her left knee joint after following with orthopedics, Dr. Lai. Patient concern for her breathing difficulty and was using inhalers. Therefore she was informed to pick new prescription for inhalers and referral was given for cartographic aide, Dr. Steph Xavier. Blood pressure in the clinic was 101/55, heart rate 104. Afebrile. Prescription refill was given for an inhalers and lios- vit. Patient was seen by work checker, Dr Alves who recommended to continue with her medications as kidney functions are stable at this point. Patient will follow-up with arborer on June 22 and work checker on June 29, 2025. Vitamin D levels were ordered for next visit. Follow-up in a month May 28, 2025 Review of Systems Review of Systems Systems Reviewed: All systems reviewed, normal except as documented Objective/Exam Narrative Physical exam: General: Patient is not in acute distress, answering questions appropriately, making appropriate eye contact. HEENT: Normocephalic, atraumatic, EOMI, PERRLA, dry mucous membrane Cardiac: irregular rate and rhythm, normal S1/S2, systolic murmur grade 3 more on apex. Lungs: Bilateral clear breath sounds heard on auscultation. mild wheezing heard on coughing Abdomen: Soft, mildly tender in right upper quadrant. Roa sign negative., nondistended, positive bowel sounds in all quadrants. No guarding or rebound tenderness. Neurology:Alert and oriented x 3. Cranial nerves II to XII intact and patient able to move all 4 extremities. Difficulty in walking and getting up from chair due to the knee arthritis. Extremities: Normal to inspection, no edema, no cyanosis, strong peripheral pulses. Psych: appropriate mood and affect. Assessment & Plan Diagnosis / Problem List (1) COPD (chronic obstructive pulmonary disease): Status: Acute Qualifiers: COPD type: unspecified COPD Qualified Code(s): J44.9 - Chronic obstructive pulmonary disease, unspecified Assessment & Plan: - Patient has a longstanding history of smoking cigarettes [id number] history. - She was using Dania/LAMA/LABA with steroids inhaler as needed - Patient is able to cut back smoking and has not been smoking cigarettes from last 2 to 3 months Plan: - Prescription refill given for Anoro Ellipta, fluticasone, albuterol as needed as patient was using inhalers - Referral given for cartographic aide, Dr Steph Soto at [place] - Recommended to use Anoro Ellipta once a day, albuterol as rescue inhaler and fluticasone 2 puffs as needed once daily - Advised for smoking cessation (2) Pulmonary hypertension due to COPD: Status: Acute Assessment & Plan: - Left heart cath showed mild pulmonary hypertension likely due to COPD per cardiology -Mild pulmonary artery hypertension, PA mean pressure 24, systolic 43, diastolic 10, and normal pulmonary artery wedge pressure per [facility] report Plan: - Continue breathing inhalers and refer to cartographic aide for outpatient PFTs and further management - Pulmonary hypertension due to class I and class II rule out on left heart cath (3) CKD (chronic kidney disease) stage 3, GFR 30-59 ml/min: Status: Acute Qualifiers: Chronic kidney disease stage 3 subtype: stage 3b (GFR 30-44) Qualified Code(s): N18.32 - Chronic kidney disease, stage 3b Assessment & Plan: - Patient was seen by work checker, Dr Alves and kidney functions are stable currently Plan: - Recommended to continue Renavit - Follow-up with vitamin D levels - Next appointment with work checker on June 29 with new labs (4) Atrial fibrillation with rapid ventricular response: Status: Acute Assessment & Plan: - Currently heart rate has been controlled. Blood pressure remains stable with midodrine - Digoxin level 3.0 per 04/18/2025 Plan: - Continue digoxin, Cardizem with midodrine as tolerated (5) Osteoarthritis (arthritis due to wear and tear of joints): Status: Acute Assessment & Plan: - Patient is using cane and following orthopedics, Dr. Lai Plan: - Recommended to take Tylenol for pain and intra-articular steroid injection given Patient was seen and discussed with attending Physician,Dr Debra Thomas MD PGY3 Orders: Orders Vitamin D 25 Hydroxy Total 06/10/25 N18.32 - Chronic kidney disease, stage 3b Referrals Pulmonology I27.23 - Pulmonary hypertension due to lung diseases and hypoxia, J44.9 - Chronic obstructive pulmonary disease, unspecified Advanced Care Planning Advance care planning discussed with:: patient Office Procedures [facility] Level of Care Nursing/Assessment Patient Status: Established Patient Nursing Assessment/Reassessment: Medication Reconciliation, Update PMH in EMR and Vital Signs Coordination of Care: Complex Care and Chronic Disease 1-5, Education Complex Pt/Fam and Staff clarify orders Established Patient Charge Established Patient Point Assignment: 85 Established Patient Point Charge: EP Level 3 (80-115)
== END 2025-05-07 10:30 | disposition home or self-care (01) ==
LOC: HODAHC 09:06
PROVIDERS: PCP Student in an Organized Health Care Education/Training Program; Referring Provider Student in an Organized Health Care Education/Training Program; Supervising Provider Student in an Organized Health Care Education/Training Program; Visit Provider Student in an Organized Health Care Education/Training Program
DX: I27.23 Pulmonary hypertension due to lung diseases and hypoxia (principal); J44.9 Chronic obstructive pulmonary disease, unspecified; I27.20 Pulmonary hypertension, unspecified; Z76.0 Encounter for issue of repeat prescription; N18.30 Chronic kidney disease, stage 3 unspecified; I48.91 Unspecified atrial fibrillation; M19.90 Unspecified osteoarthritis, unspecified site
CPT/HCPCS: 99213; G0463

== ENCOUNTER 2025-06-17 13:11 | Outpatient (AMB) | payer MEDICARE, SELFPAY ==
[2025-06-17 13:56] VITALS: BP 95/67; PULSE 103; RESP 16; TEMP 36; O2SAT 96; BMI 22.8
--- NOTE | 2025-06-17 13:56 | PD.RESCLINIC ---
Vital Signs 06/17/25 13:56 Height 1.63 m Height Method Stated Weight 60.781 kg Weight Measurement Method Standing Scale BMI 22.8 BP 95/67 Blood Pressure Source Automatic Cuff Blood Pressure Location Left Upper Arm Position Sitting Respiration 16 Pulse 103 H Pulse Source Monitor Temp 96.8 F Temp Source Oral Pulse Oximetry (%) 96 Oxygen Delivery Method Room Air Allergies/Meds Allergies & Medications Allergies banana Allergy (Severe, Verified 06/17/25 13:57) Swelling of Lip/Tongue/Throat chicken derived Allergy (Severe, Verified 06/17/25 13:57) Hives heparin Allergy (Severe, Verified 06/17/25 13:57) Unconscious rice Allergy (Intermediate, Verified 06/17/25 13:57) CHOKES Medication Reconciliation melatonin 3 mg tablet 3 mg PO HS 11/19/23 [History Confirmed 06/17/25] pregabalin 25 mg capsule (Lyrica) 25 mg PO QHS #30 caps 12/02/24 [Rx Confirmed 06/17/25] benzonatate 100 mg capsule 100 mg PO BID PRN cough #30 caps 12/30/24 [Rx Confirmed 06/17/25] diltiazem HCl 240 mg capsule,extended release 24 hr (Cardizem CD) 240 mg PO QDAY #90 caps 04/07/25 [Rx Confirmed 06/17/25] polyethylene glycol 3350 17 gram oral powder packet (Miralax) 17 g PO QDAY PRN constipation #30 ea 04/07/25 [Rx Confirmed 06/17/25] warfarin 5 mg tablet 5 mg PO QDAY #60 tabs 04/07/25 [Rx Confirmed 06/17/25] warfarin 5 mg tablet (Jantoven) 5 mg PO QDAY 04/29/25 [History Confirmed 06/17/25] albuterol sulfate 0.63 mg/3 mL solution for nebulization 0.63 mg (3 mL) inhalation QID PRN wheezing #75 mL 05/07/25 [Rx Confirmed 06/17/25] fluticasone propionate 110 mcg/actuation HFA aerosol inhaler 1 puff inhalation BID wheezing #12 grams 05/07/25 [Rx Confirmed 06/17/25] umeclidinium 62.5 mcg-vilanterol 25 mcg/actuation powdr for inhalation (Anoro Ellipta) 1 inh inhalation Q24H #60 ea 05/07/25 [Rx Confirmed 06/17/25] vitamin B complex-vitamin C-folic acid 0.8 mg tablet 1 tab PO QDAY #90 tabs 05/07/25 [Rx Confirmed 06/17/25] midodrine 10 mg tablet 10 mg PO TID 3 months #270 tabs 06/01/25 [Rx Confirmed 06/17/25] pravastatin 40 mg tablet 40 mg PO QHS #90 tabs 06/01/25 [Rx Confirmed 06/17/25] MA Intake Visit Data Collection New Patient or Established: Established Patient (seen at [facility] within 3 years) Seen by Clinical Staff ONLY (RN/MA): No Pain Present Currently: No Pain scale:: 0 Pain Scale Used: [employer]/Numerical PCP or OBGYN visit in last 3 months: Yes Smoking Status Smoking Status: Former smoker Immunization / Flu Flu Vaccine in the Last 12 Months: No Flu Vaccine Exclusion Criteria: No Exclusion Criteria Past Medical History Past Medical History NEUROLOGIC: Positive Transient Ischemic Attacks (TIA); Negative Cerebrovascular Accident or Seizures CARDIAC: Positive Cardiac Disorders, Atrial Fibrillation, Hypercholesterolemia, Valvular Heart Disease and Hypotension; Negative Congestive Heart Failure, Edema or Hypertension RESPIRATORY: Positive Chronic Obstructive Pulmonary Disease (COPD), Smoking and Smoking Exposure; Negative Asthma, Sleep Apnea, Smoking Cessation Counseling or Clubbing GASTROINTESTINAL: Positive Gastrointestinal Disorders, Gastroesophageal Reflux Disease and Obesity (gastric bypass) GENITOURINARY: Positive Genitourinary Disorders and Renal Disease; Negative Kidney Stones MUSCULOSKELETAL: Positive Arthritis (knee) ENT: Positive Cataracts ENDOCRINE: Positive Diabetes Mellitus Type 2; Negative Endocrine Disorders or Diabetes Mellitus Type 1 HEMATOLOGIC: Positive Anemia; Negative Blood Disorders or Sickle Cell Disease PSYCHO/SOCIAL: Negative Depression or Anxiety OTHER HISTORY: Negative Autoimmune Disease, Falls, Blood Transfusions, Blood Transfusion Reaction, Anesthesia Reactions or Cancer Surgical History SURGICAL: Positive Open Heart Surgery, Valve Replacement, Cardiac Catheterization, Oral Surgery (all teeth removed) and Gastric Bypass Surgery; Negative Pacemaker Social History SMOKING STATUS: Smoking status: Former smoker SECOND HAND EXPOSURE: second hand exposure: Yes ALCOHOL: Alcohol Intake: Former ALCOHOL FREQUENCY: Alcohol Intake Frequency: holidays/special occasions only HOUSING: Housing: mobile home LIVES WITH: Lives With: Family Patient Portal Questionaires PHQ-9 PHQ-2 Over the last 2 weeks, how often have you been bothered by any of the following problems? 1. Little interest or pleasure in doing things: not at all PHQ-9 8. Moving or speaking so slowly that other people could have noticed? - Or the opposite - being so fidgety or restless that you have been moving around a lot more than usual: not at all Source: Developed by Drs. Jose Bolivar, Charlene Casillas, Hussein Sherwood and colleagues, with an educational yousuf from [employer]. Social History Living Situation History Lives With: Spouse Housing: mobile home Housing Other:: pt lives with Tobacco History Smoking Status: Former smoker Second Hand Smoke Exposure: Yes Alcohol History Alcohol Intake: Former Alcohol Intake Frequency: holidays/special occasions only Review of Systems Report any current symptoms Only answer those that you have currently: Past Medical History Past Medical History Have you ever been diagnosed with any of the following: Neurological Problems Cerebrovascular Accident (CVA): No Transient Ischemic Attacks (TIA): Yes Seizures: No Cardiology Problems Atrial Fibrillation: Yes Hypercholesterolemia: Yes Congestive Heart Failure: No Valvular Heart Disease: Yes Edema: No Hypertension: No Hypotension: Yes Respiratory Problems Chronic Obstructive Pulmonary Disease (COPD): Yes Asthma: No Sleep Apnea: No Smoking: Yes Smoking Cessation Counseling: No Smoking Exposure: Yes Clubbing: No Stomache/Intestinal Problems Gastroesophageal Reflux Disease: Yes Obesity: Yes (gastric bypass) Genital/Urinary Problems Renal Disease: Yes Kidney Stones: No Musculoskeletal Problems Arthritis: Yes (knee) Head,Eye,Nose,Throat Problems Cataracts: Yes Endocrine Problems Diabetes Mellitus Type 1: No Diabetes Mellitus Type 2: Yes Blood Problems Anemia: Yes Sickle Cell Disease: No Psychologic Problems Depression: No Anxiety: No Other Problems Autoimmune Disease: No Falls: No Blood Transfusions: No Blood Transfusion Reaction: No Anesthesia Reactions: No Cancer: No Surgical History Valve Replacement: Yes Pacemaker: No History of Present Illness HPI Narrative Patient here for follow up for lab results. Immunology pannel was positive for MARISOL, with MARISOL titers 1:80. She denies any headache, joint pain, rashes, no weight loss, CBC normal. Explained to patient that levels of titers are low and no further testing needs to be done. Suggested to repeat in few weeks however she is requesting rheumatology refferal. All other autoimmune workup inclding SLE, scleroderma, sjogrens were negative. Complement levels were WNL limits. 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 No other changes made to management. Review of Systems Review of Systems Systems Reviewed: All systems reviewed, normal except as documented Narrative Review of Systems: complains for horse voice, but denies any dysphagia or difficulty breathing. Possibly due to allergies. Objective/Exam Narrative Physical exam: General: Patient is not in acute distress, answering questions appropriately, making appropriate eye contact. HEENT: Normocephalic, atraumatic, EOMI, PERRLA, moist mucous membrane Cardiac: irregular rate and rhythm, normal S1/S2, systolic murmur grade 3 more on apex. Lungs: Bilateral clear breath sounds heard on auscultation. Abdomen: Soft, nondistenede, nontender. Neurology:Alert and oriented x 3. Cranial nerves II to XII intact and patient able to move all 4 extremities. Difficulty in walking and getting up from chair due to the knee arthritis. Extremities: Normal to inspection, no edema, no cyanosis, strong peripheral pulses. Psych: appropriate mood and affect. Assessment & Plan Diagnosis / Problem List (1) MARISOL positive: Status: Acute Assessment & Plan: Immunology pannel was positive for MARISOL, with MARISOL titers 1:80. She denies any headache, joint pain, rashes, no weight loss, CBC normal. Explained to patient that levels of titers are low and no further testing needs to be done. Suggested to repeat in few weeks however she is requesting rheumatology refferal. All other autoimmune workup inclding SLE, scleroderma, sjogrens were negative. Complement levels were WNL limits Plan: Rheumatology referral Orders: Referrals Rheumatology Advanced Care Planning Advance care planning discussed with:: patient Office Procedures [facility] Level of Care Nursing/Assessment Patient Status: Established Patient Nursing Assessment/Reassessment: Medication Reconciliation, Update PMH in EMR and Vital Signs Coordination of Care: Complex Care and Chronic Disease 1-5, Complex Care/Chronic Disease 5 or more, Education Complex Pt/Fam, Ref for ancillary service, Results/Orders obtained and Staff clarify orders Established Patient Charge Established Patient Point Assignment: 145 Established Patient Point Charge: Level 4 (120-155)
== END 2025-06-17 14:33 | disposition home or self-care (01) ==
LOC: HODAHC 13:11
PROVIDERS: PCP Student in an Organized Health Care Education/Training Program; Referring Provider Student in an Organized Health Care Education/Training Program; Supervising Provider Internal Medicine
DX: Z71.2 Person consulting for explanation of examination or test findings (principal); R76.0 Raised antibody titer
CPT/HCPCS: 99214; G0463

== ENCOUNTER → 2025-08-13 | Outpatient (CLI) | payer MEDICARE, MEDICAID, SELFPAY ==
[2025-08-13 08:37] LABS: Basophils # (Auto) 0.0 Thou/mm3 (0.0-0.2); Basophils % (Auto) 0 % (0-2.5); Eosinophils # (Auto) 0.1 Thou/mm3 (0.0-0.5); Eosinophils % (Auto) 2 % (0-10); Hematocrit 34.2 % (36.0-46.0); Hemoglobin 11.0 g/dL (12.0-16.0); Immature Granulocytes Auto 0.01 Thou/mm3 (0.00-0.00); Lymphocytes # (Auto) 1.1 Thou/mm3 (1.0-4.8); Lymphocytes % (Auto) 22 % (10-50); Mean Corpuscular HGB Conc 32.2 g/dl (31.0-37.0); Mean Corpuscular Hemoglobin 32.2 pg (25.0-35.0); Mean Corpuscular Volume 100 fL (80-100); Monocytes # (Auto) 0.4 Thou/mm3 (0.0-0.8); Monocytes % (Auto) 8 % (0-12); Neutrophils # (Auto) 3.2 Thou/mm3 (1.8-7.7); Neutrophils % (Auto) 67 % (37-80); Nucleated Red Blood Cell # 0.00 Thou/mm3 (0.00-0.00); Nucleated Red Blood Cell % 0 /100 WBC (0); Platelet Count 201 Thou/mm3 (140-440); RDW Standard Deviation 60.3 fL (36.4-46.3); Red Blood Count 3.42 Miln/mm3 (4.00-5.20); White Blood Count 4.8 Thou/mm3 (3.6-11.0)
[2025-08-13 08:54] LABS: Parathyroid Hormone Intact 32.8 pg/ml (18.5-88.0)
[2025-08-13 12:46] LABS: Albumin, Serum 3.5 gm/dL (3.4-4.8); Anion Gap 10 (7-16); BUN/Creatinine Ratio 15 Ratio (12-20); Blood Urea Nitrogen 21 mg/dL (9-23); Calcium 9.5 mg/dL (8.3-10.6); Calcium (Corrected) 9.9 mg/dL (8.5-10.1); Carbon Dioxide 24.7 mMol/L (20.0-31.0); Chloride 111 mMol/L (98-107); Creatinine (Component) 1.4 mg/dL (0.6-1.3); Glucose 61 mg/dL (74-106); Osmolality,Calculated 291 (275-295); Phosphorous 3.5 mg/dL (2.4-5.1); Potassium 4.4 mMol/L (3.4-5.1); Sodium 146 mMol/L (136-145); eGFR 41 See Note
[2025-08-13 12:52] LABS: Collection Type, Urine Clean Catch
[2025-08-13 13:26] LABS: Bilirubin,Urine Negative (Negative); Blood,Urine Negative (Negative); Calcium Oxalate Crystals,Urine 3+; Color,Urine Yellow (Lt Yel-Yel); Glucose, Urine Negative (Negative); Hyaline Casts,Urine < 1 /hpf (0-1); Ketones,Urine Negative (Negative); Leukocyte Esterase,Urine Positive (Negative); Nitrite,Urine Negative (Negative); PH,Urine 5.5 (5.0-7.0); Protein,Urine Negative (Neg - Trace); RBC,Urine 10 /hpf (0-3); Specific Gravity,Urine 1.015 (1.001-1.035); Squamous Epithelial Cell,Urine 17 /hpf (0-5); Urobilinogen,Urine Negative mg/dL (0.0-1.0); WBC,Urine 29 /hpf (0-5)
[2025-08-13 13:29] LABS: Clarity,Urine Hazy (Clear/Hazy)
== END | disposition home or self-care (01) ==
LOC: COPL 06:51
PROVIDERS: PCP Student in an Organized Health Care Education/Training Program; Referring Provider Student in an Organized Health Care Education/Training Program; Visit Provider Internal Medicine
DX: I12.9 Hypertensive chronic kidney disease with stage 1 through stage 4 chronic kidney disease, or unspecified chronic kidney disease (principal); N18.30 Chronic kidney disease, stage 3 unspecified
CPT/HCPCS: 36415; 80069; 81001; 83970; 85025

== ENCOUNTER → 2025-08-20 | Outpatient (CLI) | payer MEDICARE, MEDICAID, SELFPAY ==
[2025-08-20 08:40] LABS: Sed Rate (ESR) 20 mm/hr (0-30)
[2025-08-20 09:30] LABS: C-Reactive Protein < 0.5 mg/dL (0.0-0.9); Uric Acid 5.3 mg/dL (3.1-7.8)
[2025-08-20 10:09] LABS: RA Screen Negative (Negative)
[2025-08-26 06:24] LABS: CCP Antibody (IgG)* <16 Units; HLA-B27 Antigen* NEGATIVE (NEGATIVE)
== END | disposition home or self-care (01) ==
LOC: COPL 06:38
PROVIDERS: PCP Student in an Organized Health Care Education/Training Program; Referring Provider Internal Medicine Rheumatology; Visit Provider Internal Medicine Rheumatology
DX: M15.9 Polyosteoarthritis, unspecified (principal); R76.0 Raised antibody titer
CPT/HCPCS: 36415; 84550; 85652; 86140; 86200; 86430; 86812